=== PATIENT | female | born 1935 | race Caucasian/White ===

== ENCOUNTER → 2017-08-14 | Outpatient (CLI) | payer MEDICARE ==
[~2017-08-14] MED LIST: ACET500 PO; ALBIPROI; ALBIPROI INH; ALBU90OI INH; ALBU90OI6 INH; ALLO100; ALLO300 PO; ARTHRITIS PAIN650 MG PO; ASPI81CH PO; ATOR10; AZIT500 PO; BENZ100A PO; BISA10S PR; CALCAVITD PO; CEPH500 PO; CLIN150 PO; COLC.6 PO; CONEST.625 VAG; CONESTTC PV; CONESTTC VAG; CRUTCH USE; Ceftin500 MG PO; DOC250 PO; DOCU100 PO; DULO30 PO; FAMO40; FLUT220OIA; FOSI10; FOSI10 PO; FURO80; FURO80 PO; GABA100 PO; GABA300 PO; GABA600 PO; GUAI600T33 PO; HYDACE5 PO; Humalog100 UNIT/1 SC; INSLI100I; INSLI100I SC; INSLIS75I; INSUASPI SC; INSULANI; INSULANI SC; INSULANPEN SC; Keflex500 MG PO; LANOXIN125 MCG PO; LEVO750 PO; LEVSOD100 PO; LEVSOD50 PO; LEVSOD75 PO; LISI20 PO; LOPE2C PO; Lantus100 UNIT/1 SC; Lasix80 MG PO; METCAR500 PO; METF500; METF500 PO; METO2.5 PO; MIRALAX17 GM PO; MULTI-DAY PLUS1 EAC1 PO; MYRBETRIQ25 MG PO; Micro-K10 MEQ PO; NITR100CA PO; Novolog100 UNIT/2 SC; OLME20 PO; OXYACE5T PO; OXYC5 PO; PANT40 PO; POLY17UD PO; POTA10T PO; POTCHL20ER; POTCHL20ER PO; PRED10 PO; PYRI100 PO; RXOXYACE PO; SERT100 PO; SERT50 PO; STOOL SOFTENER PO; TAMS.4ER PO; TRAM50 PO; TRAZ50 PO; Veramyst10 GM; Veramyst10 GM NS; Vitamin B Comple1 EA PO; Vitamin D2000 UNIT PO; WARF1; WARF1 PO; WARF5 PO; WHEELCHAIR USE; ZINC15 PO; Zofran Odt4 MG SL; [UNRECOGNIZED DRUG - OTHER]; [UNRECOGNIZED DRUG - OTHER]
[2017-08-14 18:27] LABS: Bilirubin, Urine Neg (Neg); Blood, Urine 1+ (Neg); Glucose Qualitative, Urine Neg (Neg); Ketones, Urine Neg (Neg); Leukocyte Esterase, Urine Neg (Neg); Nitrite, Urine Neg (Neg); Protein, Urine 2+ (Neg); Urobilinogen, Urine NORM (Normal)
[2017-08-14 18:34] LABS: Appearance, Urine Clear (Clear); Color, Urine Pale Yellow (P-Yellow)
[2017-08-14 18:36] LABS: Bacteria Few /hpf; Squamous Epithelial Cells Few /hpf (Few)
== END ==
LOC: LAB SHORT 14:00
PROVIDERS: Internal Medicine Hematology & Oncology
DX: N39.0 Urinary tract infection, site not specified (principal)
CPT/HCPCS: 81001

== ENCOUNTER 2017-11-07 13:05 | Emergency (ER) | payer MEDICARE, OTHER ==
[~2017-11-07] VITALS: Ht 162.6 cm; Wt 105.7 kg
[~2017-11-07 13:05] MED LIST changes: -ACET500 PO; -ALBU90OI INH; -Humalog100 UNIT/1 SC; -LOPE2C PO; -Lasix80 MG PO; -MIRALAX17 GM PO; -PANT40 PO; -POTA10T PO; -TRAM50 PO
[2017-11-07] MEDS ORDERED: ACET500 PO (15:07)
[2017-11-07] MEDS ORDERED: FURO80 PO (15:10)
[2017-11-07 15:12] LABS: BASOPHILS ABSOLUTE AUTO 0.03 K/mm3 (0.00-0.23); BASOPHILS PERCENT AUTO 1 % (0-2); EOSINOPHILS ABSOLUTE AUTO 0.15 K/mm3 (0.00-0.68); EOSINOPHILS PERCENT AUTO 2 % (0-6); Hematocrit 37.1 % (33.0-51.0); Hemoglobin 11.4 g/dL (11.5-16.0); IMMATURE GRAN ABSOLUTE AUTO 0.04 K/mm3 (0.00-0.10); IMMATURE GRAN PERCENT AUTO 1 % (0-1); LYMPHOCYTES ABSOLUTE AUTO 1.27 K/mm3 (0.84-5.20); LYMPHOCYTES PERCENT AUTO 20 % (21-46); MONOCYTES ABSOLUTE AUTO 0.43 K/mm3 (0.16-1.47); MONOCYTES PERCENT AUTO 7 % (4-13); Mean Corpuscular HGB 27.8 pg (26.0-34.0); Mean Corpuscular HGB Conc 30.7 g/dL (31.5-36.5); Mean Corpuscular Volume 91 fL (80-100); NEUTROPHILS ABSOLUTE AUTO 4.32 K/mm3 (1.96-9.15); NEUTROPHILS PERCENT AUTO 69 % (41-73); Platelet Count 107 K/mm3 (150-400); RDW Coefficient Variation 14.8 % (11.7-14.2); RDW Standard Deviation 48.7 fL (35.1-46.3); White Blood Cell Count 6.24 K/mm3 (4.00-11.30)
[2017-11-07 15:16] LABS: Mean Platelet Volume 13.2 fL (9.1-12.4)
[2017-11-07] MEDS ORDERED: Humalog100 UNIT/1 SC (15:16)
[2017-11-07] MEDS ORDERED: ALBU90OI INH (15:19)
[2017-11-07] MEDS ORDERED: LOPE2C PO (15:23)
[2017-11-07] MEDS ORDERED: MIRALAX17 GM PO (15:26)
[2017-11-07] MEDS ORDERED: GUAI600T33 PO (15:28)
[2017-11-07] MEDS ORDERED: PANT40 PO (15:28)
[2017-11-07 15:31] LABS: Prothrombin Time Results 46.2 Sec (9.7-11.5)
[2017-11-07 15:53] LABS: International Normalized Ratio 4.25
== END 2017-11-07 16:38 | disposition home or self-care (01) ==
LOC: ER 13:05
PROVIDERS: Emergency Medicine
DX: M25.562 Pain in left knee (principal); D68.59 Other primary thrombophilia; E11.40 Type 2 diabetes mellitus with diabetic neuropathy, unspecified; Z87.891 Personal history of nicotine dependence; Z88.0 Allergy status to penicillin; Z88.1 Allergy status to other antibiotic agents; Z88.7 Allergy status to serum and vaccine; Z79.01 Long term (current) use of anticoagulants; Z79.4 Long term (current) use of insulin; Z79.899 Other long term (current) drug therapy
CPT/HCPCS: 36415; 73564; 85025; 85610; 93971; 99284

== ENCOUNTER 2017-11-10 18:08 | Emergency (ER) | payer MEDICARE, OTHER ==
[~2017-11-10] VITALS: Ht 167.6 cm; Wt 105.7 kg
[~2017-11-10 18:08] MED LIST changes: +ACET500 PO; +ALBU90OI INH; +Humalog100 UNIT/1 SC; +LOPE2C PO; +MIRALAX17 GM PO; +PANT40 PO
[2017-11-10 19:56] LABS: International Normalized Ratio 1.46; Prothrombin Time Results 15.4 Sec (9.7-11.5)
[2017-11-10] MEDS ORDERED: TRAM50 PO (21:19)
== END 2017-11-10 21:27 | disposition home or self-care (01) ==
LOC: ER 18:08
PROVIDERS: Physician Assistant
DX: M25.562 Pain in left knee (principal); I13.0 Hypertensive heart and chronic kidney disease with heart failure and stage 1 through stage 4 chronic kidney disease, or unspecified chronic kidney disease; E11.22 Type 2 diabetes mellitus with diabetic chronic kidney disease; I50.9 Heart failure, unspecified; N18.9 Chronic kidney disease, unspecified; E11.40 Type 2 diabetes mellitus with diabetic neuropathy, unspecified; I48.91 Unspecified atrial fibrillation; J44.9 Chronic obstructive pulmonary disease, unspecified; E78.5 Hyperlipidemia, unspecified; E03.9 Hypothyroidism, unspecified; F32.9 Major depressive disorder, single episode, unspecified; E66.01 Morbid (severe) obesity due to excess calories; Z88.0 Allergy status to penicillin; Z88.7 Allergy status to serum and vaccine; Z88.1 Allergy status to other antibiotic agents; Z88.8 Allergy status to other drugs, medicaments and biological substances; Z79.899 Other long term (current) drug therapy; Z79.4 Long term (current) use of insulin; Z79.01 Long term (current) use of anticoagulants; Z87.891 Personal history of nicotine dependence; Z68.37 Body mass index [BMI] 37.0-37.9, adult
CPT/HCPCS: 36415; 85610; 93971; 99284

== ENCOUNTER 2017-11-28 00:07 | Day surgery (SDC) | payer MEDICARE, OTHER ==
[~2017-11-28 00:07] MED LIST changes: +TRAM50 PO
== END 2017-11-28 23:04 | disposition home or self-care (01) ==
LOC: WOUND 00:07
DX: Z48.00 Encounter for change or removal of nonsurgical wound dressing (principal); E11.622 Type 2 diabetes mellitus with other skin ulcer; L97.822 Non-pressure chronic ulcer of other part of left lower leg with fat layer exposed; I87.2 Venous insufficiency (chronic) (peripheral); R60.0 Localized edema; I70.209 Unspecified atherosclerosis of native arteries of extremities, unspecified extremity; I50.22 Chronic systolic (congestive) heart failure; E11.40 Type 2 diabetes mellitus with diabetic neuropathy, unspecified; I10 Essential (primary) hypertension; G47.30 Sleep apnea, unspecified
CPT/HCPCS: G0463

== ENCOUNTER 2017-12-02 09:24 | Day surgery (SDC) | payer MEDICARE, OTHER | END 2017-12-02 22:53 | disposition home or self-care (01) | LOC: WOUND 09:24 | DX: Z48.00 Encounter for change or removal of nonsurgical wound dressing (principal); E11.622 Type 2 diabetes mellitus with other skin ulcer; L97.329 Non-pressure chronic ulcer of left ankle with unspecified severity; I87.2 Venous insufficiency (chronic) (peripheral); I11.0 Hypertensive heart disease with heart failure; R60.0 Localized edema; I70.209 Unspecified atherosclerosis of native arteries of extremities, unspecified extremity; I50.22 Chronic systolic (congestive) heart failure; E11.40 Type 2 diabetes mellitus with diabetic neuropathy, unspecified; Z79.01 Long term (current) use of anticoagulants | CPT/HCPCS: G0463 ==

== ENCOUNTER 2018-02-17 08:03 | Day surgery (SDC) | payer MEDICARE, OTHER ==
[~2018-02-17] VITALS: Ht 162.6 cm; Wt 103.6 kg
== END 2018-02-17 11:35 | disposition home or self-care (01) ==
LOC: ORSCSDS 08:03
PROVIDERS: Internal Medicine Gastroenterology
PROC: 0DBN8ZX Excision of Sigmoid Colon, Via Natural or Artificial Opening Endoscopic, Diagnostic (ICD-10-PCS; principal; 2018-02-17 10:00)
DX: Z12.11 Encounter for screening for malignant neoplasm of colon (principal); D12.5 Benign neoplasm of sigmoid colon; K57.30 Diverticulosis of large intestine without perforation or abscess without bleeding; Z86.010 Personal history of colon polyps; I48.91 Unspecified atrial fibrillation; I50.9 Heart failure, unspecified; J44.9 Chronic obstructive pulmonary disease, unspecified; G47.33 Obstructive sleep apnea (adult) (pediatric); E11.9 Type 2 diabetes mellitus without complications; E03.9 Hypothyroidism, unspecified; Z87.891 Personal history of nicotine dependence; Z79.01 Long term (current) use of anticoagulants; Z79.4 Long term (current) use of insulin; Z79.899 Other long term (current) drug therapy; E66.9 Obesity, unspecified; Z68.39 Body mass index [BMI] 39.0-39.9, adult
CPT/HCPCS: 82947; 88305; J2405; J7120

== ENCOUNTER → 2018-07-30 | Outpatient (CLI) | payer OTHER ==
[~2018-07-30] MED LIST changes: +Lasix80 MG PO; +POTA10T PO
== END | disposition home or self-care (01) ==
LOC: LAB SHORT 13:30 → LAB 13:30
DX: E11.9 Type 2 diabetes mellitus without complications (principal)
CPT/HCPCS: 83036

== ENCOUNTER 2018-08-18 12:03 | Emergency (ER) | payer OTHER ==
[~2018-08-18] VITALS: Ht 165.1 cm; Wt 104.3 kg
[~2018-08-18 12:03] MED LIST changes: -8HR ARTHRITIS650 M1 PO; -DIGOX125 MCG PO; -ERGO400 PO; -GLUCAGEN1 MG/1 ML IM; -K-Dur20 MEQ PO; -Novolog100 UNIT/2; -WARF6 PO; -Zoloft100 MG PO; -Zyloprim300 MG PO
[2018-09-24] MEDS ORDERED: INSULANPEN SC ×2 (12:35)
[2018-09-24] MEDS ORDERED: FURO80 PO (12:36)
[2018-09-24] MEDS ORDERED: Novolog100 UNIT/2 (12:36)
[2018-09-24] MEDS ORDERED: LEVSOD100 PO (12:37)
[2018-09-24] MEDS ORDERED: GABA600 PO (12:37)
[2018-09-24] MEDS ORDERED: DIGOX125 MCG PO (12:37)
[2018-09-24] MEDS ORDERED: WARF6 PO (12:37)
[2018-09-24] MEDS ORDERED: Zoloft100 MG PO (12:38)
[2018-09-24] MEDS ORDERED: 8HR ARTHRITIS650 M1 PO (12:38)
[2018-09-24] MEDS ORDERED: Zyloprim300 MG PO (12:38)
[2018-09-24] MEDS ORDERED: ERGO400 PO (12:39)
[2018-09-24] MEDS ORDERED: GLUCAGEN1 MG/1 ML IM (12:39)
[2018-09-24] MEDS ORDERED: K-Dur20 MEQ PO (12:40)
[2018-09-24] MEDS ORDERED: ALBU90OI INH (12:40)
[2018-09-24] MEDS ORDERED: TAMS.4ER PO (12:40)
[2018-09-24] MEDS ORDERED: GUAI600T33 PO (12:40)
[2018-09-24] MEDS ORDERED: TRAM50 PO (12:41)
[2018-09-24] MEDS ORDERED: MIRALAX17 GM PO (12:41)
[2018-09-24] MEDS ORDERED: PANT40 PO (12:41)
== END 2018-08-18 16:07 | disposition home or self-care (01) ==
LOC: ER 12:03
DX: R42 Dizziness and giddiness (principal); R79.1 Abnormal coagulation profile; R79.89 Other specified abnormal findings of blood chemistry; I13.0 Hypertensive heart and chronic kidney disease with heart failure and stage 1 through stage 4 chronic kidney disease, or unspecified chronic kidney disease; E11.22 Type 2 diabetes mellitus with diabetic chronic kidney disease; N18.9 Chronic kidney disease, unspecified; I50.9 Heart failure, unspecified; I48.91 Unspecified atrial fibrillation; J44.9 Chronic obstructive pulmonary disease, unspecified; E78.5 Hyperlipidemia, unspecified; E03.9 Hypothyroidism, unspecified; F32.9 Major depressive disorder, single episode, unspecified; E11.40 Type 2 diabetes mellitus with diabetic neuropathy, unspecified; Z88.0 Allergy status to penicillin; Z88.8 Allergy status to other drugs, medicaments and biological substances; Z88.1 Allergy status to other antibiotic agents; Z79.899 Other long term (current) drug therapy; Z79.01 Long term (current) use of anticoagulants; Z79.4 Long term (current) use of insulin; Z87.891 Personal history of nicotine dependence; Z51.81 Encounter for therapeutic drug level monitoring
CPT/HCPCS: 36415; 80053; 80162; 84436; 84443; 84480; 84484; 85025; 85610; 93005; 93010; 99284-25

== ENCOUNTER → 2018-08-18 | Outpatient (CLI) | payer OTHER ==
[~2018-08-18] MED LIST changes: +8HR ARTHRITIS650 M1 PO; +DIGOX125 MCG PO; +ERGO400 PO; +GLUCAGEN1 MG/1 ML IM; +K-Dur20 MEQ PO; +Novolog100 UNIT/2; +WARF6 PO; +Zoloft100 MG PO; +Zyloprim300 MG PO
[2018-08-18 11:12] LABS: BASOPHILS ABSOLUTE AUTO 0.02 K/mm3 (0.00-0.23); BASOPHILS PERCENT AUTO 0 % (0-2); EOSINOPHILS ABSOLUTE AUTO 0.08 K/mm3 (0.00-0.68); EOSINOPHILS PERCENT AUTO 1 % (0-6); Hematocrit 37.8 % (33.0-51.0); Hemoglobin 11.3 g/dL (11.5-16.0); IMMATURE GRAN ABSOLUTE AUTO 0.04 K/mm3 (0.00-0.10); IMMATURE GRAN PERCENT AUTO 1 % (0-1); LYMPHOCYTES ABSOLUTE AUTO 0.75 K/mm3 (0.84-5.20); LYMPHOCYTES PERCENT AUTO 12 % (21-46); MONOCYTES ABSOLUTE AUTO 0.43 K/mm3 (0.16-1.47); MONOCYTES PERCENT AUTO 7 % (4-13); Mean Corpuscular HGB 26.4 pg (26.0-34.0); Mean Corpuscular HGB Conc 29.9 g/dL (31.5-36.5); Mean Corpuscular Volume 88 fL (80-100); Mean Platelet Volume 13.5 fL (9.1-12.4); NEUTROPHILS ABSOLUTE AUTO 4.99 K/mm3 (1.96-9.15); NEUTROPHILS PERCENT AUTO 79 % (41-73); Platelet Count 105 K/mm3 (150-400); RDW Coefficient Variation 15.4 % (11.7-14.2); RDW Standard Deviation 49.1 fL (35.1-46.3); Red Blood Cell Count 4.28 M/mm3 (3.80-5.20); White Blood Cell Count 6.31 K/mm3 (4.00-11.30)
[2018-08-18 11:26] LABS: Albumin, Blood 3.3 g/dL (3.4-5.0); Albumin/Globulin Ratio 0.9 (0.8-1.8); Bilirubin, Total 0.3 mg/dL (0.1-1.0); Bun/Creatinine Ratio 41.3 (12.0-20.0); Calcium, Blood 9.5 mg/dL (8.5-10.1); Creatinine, Blood 1.55 mg/dL (0.40-1.00); Globulin, Blood 3.8 g/dL (2.2-4.0); Potassium, Blood 4.8 mmol/L (3.5-5.5); Total Protein, Blood 7.1 g/dL (6.4-8.2)
[2018-08-18 12:18] LABS: Prothrombin Time Results 39.9 Sec (9.7-11.5)
[2018-08-18 12:36] LABS: International Normalized Ratio 4.2
== END ==
LOC: LAB EV 11:08 → LAB SHORT 11:08
PROVIDERS: Physician Assistant Medical
DX: Z79.01 Long term (current) use of anticoagulants (principal); Z51.81 Encounter for therapeutic drug level monitoring; R42 Dizziness and giddiness
CPT/HCPCS: 80053; 80162; 85025; 85610

== ENCOUNTER 2018-08-21 14:12 | Emergency (ER) | payer OTHER ==
[~2018-08-21] VITALS: Ht 162.6 cm; Wt 103.9 kg
[2018-08-21 15:32] LABS: BASOPHILS ABSOLUTE AUTO 0.03 K/mm3 (0.00-0.23); BASOPHILS PERCENT AUTO 1 % (0-2); EOSINOPHILS ABSOLUTE AUTO 0.14 K/mm3 (0.00-0.68); EOSINOPHILS PERCENT AUTO 2 % (0-6); Hematocrit 35.4 % (33.0-51.0); Hemoglobin 10.4 g/dL (11.5-16.0); IMMATURE GRAN ABSOLUTE AUTO 0.04 K/mm3 (0.00-0.10); IMMATURE GRAN PERCENT AUTO 1 % (0-1); LYMPHOCYTES ABSOLUTE AUTO 1.51 K/mm3 (0.84-5.20); LYMPHOCYTES PERCENT AUTO 23 % (21-46); MONOCYTES PERCENT AUTO 6 % (4-13); Mean Corpuscular HGB 26.7 pg (26.0-34.0); Mean Corpuscular HGB Conc 29.4 g/dL (31.5-36.5); NEUTROPHILS ABSOLUTE AUTO 4.51 K/mm3 (1.96-9.15); NEUTROPHILS PERCENT AUTO 68 % (41-73); Platelet Count 100 K/mm3 (150-400); RDW Coefficient Variation 15.2 % (11.7-14.2); RDW Standard Deviation 50.8 fL (35.1-46.3); White Blood Cell Count 6.63 K/mm3 (4.00-11.30)
[2018-08-21 15:41] LABS: Albumin, Blood 3.2 g/dL (3.4-5.0); Albumin/Globulin Ratio 0.9 (0.8-1.8); Bilirubin, Total 0.3 mg/dL (0.1-1.0); Bun/Creatinine Ratio 38.5 (12.0-20.0); Creatinine, Blood 1.48 mg/dL (0.40-1.00); Globulin, Blood 3.6 g/dL (2.2-4.0); Potassium, Blood 4.9 mmol/L (3.5-5.5); Total Protein, Blood 6.8 g/dL (6.4-8.2)
[2018-08-21 15:53] LABS: Mean Corpuscular Volume 91 fL (80-100); Mean Platelet Volume 13.9 fL (9.1-12.4)
[2018-09-24] MEDS ORDERED: INSULANPEN SC ×2 (12:35)
[2018-09-24] MEDS ORDERED: FURO80 PO (12:36)
[2018-09-24] MEDS ORDERED: Novolog100 UNIT/2 (12:36)
[2018-09-24] MEDS ORDERED: DIGOX125 MCG PO (12:37)
[2018-09-24] MEDS ORDERED: WARF6 PO (12:37)
[2018-09-24] MEDS ORDERED: LEVSOD100 PO (12:37)
[2018-09-24] MEDS ORDERED: GABA600 PO (12:37)
[2018-09-24] MEDS ORDERED: Zyloprim300 MG PO (12:38)
[2018-09-24] MEDS ORDERED: 8HR ARTHRITIS650 M1 PO (12:38)
[2018-09-24] MEDS ORDERED: Zoloft100 MG PO (12:38)
[2018-09-24] MEDS ORDERED: ERGO400 PO (12:39)
[2018-09-24] MEDS ORDERED: GLUCAGEN1 MG/1 ML IM (12:39)
[2018-09-24] MEDS ORDERED: GUAI600T33 PO (12:40)
[2018-09-24] MEDS ORDERED: ALBU90OI INH (12:40)
[2018-09-24] MEDS ORDERED: K-Dur20 MEQ PO (12:40)
[2018-09-24] MEDS ORDERED: TAMS.4ER PO (12:40)
[2018-09-24] MEDS ORDERED: MIRALAX17 GM PO (12:41)
[2018-09-24] MEDS ORDERED: PANT40 PO (12:41)
[2018-09-24] MEDS ORDERED: TRAM50 PO (12:41)
== END 2018-08-21 20:10 | disposition home or self-care (01) ==
LOC: ER 14:12
PROVIDERS: Physician Assistant
DX: L03.116 Cellulitis of left lower limb (principal); E11.40 Type 2 diabetes mellitus with diabetic neuropathy, unspecified; M10.9 Gout, unspecified; Z87.891 Personal history of nicotine dependence; Z79.4 Long term (current) use of insulin; Z79.899 Other long term (current) drug therapy; Z79.01 Long term (current) use of anticoagulants
CPT/HCPCS: 36415; 73590; 80053; 83605; 84436; 84443; 84480; 85025; 85610; 87040; 96365; 99284-25; J0690

== ENCOUNTER → 2018-10-21 | Outpatient (CLI) | payer OTHER ==
[~2018-10-21] MED LIST changes: +8HR ARTHRITIS650 M1 PO; +DIGOX125 MCG PO; +ERGO400 PO; +GLUCAGEN1 MG/1 ML IM; +K-Dur20 MEQ PO; +Novolog100 UNIT/2; +WARF6 PO; +Zoloft100 MG PO; +Zyloprim300 MG PO
[2018-10-21 09:08] LABS: Source, Urine Clean Catch
[2018-10-21 09:19] LABS: Bilirubin, Urine Neg (Neg); Blood, Urine 1+ (Neg); Glucose Qualitative, Urine Neg (Neg); Ketones, Urine Neg (Neg); Leukocyte Esterase, Urine 3+ (Neg); Nitrite, Urine Neg (Neg); Protein, Urine 2+ (Neg); Specific Gravity, Urine 1.005 (1.003-1.022); Urobilinogen, Urine NORM (Normal)
[2018-10-21 09:37] LABS: Appearance, Urine Hazy (Clear); Bacteria Few /hpf; Color, Urine Pale Yellow (P-Yellow); Red Blood Cells, Urine 0-2 /hpf (0-2); Squamous Epithelial Cells Few /hpf (Few)
== END ==
LOC: LAB 09:06 → LAB SHORT 09:06
PROVIDERS: Internal Medicine Hematology & Oncology
DX: N39.0 Urinary tract infection, site not specified (principal)
CPT/HCPCS: 81001; 87077; 87086; 87186

== ENCOUNTER 2018-11-10 09:51 | Emergency (ER) | payer OTHER ==
[~2018-11-10] VITALS: Ht 167.6 cm; Wt 108.9 kg
[~2018-11-10 09:51] MED LIST changes: -8HR ARTHRITIS650 M1 PO; +LEVSOD88 PO; +Tylophen500 MG PO; -WARF6 PO
[2018-11-10] MEDS ORDERED: MECL12.5 PO (15:36)
[2018-11-11] MEDS ORDERED: FURO80 PO (13:01)
[2018-11-11] MEDS ORDERED: LOSA25 PO (13:06)
[2018-11-11] MEDS ORDERED: ROPI.25 PO (13:07)
== END 2018-11-10 17:00 | disposition home or self-care (01) ==
LOC: ER 09:51
DX: R42 Dizziness and giddiness (principal); R11.0 Nausea; Z88.0 Allergy status to penicillin; Z88.7 Allergy status to serum and vaccine; Z88.1 Allergy status to other antibiotic agents; Z88.8 Allergy status to other drugs, medicaments and biological substances; Z79.4 Long term (current) use of insulin; Z79.01 Long term (current) use of anticoagulants; Z79.899 Other long term (current) drug therapy; E11.40 Type 2 diabetes mellitus with diabetic neuropathy, unspecified; J44.9 Chronic obstructive pulmonary disease, unspecified; I13.0 Hypertensive heart and chronic kidney disease with heart failure and stage 1 through stage 4 chronic kidney disease, or unspecified chronic kidney disease; E11.22 Type 2 diabetes mellitus with diabetic chronic kidney disease; N18.3 Chronic kidney disease, stage 3 (moderate); I50.32 Chronic diastolic (congestive) heart failure; Z87.891 Personal history of nicotine dependence
CPT/HCPCS: 70450; 99284-25

== ENCOUNTER 2018-11-11 12:07 | Inpatient (IN) | payer OTHER ==
[~2018-11-11] VITALS: Ht 172.7 cm; Wt 103.0 kg
[~2018-11-11 12:07] MED LIST changes: +MECL12.5 PO
[2018-11-11] MEDS ORDERED: FURO80 PO (13:01)
[2018-11-11] MEDS ORDERED: LOSA25 PO (13:06)
[2018-11-11] MEDS ORDERED: ROPI.25 PO (13:07)
[2018-11-11 14:53] LABS: D-Dimer, Quantitative 0.56 mg/L FEU (0.00-0.52); International Normalized Ratio 1.94; Prothrombin Time Results 19.4 Sec (9.7-11.5)
[2018-11-11 15:23] LABS: Bicarbonate Venous 30.5 mmol/L (24.0-30.0); pH Blood Venous 7.33 (7.34-7.37)
[2018-11-11 17:49] LABS: PCO2 Arterial 59.5 mmHg (35-45); pH Blood Arterial 7.37 (7.35-7.45)
[2018-11-11 17:50] LABS: PO2 Arterial 49.5 mmHg (80-100)
[2018-11-11 18:24] LABS: BASOPHILS ABSOLUTE AUTO 0.04 K/mm3 (0.00-0.23); BASOPHILS PERCENT AUTO 1 % (0-2); EOSINOPHILS ABSOLUTE AUTO 0.19 K/mm3 (0.00-0.68); EOSINOPHILS PERCENT AUTO 3 % (0-6); Hematocrit 40.5 % (33.0-51.0); Hemoglobin 11.4 g/dL (11.5-16.0); IMMATURE GRAN ABSOLUTE AUTO 0.03 K/mm3 (0.00-0.10); IMMATURE GRAN PERCENT AUTO 0 % (0-1); LYMPHOCYTES ABSOLUTE AUTO 1.71 K/mm3 (0.84-5.20); LYMPHOCYTES PERCENT AUTO 23 % (21-46); MONOCYTES ABSOLUTE AUTO 0.48 K/mm3 (0.16-1.47); MONOCYTES PERCENT AUTO 6 % (4-13); Mean Corpuscular HGB 25.3 pg (26.0-34.0); Mean Corpuscular HGB Conc 28.1 g/dL (31.5-36.5); Mean Corpuscular Volume 90 fL (80-100); NEUTROPHILS ABSOLUTE AUTO 5.13 K/mm3 (1.96-9.15); NEUTROPHILS PERCENT AUTO 68 % (41-73); Platelet Count 117 K/mm3 (150-400); RDW Coefficient Variation 15.4 % (11.7-14.2); RDW Standard Deviation 50.6 fL (35.1-46.3); White Blood Cell Count 7.58 K/mm3 (4.00-11.30)
[2018-11-11 18:33] LABS: Albumin, Blood 3.2 g/dL (3.4-5.0); Albumin/Globulin Ratio 0.8 (0.8-1.8); Bilirubin, Total 0.4 mg/dL (0.1-1.0); Bun/Creatinine Ratio 41.3 (12.0-20.0); Calcium, Blood 9.2 mg/dL (8.5-10.1); Creatinine, Blood 1.79 mg/dL (0.40-1.00); Globulin, Blood 3.9 g/dL (2.2-4.0); Total Protein, Blood 7.1 g/dL (6.4-8.2)
[2018-11-11 18:54] LABS: Digoxin (Lanoxin) 1.21 ug/mL (0.80-2.00)
--- NOTE | 2018-11-11 22:30 | NUR ---
PCU ADMIT PT BROUGHT TO PCU RM 13 FROM THE ER BY LIZETH @ APPROX 2110. PT A&O X4, ABLE TO STAND AND TRANSFER FROM [facility] TO U BED W/ 1 PERSON ASSIST. PT SOB W/ ACTIVITY. SPO2 > 90% W/ 2L NC. LUNG SOUNDS CLEAR T/O, DIM IN BASES. OCCASSIONAL NONPRODUCTIVE COUGH. MONITOR SHOWS SR W/ FIRST DEGREE & BUNDLE BRANCH BLOCK. SKIN CLEAN AND DRY, SCATTERED BRUISING T/O. BUTTOCKS PURPLE/RED W/ 1 DIME SIZED OPEN SORE, SEE PHOTO IN CHART, MEPILEX DRESSING APPLIED. PT STATES HAVING CHRONIC L LEG ULCER THAT SHE SEES MD BRAXTON FOR. PT STATES L LEG WOUND DRESSED BY MD BRAXTON. DRESSING C/D/I. THIS RN LEAVING DRESSING IN PLACE. PT IS A RESIDENT AT "[facility]" [facility]IST[facility]. WILL CONTINUE TO MONITOR AND PROVIDE CARE.
--- NOTE | 2018-11-12 04:44 | NUR ---
SHIFT SUMMARY PT A&O X4, CALM AND COOPERATIVE. PT SLEEPING T/O MAJORITY OF SHIFT. LUNG SOUNDS CLEAR T/O, DIM IN BASES. SPO2 > 92% ON RA WHILE AT REST. PT SOB W/ MINOR ACTIVTY LIKE REPOSITIONING IN BED, RECQUIRING O2 @ 2L NC. PT HAS OCCASSIONAL NONPRODUCTIVE COUGH. RESPIRATORY PANEL SPECIMEN SENT TO LAB THIS SHIFT. VSS. SEE PREVIOUS ADMIT NOTE FOR FURTHER DETAILED SUMMARY. WILL CONTINUE TO MONITOR AND PROVIDE CARE FOR PT UNTIL REPORT OFF TO DAY SHIFT RN.
[2018-11-12 05:28] LABS: Adenovirus Not Detected (NOT DETECT); Bordetella pertussis Not Detected (NOT DETECT); Chlamydophila pneumoniae Not Detected (NOT DETECT); Coronavirus 229E Not Detected (NOT DETECT); Coronavirus HKU1 Not Detected (NOT DETECT); Coronavirus NL63 Not Detected (NOT DETECT); Coronavirus OC43 Not Detected (NOT DETECT); Human Metapneumovirus Not Detected (NOT DETECT); Human Rhinovirus/Enterovirus Not Detected (NOT DETECT); Influenza A Not Detected (NOT DETECT); Influenza A/2009-H1 Not Detected (NOT DETECT); Influenza A/H1 Not Detected (NOT DETECT); Influenza A/H3 Not Detected (NOT DETECT); Influenza B Not Detected (NOT DETECT); Mycoplasma pneumoniae Not Detected (NOT DETECT); Parainfluenza Virus 1 Not Detected (NOT DETECT); Parainfluenza Virus 2 Not Detected (NOT DETECT); Parainfluenza Virus 3 Not Detected (NOT DETECT); Parainfluenza Virus 4 Not Detected (NOT DETECT); Respiratory Syncytial Virus Not Detected (NOT DETECT)
[2018-11-12 06:03] LABS: Hematocrit 37.2 % (33.0-51.0); Hemoglobin 10.5 g/dL (11.5-16.0); Mean Corpuscular HGB 25.2 pg (26.0-34.0); Mean Corpuscular HGB Conc 28.2 g/dL (31.5-36.5); Mean Corpuscular Volume 89 fL (80-100); Platelet Count 96 K/mm3 (150-400); RDW Coefficient Variation 15.3 % (11.7-14.2); RDW Standard Deviation 50.1 fL (35.1-46.3); Red Blood Cell Count 4.16 M/mm3 (3.80-5.20); White Blood Cell Count 6.28 K/mm3 (4.00-11.30)
[2018-11-12 06:22] LABS: International Normalized Ratio 2.02; Prothrombin Time Results 20.1 Sec (9.7-11.5)
[2018-11-12 06:42] LABS: Source, Urine Catheter
[2018-11-12 06:48] LABS: Appearance, Urine Clear (Clear); Bilirubin, Urine Neg (Neg); Blood, Urine 4+ (Neg); Color, Urine Yellow (P-Yellow); Glucose Qualitative, Urine Neg (Neg); Ketones, Urine Neg (Neg); Leukocyte Esterase, Urine 1+ (Neg); Nitrite, Urine Neg (Neg); Protein, Urine 2+ (Neg); Specific Gravity, Urine 1.015 (1.003-1.022); Urobilinogen, Urine NORM (Normal)
[2018-11-12 06:56] LABS: Bacteria Few /hpf; Granular Casts 0-2 /lpf (0); Squamous Epithelial Cells Rare /hpf (Few)
[2018-11-12 07:00] LABS: Bun/Creatinine Ratio 44.7 (12.0-20.0); Calcium, Blood 9.2 mg/dL (8.5-10.1); Creatinine, Blood 1.59 mg/dL (0.40-1.00); Potassium, Blood 4.4 mmol/L (3.5-5.5)
--- NOTE | 2018-11-12 15:16 | NUR ---
Echocardiogram completed.
--- NOTE | 2018-11-12 17:23 | NUR ---
SHIFT SUMMARY PT HAS BEEN SLEEPING A LOT OF THE SHIFT. SHORTNESS OF BREATH WITH 02 DESATURATION WITH EXERTION. THIS RN HAD TO INCREASED PT'S OXYGEN TO 3L FROM 2L THIS AM. PT'S OXYGEN SATURATION 90-91%. NO COMPLAINTS OF PAIN THIS SHIFT. DRESSING TO LLE INTACT. NO ACUTE CHANGES THIS SHIFT. CALL LIGHT IN REACH. BED ALARM ON FOR FALL RISK SAFETY. WILL CONTINUE TO MONITOR AND REPORT TO ONCOMING RN.
--- NOTE | 2018-11-13 04:06 | NUR ---
SHIFT SUMMARY: PATIENT SLEPT WELL THIS SHIFT, UP TO BSC X2 WITH 1 PERSON MINIMAL ASSIST. PATIENT USING CALL LIGHT APPROPRIATLY, VSS, AFEBRILE. PATIENT RIGHT COLON APPEARS TO HAVE A NEW ABRASION, WILL PLACE MEPELEX ON. BED LOW AND LOCKED, CALL LIGHT WITHIN REACH, MONITORED CLOSELY.
[2018-11-13 04:22] LABS: BASOPHILS ABSOLUTE AUTO 0.03 K/mm3 (0.00-0.23); BASOPHILS PERCENT AUTO 1 % (0-2); EOSINOPHILS ABSOLUTE AUTO 0.23 K/mm3 (0.00-0.68); EOSINOPHILS PERCENT AUTO 4 % (0-6); Hematocrit 36.7 % (33.0-51.0); Hemoglobin 10.4 g/dL (11.5-16.0); IMMATURE GRAN ABSOLUTE AUTO 0.02 K/mm3 (0.00-0.10); IMMATURE GRAN PERCENT AUTO 0 % (0-1); LYMPHOCYTES ABSOLUTE AUTO 1.33 K/mm3 (0.84-5.20); LYMPHOCYTES PERCENT AUTO 21 % (21-46); MONOCYTES ABSOLUTE AUTO 0.38 K/mm3 (0.16-1.47); MONOCYTES PERCENT AUTO 6 % (4-13); Mean Corpuscular HGB 25.7 pg (26.0-34.0); Mean Corpuscular HGB Conc 28.3 g/dL (31.5-36.5); Mean Corpuscular Volume 91 fL (80-100); NEUTROPHILS ABSOLUTE AUTO 4.23 K/mm3 (1.96-9.15); NEUTROPHILS PERCENT AUTO 68 % (41-73); Platelet Count 109 K/mm3 (150-400); RDW Coefficient Variation 15.2 % (11.7-14.2); RDW Standard Deviation 50.8 fL (35.1-46.3); Red Blood Cell Count 4.04 M/mm3 (3.80-5.20); White Blood Cell Count 6.22 K/mm3 (4.00-11.30)
[2018-11-13 04:34] LABS: International Normalized Ratio 2.38; Prothrombin Time Results 23.3 Sec (9.7-11.5)
[2018-11-13 04:42] LABS: Albumin, Blood 3.1 g/dL (3.4-5.0); Anion Gap 2 mmol/L (6-16); Blood Urea Nitrogen 66 mg/dL (8-24); Bun/Creatinine Ratio 41.5 (12.0-20.0); CO2, Blood 37 mmol/L (21-32); Calcium, Blood 9.3 mg/dL (8.5-10.1); Chloride, Blood 104 mmol/L (98-108); Creatinine, Blood 1.59 mg/dL (0.40-1.00); Glomerular Filtration Rate 33 (60-); Glucose, Blood 142 mg/dL (70-99); Phosphorus, Blood 3.1 mg/dL (2.5-4.9); Potassium, Blood 4.3 mmol/L (3.5-5.5); Sodium, Blood 143 mmol/L (136-145); Troponin I 0.063 ng/mL (0.000-0.040)
--- NOTE | 2018-11-13 19:18 | NUR ---
END OF SHIFT SUMMARY PT HAS BEEN POLITE AND COOPERATIVE WITH CARE ALL SHIFT. PT AXO 4, LUNGS LEAR TO DIM, NSR BBB 1 DEGREE BLOCK. VS STABLE T/O SHIFT EXCEPT EPISODE OF HTN TREATED WITH APRESOLINE. PT ACTIVELY DIURESING, HAS VOIDED MULTIPLE TIMES THIS SHIFT. PT CONTINUES TO BE ON 3L NC, O2 SAT >92%. PER PT, DR BRAXTON PODIATRY WAS SUPPOSED TO COME AND ASSESS LLE STATUS WITH UNABOOT, DR NOT PRESENT THIS SHIFT. DUE TO SLIGHY BUMPED TROPONIN, DR VILLA ASKED FOR CARDIOLOGY CONSULT, DR ALVAREZ TO SEE PATIENT. NO NEW REPORT AVAILABLE AT THIS POINT. DR APARICIO PLANNING TO DC PT IF OK'S BY CARDIOLOGY. [facility], PTS LIVING FACILITY, DOES NOT ACCEPT INTAKES ON WEEKEND. PT TO BE HERE UNTIL FRIDAY. ONCOMING NURSE NOTIFIED. PT AWARE OF THIS.
--- NOTE | 2018-11-13 19:45 | NUR ---
ASSUMED CARE PT RESTING IN ROOM COMFORTBALY. PER DAY SHIFT PT HAD NO ACUTE CHANGES IN STATUS. PT TO BE DC'D HOME TO [facility] AFTER WEEKEND, INTERMEDIATE WILL NOT TAKE ADMITS OVER WEEKEND. CARDIO ON CASE TO ASSESS PT FOR DC. RESP EVEN UNLBAORED ON 3L NC O2 SATS >92%, PT DOES DESAT W/ EXERTION. DENIES PAIN. PREVENTATIVE MEPILEX TO RLE, PT REPORTS SEE'S DR BRAXTON FOR CHRONIC WOUND TO COLON. CALL LIGHT IS IN REACH. PT IS SBA TO BSC. OCCASIONALLY CONFUSED. CALL LIGHT IS IN REACH.
[2018-11-14 04:59] LABS: BASOPHILS ABSOLUTE AUTO 0.03 K/mm3 (0.00-0.23); BASOPHILS PERCENT AUTO 1 % (0-2); EOSINOPHILS ABSOLUTE AUTO 0.25 K/mm3 (0.00-0.68); EOSINOPHILS PERCENT AUTO 4 % (0-6); Hematocrit 36.8 % (33.0-51.0); Hemoglobin 10.5 g/dL (11.5-16.0); IMMATURE GRAN ABSOLUTE AUTO 0.04 K/mm3 (0.00-0.10); IMMATURE GRAN PERCENT AUTO 1 % (0-1); LYMPHOCYTES PERCENT AUTO 21 % (21-46); MONOCYTES ABSOLUTE AUTO 0.45 K/mm3 (0.16-1.47); MONOCYTES PERCENT AUTO 7 % (4-13); Mean Corpuscular HGB 25.6 pg (26.0-34.0); Mean Corpuscular HGB Conc 28.5 g/dL (31.5-36.5); Mean Corpuscular Volume 90 fL (80-100); NEUTROPHILS ABSOLUTE AUTO 4.16 K/mm3 (1.96-9.15); NEUTROPHILS PERCENT AUTO 67 % (41-73); Platelet Count 109 K/mm3 (150-400); RDW Coefficient Variation 15.4 % (11.7-14.2); RDW Standard Deviation 50.4 fL (35.1-46.3); White Blood Cell Count 6.23 K/mm3 (4.00-11.30)
[2018-11-14 05:09] LABS: International Normalized Ratio 2.07; Prothrombin Time Results 20.5 Sec (9.7-11.5)
[2018-11-14 05:14] LABS: Bun/Creatinine Ratio 46.6 (12.0-20.0); Calcium, Blood 9.6 mg/dL (8.5-10.1); Creatinine, Blood 1.46 mg/dL (0.40-1.00); Potassium, Blood 4.1 mmol/L (3.5-5.5)
--- NOTE | 2018-11-14 05:30 | NUR ---
SHIFT SUMMARY PT SLEEPING IN ROOM COMFORTABLY. NO ACUTE CHANGES IN STATUS T/O NIGHT. PT SLEPT WELL AND HAD NO COMPLAINST OF PAIN. RESP EVEN UNLBAORED ON 3L NC W/ SATS >92%. PT TOOK O2 OFF MULTIPLE TIMES DURING NIGHT WHILE SLEEPING, SATS DROPPED AT THESE TIMES. ONCE OXYGEN WAS REPLACED SATS INCREASED TO 90-92%. DENIES PAIN, DENIES OTHER NEEDS. PT ABLE TO REPOSITION SELF IN BED. CALL LIGHT IN REACH.
--- NOTE | 2018-11-14 15:22 | NUR ---
Just minutes after starting the azithromycin and vancomycin infusions, the pt had sudden onset nausea without vomiting. Both IVPBs were paused and the pt was given zofran. She reports feeling better now. Azithromycin was restarted, and the vancomycin will be administered afterwards.
--- NOTE | 2018-11-14 15:31 | NUR ---
PHYSICIAN NOTIFIED 1400 PT HAS BEEN NOTICEABLY LESS COHERENT TODAY AND INCREASINGLY SOMNOLENT. PT ADMITS TO HAVING OBSTRUCTIVE SLEEP APNEA BUT HAS REFUSED TO USE CPAP. DR APARICIO CALLED ABOUT THE SOMNOLENCE AND COHERENCY. DR APARICIO PLACES ORDER FOR RT TO SET UP CPAP. STATES ABG'S WILL BE USELESS IF PATIENT WILL NOT AT LEAST USE CPAP TO HELP WITH OXYGENATION WHILE SLEEPING.
--- NOTE | 2018-11-14 19:38 | NUR ---
END OF SHIFT SUMMARY ASSUMED CARE OF PT @07OO. PT SOMNOLENT, MORE THAN LAST SHIFT, SOMEWHAT CONFUSED. PT MENTAL STATUS DECREASED ENOUGH TO CALL PROVIDER. SEE PREV NOTE REGARDING CALL. A RESULT OF CALL, RT CALLED TO SETUP CPAP IN ROOM. PT HAS TOLERATED IT AND STATES BEING WILLING TO ATTEMPT USING IT WHILE SLEEPING TONIGHT. PT'S MENTAL SLUGGISHNESS HAS DECREASED THIS PM SINCE AM, PT NOW NOT FALLING ASLEEP MID SENTENCE AND IS HOLDING LONG CONVERSATIONS WITH STAFF. VS HAVE REMAINED STABLE THIS SHIFT. PT HAS BEEN UP TO BSC AND CHAIR MULTIPLE TIMES THIS SHIFT. NO DR TO CHECK UNABOOT. LUNG INFILTRATES FOUND, DR ORDERED THREE STAT ABX, NEW LINE STARTED TO ACCOMMODATE. ALL ABX HAVE BEEN INFUSED. PT NOW SITTING IN CHAIR EATING. HANDOFF GIVEN TO ONCOMING RN.
--- NOTE | 2018-11-14 19:45 | NUR ---
ASSUMED CARE PT IS RESTING IN RECLINER AT BEDSIDE AT THIS TIME. PER DAY SHIFT PT HAD SOME CHANGES IN STAYS, NEW INFILTRATES IN LUNG WERE FOUND. PT WAS PLACED ON MULTIPLE ABX TO TREAT, W/ A CPAP TRIAL FOR OVERNIGHT. PT WORE CPAP FOR SHORT PERIODS DURING THE DAY AND TOLERATED FAIR. PT REPORTS WILL TRY TO WEAR MASK TONIGHT. RESP EVEN UNLBAORED ON 3L NC W/ SATS 90-92%. DENIES PAIN AT THIS TIME. PT IS SBA TO RR W/ 4WW. SOME DYSPNEA W/ AMBULATION. CALL LIGHT IS IN REACH.
[2018-11-15 04:22] LABS: BASOPHILS ABSOLUTE AUTO 0.02 K/mm3 (0.00-0.23); BASOPHILS PERCENT AUTO 0 % (0-2); EOSINOPHILS ABSOLUTE AUTO 0.01 K/mm3 (0.00-0.68); EOSINOPHILS PERCENT AUTO 0 % (0-6); Hematocrit 38.5 % (33.0-51.0); Hemoglobin 10.9 g/dL (11.5-16.0); IMMATURE GRAN ABSOLUTE AUTO 0.05 K/mm3 (0.00-0.10); IMMATURE GRAN PERCENT AUTO 1 % (0-1); LYMPHOCYTES ABSOLUTE AUTO 0.72 K/mm3 (0.84-5.20); LYMPHOCYTES PERCENT AUTO 9 % (21-46); MONOCYTES PERCENT AUTO 4 % (4-13); Mean Corpuscular HGB 25.2 pg (26.0-34.0); Mean Corpuscular HGB Conc 28.3 g/dL (31.5-36.5); Mean Corpuscular Volume 89 fL (80-100); NEUTROPHILS ABSOLUTE AUTO 6.86 K/mm3 (1.96-9.15); NEUTROPHILS PERCENT AUTO 86 % (41-73); Platelet Count 120 K/mm3 (150-400); RDW Standard Deviation 48.7 fL (35.1-46.3); Red Blood Cell Count 4.33 M/mm3 (3.80-5.20); White Blood Cell Count 7.96 K/mm3 (4.00-11.30)
[2018-11-15 04:23] LABS: Mean Platelet Volume 13.9 fL (9.1-12.4)
[2018-11-15 04:34] LABS: International Normalized Ratio 2.19; Prothrombin Time Results 21.6 Sec (9.7-11.5)
[2018-11-15 04:38] LABS: Alanine Aminotransfer (ALT/SGP 16 U/L (12-78); Albumin, Blood 3.2 g/dL (3.4-5.0); Albumin/Globulin Ratio 0.9 (0.8-1.8); Alk Phos 64 U/L (50-136); Anion Gap 4 mmol/L (6-16); Aspartate Aminotrans (AST/SGOT 12 U/L (12-37); Bilirubin, Total 0.3 mg/dL (0.1-1.0); Blood Urea Nitrogen 68 mg/dL (8-24); Bun/Creatinine Ratio 45.3 (12.0-20.0); CO2, Blood 35 mmol/L (21-32); Calcium, Blood 9.5 mg/dL (8.5-10.1); Chloride, Blood 103 mmol/L (98-108); Globulin, Blood 3.7 g/dL (2.2-4.0); Glomerular Filtration Rate 35 (60-); Glucose, Blood 243 mg/dL (70-99); Potassium, Blood 4.7 mmol/L (3.5-5.5); Sodium, Blood 142 mmol/L (136-145); Total Protein, Blood 6.9 g/dL (6.4-8.2); Vancomycin, Random 16.5 ug/mL
--- NOTE | 2018-11-15 06:24 | NUR ---
SHIFT SUMMARY PT SLEEPING IN ROOM COMFORTBALY. NO ACUTE CHANGES IN STATUS T/O NIGHT. PT WORE CPAP TWICE OVERNIGHT FOR APROX 2HRS EACH. TOLERATED WELL. PT WOKE EASILY THIS AM FOR MEDS, AOX4. RESP EVEN UNLBOARED ON 2L NC W/ SATS >92%. PT REPORTS FEELING BETTER THIS AM. CALL MARY GRACE IN REACH.
--- NOTE | 2018-11-15 10:25 | NUR ---
AM NOTE PT UP IN CHAIR AT BEDSIDE. AFIB WITH CVRXimena GALDAMEZ. WE VISITED ABOUT HER HOME [place]. SHE STATED THAT SHE WAS LONELY. HER DAUGHTERS LIVE IN [place] AND THEY AREN'T RETURNING HER PHONE CALLS CURRENTLY. PT RELATED THAT SHE FEELS TIRED BUT RELATIVELY WELL. CONTINUE POT.
[2018-11-15 16:24] LABS: Vancomycin, Random 10.7 ug/mL
[2018-11-16 04:03] LABS: BASOPHILS ABSOLUTE AUTO 0.04 K/mm3 (0.00-0.23); BASOPHILS PERCENT AUTO 0 % (0-2); EOSINOPHILS ABSOLUTE AUTO 0.04 K/mm3 (0.00-0.68); EOSINOPHILS PERCENT AUTO 0 % (0-6); Hematocrit 37.6 % (33.0-51.0); Hemoglobin 10.9 g/dL (11.5-16.0); IMMATURE GRAN ABSOLUTE AUTO 0.04 K/mm3 (0.00-0.10); IMMATURE GRAN PERCENT AUTO 0 % (0-1); LYMPHOCYTES ABSOLUTE AUTO 0.93 K/mm3 (0.84-5.20); LYMPHOCYTES PERCENT AUTO 11 % (21-46); MONOCYTES PERCENT AUTO 6 % (4-13); Mean Corpuscular HGB 25.6 pg (26.0-34.0); Mean Corpuscular Volume 88 fL (80-100); NEUTROPHILS ABSOLUTE AUTO 7.34 K/mm3 (1.96-9.15); NEUTROPHILS PERCENT AUTO 83 % (41-73); Platelet Count 113 K/mm3 (150-400); RDW Coefficient Variation 14.9 % (11.7-14.2); RDW Standard Deviation 47.7 fL (35.1-46.3); Red Blood Cell Count 4.26 M/mm3 (3.80-5.20); White Blood Cell Count 8.89 K/mm3 (4.00-11.30)
[2018-11-16 04:14] LABS: International Normalized Ratio 2.51; Prothrombin Time Results 24.5 Sec (9.7-11.5)
[2018-11-16 04:24] LABS: Bun/Creatinine Ratio 50.4 (12.0-20.0); Calcium, Blood 9.5 mg/dL (8.5-10.1); Creatinine, Blood 1.31 mg/dL (0.40-1.00); Potassium, Blood 4.4 mmol/L (3.5-5.5)
--- NOTE | 2018-11-16 05:32 | NUR ---
SHIFT SUMMARY. WORE CPAP W/ 2L BLEED IN FOR APPROX 1 HR. REFUSING THE REST OF NOC. MENTATION USUALLY QUITE CLEAR. A LITTLE FORGETFUL. ESPECIALLY WHEN FIRST AWAKE. MILD LT KNEE PAIN AND AGREES TO TAKE PO MED FOR PAIN . COMFORTABLE ALL NOC AND SLEPT ALOT W/ 2L NC. SOME HS SNACKING AND FEEDS SELF. STAND BY ASSIST AND STEADY GAIT. ENC TO COUGH AND DEEP BREATHE AND GOOD EFFORT/ SR / SB/ BBB,PVC'S..
[2018-11-16] MEDS ORDERED: Glucagon Emergen1 MG (14:11)
[2018-11-16] MEDS ORDERED: GLUCAGEN1 MG/1 ML IM (14:12)
[2018-11-16] MEDS ORDERED: INSULANPEN SC ×2 (14:15→14:16)
[2018-11-16] MEDS ORDERED: ERGO400 PO (14:19)
[2018-11-16] MEDS ORDERED: CEPH500 PO (14:20)
[2018-11-16] MEDS ORDERED: ONDA4ODT MM (14:21)
[2018-11-16] MEDS ORDERED: AZIT500 PO (14:22)
[2018-11-16] MEDS ORDERED: PRED20 PO (14:25)
--- NOTE | 2018-11-16 15:17 | NUR ---
[facility] STAFF HAVE COME TO SEE PT. THEY HAVE AGGREED TO TAKE HER BACK. BRIANNA CORNELIUS NOTIFIED OF NEED FOR TRANSPORT BACK. COPY OF ORDERS SENT WITH [facility] STAFF. CONTINUE POT.
--- NOTE | 2018-11-16 16:34 | NUR ---
DISCHARGE HOME [facility]. PT VERY EXCITED AND APPRECIATIVE OF HER CARE. IV REMOVED WITH PRESSURE DRESSING APPLIED. DISCHARGE MEDIATIONS REVIEWED WITH HER. CONTINUE KAUR.
== END 2018-11-16 16:34 | disposition home health service (06) | DRG 193 ==
LOC: ER 12:07 → PCU 12:08
PROVIDERS: Emergency Medicine; Family Medicine; Nurse Practitioner Acute Care; ADMIT Hospitalist
DX: J18.9 Pneumonia, unspecified organism (principal); J96.01 Acute respiratory failure with hypoxia; I13.0 Hypertensive heart and chronic kidney disease with heart failure and stage 1 through stage 4 chronic kidney disease, or unspecified chronic kidney disease; I50.42 Chronic combined systolic (congestive) and diastolic (congestive) heart failure; N39.0 Urinary tract infection, site not specified; N17.9 Acute kidney failure, unspecified; E13.22 Other specified diabetes mellitus with diabetic chronic kidney disease; N18.3 Chronic kidney disease, stage 3 (moderate); G47.33 Obstructive sleep apnea (adult) (pediatric); J44.9 Chronic obstructive pulmonary disease, unspecified; F32.9 Major depressive disorder, single episode, unspecified; R53.81 Other malaise; I25.10 Atherosclerotic heart disease of native coronary artery without angina pectoris; B95.2 Enterococcus as the cause of diseases classified elsewhere; E03.9 Hypothyroidism, unspecified; E78.5 Hyperlipidemia, unspecified; H81.10 Benign paroxysmal vertigo, unspecified ear
CPT/HCPCS: 36415; 36600; 71045; 71046; 80048; 80053; 80069; 80162; 80202; 81001; 82550; 82803; 82947; 83880; 84145; 84443; 84484; 85025; 85027; 85379; 85610; 87077; 87086; 87186; 87486; 87581; 87633; 87798; 93005; 93010; 93306; 94660; 94760; 94762; 96374; 97110; 97162; 97530; 99285-25; G0378; J0360; J0456; J0696; J1940; J2405; J3370; J7050; J7512

== ENCOUNTER → 2019-02-25 | Outpatient (CLI) | payer OTHER ==
[~2019-02-25] MED LIST changes: +Bactrim Ds Tab1 EACH PO; +Glucagon Emergen1 MG; +HYDR1TAB94 PO; +LOSA25 PO; +MYRBETRIQ50 MG PO; +Miralax17 GM PO; +ONDA4ODT MM; +PRED20 PO; +ROPI.25 PO; +SPIR25 PO; +VITAMIN D3
[2019-02-25 16:20] LABS: Bilirubin, Urine Neg (Neg); Blood, Urine Neg (Neg); Glucose Qualitative, Urine Neg (Neg); Ketones, Urine Neg (Neg); Leukocyte Esterase, Urine 1+ (Neg); Nitrite, Urine Neg (Neg); Protein, Urine Neg (Neg); Specific Gravity, Urine 1.005 (1.003-1.022); Urobilinogen, Urine NORM (Normal)
[2019-02-25 16:34] LABS: Amorphous Mod ({null, 0-Heavy}); Appearance, Urine Clear (Clear); Calcium Oxalate Crystals Few /hpf; Color, Urine Yellow (P-Yellow)
[2019-02-25 16:35] LABS: Red Blood Cells, Urine 0-2 /hpf (0-2); White Blood Cells, Urine 0-2 /hpf (0-5)
[2019-02-25 16:36] LABS: Bacteria Few /hpf; Squamous Epithelial Cells Not Seen /hpf (Few)
== END | disposition home or self-care (01) ==
LOC: LAB SHORT 16:04 → LAB 16:04
PROVIDERS: Internal Medicine Hematology & Oncology
DX: N39.0 Urinary tract infection, site not specified (principal)
CPT/HCPCS: 81001; 87077; 87086; 87186

== ENCOUNTER 2019-04-13 11:18 | Emergency (ER) | payer OTHER ==
[~2019-04-13] VITALS: Ht 162.6 cm; Wt 104.3 kg
[~2019-04-13 11:18] MED LIST changes: -Bactrim Ds Tab1 EACH PO; -HYDR1TAB94 PO; -MYRBETRIQ50 MG PO; -Miralax17 GM PO; -SPIR25 PO; -VITAMIN D3
[2019-04-13 11:44] LABS: Source, Urine Catheter
[2019-04-13 11:49] LABS: Appearance, Urine Clear (Clear); Bilirubin, Urine Neg (Neg); Blood, Urine Neg (Neg); Color, Urine Yellow (P-Yellow); Glucose Qualitative, Urine Neg (Neg); Ketones, Urine Neg (Neg); Leukocyte Esterase, Urine 2+ (Neg); Nitrite, Urine Pos (Neg); Protein, Urine 1+ (Neg); Specific Gravity, Urine 1.015 (1.003-1.022); Urobilinogen, Urine NORM (Normal)
[2019-04-13] MEDS ORDERED: MYRBETRIQ50 MG PO (11:54)
[2019-04-13] MEDS ORDERED: SPIR25 PO (11:54)
[2019-04-13 11:55] LABS: BASOPHILS ABSOLUTE AUTO 0.04 K/mm3 (0.00-0.23); BASOPHILS PERCENT AUTO 1 % (0-2); EOSINOPHILS ABSOLUTE AUTO 0.13 K/mm3 (0.00-0.68); EOSINOPHILS PERCENT AUTO 2 % (0-6); Hemoglobin 11.4 g/dL (11.5-16.0); IMMATURE GRAN ABSOLUTE AUTO 0.02 K/mm3 (0.00-0.10); IMMATURE GRAN PERCENT AUTO 0 % (0-1); LYMPHOCYTES ABSOLUTE AUTO 1.07 K/mm3 (0.84-5.20); LYMPHOCYTES PERCENT AUTO 18 % (21-46); MONOCYTES ABSOLUTE AUTO 0.33 K/mm3 (0.16-1.47); MONOCYTES PERCENT AUTO 6 % (4-13); Mean Corpuscular HGB 26.8 pg (26.0-34.0); Mean Corpuscular HGB Conc 29.2 g/dL (31.5-36.5); Mean Corpuscular Volume 92 fL (80-100); NEUTROPHILS ABSOLUTE AUTO 4.23 K/mm3 (1.96-9.15); NEUTROPHILS PERCENT AUTO 73 % (41-73); Platelet Count 83 K/mm3 (150-400); RDW Coefficient Variation 15.5 % (11.7-14.2); RDW Standard Deviation 51.6 fL (35.1-46.3); Red Blood Cell Count 4.26 M/mm3 (3.80-5.20); White Blood Cell Count 5.82 K/mm3 (4.00-11.30)
[2019-04-13 12:03] LABS: Albumin, Blood 3.5 g/dL (3.4-5.0); Bilirubin, Total 0.3 mg/dL (0.1-1.0); Bun/Creatinine Ratio 57.3 (12.0-20.0); Calcium, Blood 9.3 mg/dL (8.5-10.1); Creatinine, Blood 1.64 mg/dL (0.40-1.00); Globulin, Blood 3.4 g/dL (2.2-4.0); Potassium, Blood 5.7 mmol/L (3.5-5.5); Total Protein, Blood 6.9 g/dL (6.4-8.2)
[2019-04-13 12:05] LABS: Bacteria Many /hpf; Red Blood Cells, Urine 0-2 /hpf (0-2); Squamous Epithelial Cells Few /hpf (Few)
[2019-04-13 12:39] LABS: Digoxin (Lanoxin) 1.02 ug/mL (0.80-2.00)
[2019-04-13] MEDS ORDERED: CEPH500 PO (14:14)
== END 2019-04-13 15:11 | disposition home or self-care (01) ==
LOC: ER 11:18
PROVIDERS: Emergency Medicine
DX: N39.0 Urinary tract infection, site not specified (principal); R11.2 Nausea with vomiting, unspecified; R19.7 Diarrhea, unspecified; R53.1 Weakness; E87.5 Hyperkalemia; Z88.0 Allergy status to penicillin; Z88.7 Allergy status to serum and vaccine; Z88.1 Allergy status to other antibiotic agents; Z88.8 Allergy status to other drugs, medicaments and biological substances; Z79.899 Other long term (current) drug therapy; Z79.01 Long term (current) use of anticoagulants; E11.40 Type 2 diabetes mellitus with diabetic neuropathy, unspecified; K21.9 Gastro-esophageal reflux disease without esophagitis; I48.91 Unspecified atrial fibrillation; I13.0 Hypertensive heart and chronic kidney disease with heart failure and stage 1 through stage 4 chronic kidney disease, or unspecified chronic kidney disease; I50.9 Heart failure, unspecified; N18.9 Chronic kidney disease, unspecified; E11.22 Type 2 diabetes mellitus with diabetic chronic kidney disease; Z87.891 Personal history of nicotine dependence
CPT/HCPCS: 36415; 71046; 80053; 80162; 81001; 85025; 85730; 87077; 87086; 87186; 93005; 93010; 96365; 96375; 99284-25; J0696; J1940; J7030; P9612

== ENCOUNTER 2019-04-28 13:45 | Emergency (ER) | payer OTHER ==
[~2019-04-28] VITALS: Ht 162.6 cm; Wt 104.3 kg
[~2019-04-28 13:45] MED LIST changes: +MYRBETRIQ50 MG PO; +SPIR25 PO
[2019-04-28] MEDS ORDERED: Bactrim Ds Tab1 EACH PO (14:03)
[2019-04-28] MEDS ORDERED: SPIR25 PO (14:12)
[2019-04-28] MEDS ORDERED: VITAMIN D3 (14:14)
[2019-04-28] MEDS ORDERED: Miralax17 GM PO (15:03)
[2019-04-28] MEDS ORDERED: HYDR1TAB94 PO (15:03)
== END 2019-04-28 16:05 | disposition home or self-care (01) ==
LOC: ER 13:45
DX: I87.2 Venous insufficiency (chronic) (peripheral) (principal); L97.829 Non-pressure chronic ulcer of other part of left lower leg with unspecified severity; S90.512A Abrasion, left ankle, initial encounter; L03.116 Cellulitis of left lower limb; I13.0 Hypertensive heart and chronic kidney disease with heart failure and stage 1 through stage 4 chronic kidney disease, or unspecified chronic kidney disease; E11.40 Type 2 diabetes mellitus with diabetic neuropathy, unspecified; E11.22 Type 2 diabetes mellitus with diabetic chronic kidney disease; N18.9 Chronic kidney disease, unspecified; I50.9 Heart failure, unspecified; E66.9 Obesity, unspecified; D64.9 Anemia, unspecified; I48.91 Unspecified atrial fibrillation; E03.9 Hypothyroidism, unspecified; M10.9 Gout, unspecified; G47.30 Sleep apnea, unspecified; Z87.891 Personal history of nicotine dependence; Z88.0 Allergy status to penicillin; Z88.1 Allergy status to other antibiotic agents; Z88.8 Allergy status to other drugs, medicaments and biological substances; Z79.01 Long term (current) use of anticoagulants; Z79.4 Long term (current) use of insulin; Z79.899 Other long term (current) drug therapy
CPT/HCPCS: 99283; A9270-GY

== ENCOUNTER 2019-05-03 07:31 | Day surgery (SDC) | payer OTHER ==
[~2019-05-03 07:31] MED LIST changes: +Bactrim Ds Tab1 EACH PO; +HYDR1TAB94 PO; +Miralax17 GM PO; +VITAMIN D3
== END 2019-05-03 23:07 | disposition home or self-care (01) ==
LOC: WOUND 07:31
DX: E11.622 Type 2 diabetes mellitus with other skin ulcer (principal); L97.329 Non-pressure chronic ulcer of left ankle with unspecified severity; L97.829 Non-pressure chronic ulcer of other part of left lower leg with unspecified severity; E11.621 Type 2 diabetes mellitus with foot ulcer; L97.529 Non-pressure chronic ulcer of other part of left foot with unspecified severity; J44.9 Chronic obstructive pulmonary disease, unspecified; G47.33 Obstructive sleep apnea (adult) (pediatric); E78.1 Pure hyperglyceridemia; I11.0 Hypertensive heart disease with heart failure; I50.22 Chronic systolic (congestive) heart failure; I87.2 Venous insufficiency (chronic) (peripheral); E11.40 Type 2 diabetes mellitus with diabetic neuropathy, unspecified
CPT/HCPCS: G0463

== ENCOUNTER 2019-05-10 00:25 | Day surgery (SDC) | payer OTHER | END 2019-05-10 23:07 | disposition home or self-care (01) | LOC: WOUND 00:25 | DX: E10.621 Type 1 diabetes mellitus with foot ulcer (principal); E10.622 Type 1 diabetes mellitus with other skin ulcer; L97.811 Non-pressure chronic ulcer of other part of right lower leg limited to breakdown of skin; L97.821 Non-pressure chronic ulcer of other part of left lower leg limited to breakdown of skin; L97.329 Non-pressure chronic ulcer of left ankle with unspecified severity; L97.529 Non-pressure chronic ulcer of other part of left foot with unspecified severity; I87.2 Venous insufficiency (chronic) (peripheral); I11.0 Hypertensive heart disease with heart failure; I50.22 Chronic systolic (congestive) heart failure; E10.40 Type 1 diabetes mellitus with diabetic neuropathy, unspecified ==

== ENCOUNTER 2019-05-17 10:08 | Day surgery (SDC) | payer OTHER | END 2019-05-17 22:48 | disposition home or self-care (01) | LOC: WOUND 10:08 | DX: E11.622 Type 2 diabetes mellitus with other skin ulcer (principal); L97.821 Non-pressure chronic ulcer of other part of left lower leg limited to breakdown of skin; L97.811 Non-pressure chronic ulcer of other part of right lower leg limited to breakdown of skin; I11.0 Hypertensive heart disease with heart failure; I50.22 Chronic systolic (congestive) heart failure; E78.1 Pure hyperglyceridemia; E03.9 Hypothyroidism, unspecified; M19.90 Unspecified osteoarthritis, unspecified site; J44.9 Chronic obstructive pulmonary disease, unspecified; I87.2 Venous insufficiency (chronic) (peripheral); E11.40 Type 2 diabetes mellitus with diabetic neuropathy, unspecified ==

== ENCOUNTER 2019-05-24 10:04 | Day surgery (SDC) | payer OTHER | END 2019-05-24 23:20 | disposition home or self-care (01) | LOC: WOUND 10:04 | DX: E11.622 Type 2 diabetes mellitus with other skin ulcer (principal); L97.811 Non-pressure chronic ulcer of other part of right lower leg limited to breakdown of skin; S81.802A Unspecified open wound, left lower leg, initial encounter; I87.2 Venous insufficiency (chronic) (peripheral); I11.0 Hypertensive heart disease with heart failure; I50.22 Chronic systolic (congestive) heart failure; E11.40 Type 2 diabetes mellitus with diabetic neuropathy, unspecified; J44.9 Chronic obstructive pulmonary disease, unspecified; G47.33 Obstructive sleep apnea (adult) (pediatric); I10 Essential (primary) hypertension; E78.1 Pure hyperglyceridemia; E03.9 Hypothyroidism, unspecified; M19.90 Unspecified osteoarthritis, unspecified site ==

== ENCOUNTER 2019-05-31 10:14 | Day surgery (SDC) | payer OTHER | END 2019-05-31 22:54 | disposition home or self-care (01) | LOC: WOUND 10:14 | DX: E11.622 Type 2 diabetes mellitus with other skin ulcer (principal); L97.811 Non-pressure chronic ulcer of other part of right lower leg limited to breakdown of skin; E11.621 Type 2 diabetes mellitus with foot ulcer; E11.40 Type 2 diabetes mellitus with diabetic neuropathy, unspecified; L97.329 Non-pressure chronic ulcer of left ankle with unspecified severity; I11.0 Hypertensive heart disease with heart failure; I50.22 Chronic systolic (congestive) heart failure; J44.9 Chronic obstructive pulmonary disease, unspecified; G47.33 Obstructive sleep apnea (adult) (pediatric); E03.9 Hypothyroidism, unspecified; E78.1 Pure hyperglyceridemia; I87.2 Venous insufficiency (chronic) (peripheral); Z79.4 Long term (current) use of insulin; Z79.899 Other long term (current) drug therapy; Z79.01 Long term (current) use of anticoagulants ==

== ENCOUNTER → 2019-06-04 | Outpatient (CLI) | payer OTHER ==
[2019-06-04 20:04] LABS: Creatinine Urine 36.7 mg/dL (27.00-270.00); Protein, Urine Quantitative 11.4 mg/dL (0.0-11.9)
[2019-06-04 20:07] LABS: Microalbumin, Urine Quant. 54.5 mg/L (0.000-20.000)
== END | disposition home or self-care (01) ==
LOC: LAB 17:36 → LAB SHORT 17:36
PROVIDERS: Internal Medicine Nephrology
DX: N18.3 Chronic kidney disease, stage 3 (moderate) (principal); D63.1 Anemia in chronic kidney disease; N25.81 Secondary hyperparathyroidism of renal origin; E55.9 Vitamin D deficiency, unspecified; E78.00 Pure hypercholesterolemia, unspecified; R76.9 Abnormal immunological finding in serum, unspecified; R94.5 Abnormal results of liver function studies; R94.6 Abnormal results of thyroid function studies
CPT/HCPCS: 81050; 82043; 82570; 84156

== ENCOUNTER 2019-06-07 00:26 | Day surgery (SDC) | payer OTHER | END 2019-06-07 22:45 | disposition home or self-care (01) | LOC: WOUND 00:26 | DX: E11.622 Type 2 diabetes mellitus with other skin ulcer (principal); L97.811 Non-pressure chronic ulcer of other part of right lower leg limited to breakdown of skin; I87.2 Venous insufficiency (chronic) (peripheral); I11.0 Hypertensive heart disease with heart failure; I50.22 Chronic systolic (congestive) heart failure; E11.40 Type 2 diabetes mellitus with diabetic neuropathy, unspecified; J44.9 Chronic obstructive pulmonary disease, unspecified; G47.33 Obstructive sleep apnea (adult) (pediatric); E03.9 Hypothyroidism, unspecified; E78.1 Pure hyperglyceridemia; Z79.4 Long term (current) use of insulin; Z79.01 Long term (current) use of anticoagulants; Z79.899 Other long term (current) drug therapy ==

== ENCOUNTER 2019-06-17 08:32 | Day surgery (SDC) | payer OTHER ==
[2019-07-01] MEDS ORDERED: LEVSOD100 PO (09:45)
[2019-07-01] MEDS ORDERED: Glucagon Emergen1 MG IM (09:47)
[2019-07-01] MEDS ORDERED: POTCHL20ER PO (09:48)
== END 2019-06-17 23:13 | disposition home or self-care (01) ==
LOC: WOUND 08:32
DX: E10.622 Type 1 diabetes mellitus with other skin ulcer (principal); L97.811 Non-pressure chronic ulcer of other part of right lower leg limited to breakdown of skin; L97.821 Non-pressure chronic ulcer of other part of left lower leg limited to breakdown of skin; I87.2 Venous insufficiency (chronic) (peripheral); I13.2 Hypertensive heart and chronic kidney disease with heart failure and with stage 5 chronic kidney disease, or end stage renal disease; E10.22 Type 1 diabetes mellitus with diabetic chronic kidney disease; N18.6 End stage renal disease; I50.9 Heart failure, unspecified; D63.1 Anemia in chronic kidney disease; J44.9 Chronic obstructive pulmonary disease, unspecified; G47.33 Obstructive sleep apnea (adult) (pediatric); E03.9 Hypothyroidism, unspecified; M19.90 Unspecified osteoarthritis, unspecified site; I48.91 Unspecified atrial fibrillation; E78.1 Pure hyperglyceridemia; E10.40 Type 1 diabetes mellitus with diabetic neuropathy, unspecified; M06.9 Rheumatoid arthritis, unspecified; Z79.4 Long term (current) use of insulin; Z79.01 Long term (current) use of anticoagulants; Z79.899 Other long term (current) drug therapy; Z88.0 Allergy status to penicillin; Z88.1 Allergy status to other antibiotic agents; Z88.7 Allergy status to serum and vaccine; Z88.8 Allergy status to other drugs, medicaments and biological substances

== ENCOUNTER 2019-06-21 10:02 | Day surgery (SDC) | payer OTHER | END 2019-06-21 22:41 | disposition home or self-care (01) | LOC: WOUND 10:02 | DX: E11.622 Type 2 diabetes mellitus with other skin ulcer (principal); J44.9 Chronic obstructive pulmonary disease, unspecified; E11.40 Type 2 diabetes mellitus with diabetic neuropathy, unspecified; I11.0 Hypertensive heart disease with heart failure; G47.33 Obstructive sleep apnea (adult) (pediatric); E03.9 Hypothyroidism, unspecified; L97.811 Non-pressure chronic ulcer of other part of right lower leg limited to breakdown of skin; S80.822D Blister (nonthermal), left lower leg, subsequent encounter; I87.2 Venous insufficiency (chronic) (peripheral); I50.22 Chronic systolic (congestive) heart failure; Z79.4 Long term (current) use of insulin; Z79.01 Long term (current) use of anticoagulants; Z79.899 Other long term (current) drug therapy ==

== ENCOUNTER 2019-06-28 00:16 | Day surgery (SDC) | payer OTHER ==
[2019-07-01] MEDS ORDERED: LEVSOD100 PO (09:45)
[2019-07-01] MEDS ORDERED: Glucagon Emergen1 MG IM (09:47)
[2019-07-01] MEDS ORDERED: POTCHL20ER PO (09:48)
== END 2019-06-28 22:54 | disposition home or self-care (01) ==
LOC: WOUND 00:16
DX: E11.622 Type 2 diabetes mellitus with other skin ulcer (principal); L97.811 Non-pressure chronic ulcer of other part of right lower leg limited to breakdown of skin; L97.821 Non-pressure chronic ulcer of other part of left lower leg limited to breakdown of skin; E11.40 Type 2 diabetes mellitus with diabetic neuropathy, unspecified; I11.0 Hypertensive heart disease with heart failure; I50.22 Chronic systolic (congestive) heart failure; I87.2 Venous insufficiency (chronic) (peripheral); E78.1 Pure hyperglyceridemia; E03.9 Hypothyroidism, unspecified; M19.90 Unspecified osteoarthritis, unspecified site; J44.9 Chronic obstructive pulmonary disease, unspecified; G47.33 Obstructive sleep apnea (adult) (pediatric); Z79.4 Long term (current) use of insulin; Z79.899 Other long term (current) drug therapy; Z79.01 Long term (current) use of anticoagulants

== ENCOUNTER 2019-07-05 10:16 | Day surgery (SDC) | payer OTHER ==
[~2019-07-05 10:16] MED LIST changes: +Glucagon Emergen1 MG IM
== END 2019-07-05 23:13 | disposition home or self-care (01) ==
LOC: WOUND 10:16
DX: E11.622 Type 2 diabetes mellitus with other skin ulcer (principal); L97.821 Non-pressure chronic ulcer of other part of left lower leg limited to breakdown of skin; L97.811 Non-pressure chronic ulcer of other part of right lower leg limited to breakdown of skin; I11.0 Hypertensive heart disease with heart failure; I50.22 Chronic systolic (congestive) heart failure; E03.9 Hypothyroidism, unspecified; J44.9 Chronic obstructive pulmonary disease, unspecified; G47.33 Obstructive sleep apnea (adult) (pediatric); M19.90 Unspecified osteoarthritis, unspecified site; I87.2 Venous insufficiency (chronic) (peripheral); E11.40 Type 2 diabetes mellitus with diabetic neuropathy, unspecified; Z79.899 Other long term (current) drug therapy; Z79.4 Long term (current) use of insulin

== ENCOUNTER 2019-07-07 09:00 | Day surgery (SDC) | payer OTHER ==
[~2019-07-07] VITALS: Ht 162.6 cm; Wt 104.2 kg
== END 2019-07-07 12:13 | disposition home or self-care (01) ==
LOC: ORSCSDS 09:00
PROVIDERS: Ophthalmology
PROC: 08RK3JZ Replacement of Left Lens with Synthetic Substitute, Percutaneous Approach (ICD-10-PCS; principal; 2019-07-07 10:00)
DX: H25.12 Age-related nuclear cataract, left eye (principal); I48.91 Unspecified atrial fibrillation; Z79.01 Long term (current) use of anticoagulants; I12.9 Hypertensive chronic kidney disease with stage 1 through stage 4 chronic kidney disease, or unspecified chronic kidney disease; E11.22 Type 2 diabetes mellitus with diabetic chronic kidney disease; N18.9 Chronic kidney disease, unspecified; J44.9 Chronic obstructive pulmonary disease, unspecified; I50.9 Heart failure, unspecified; E66.01 Morbid (severe) obesity due to excess calories; Z68.39 Body mass index [BMI] 39.0-39.9, adult; Z79.899 Other long term (current) drug therapy
CPT/HCPCS: 82947; J2001; J2250; J3010; J3301; J7120; V2632

== ENCOUNTER 2019-07-12 10:12 | Day surgery (SDC) | payer OTHER | END 2019-07-12 23:03 | disposition home or self-care (01) | LOC: WOUND 10:12 | DX: E11.622 Type 2 diabetes mellitus with other skin ulcer (principal); L97.821 Non-pressure chronic ulcer of other part of left lower leg limited to breakdown of skin; J44.9 Chronic obstructive pulmonary disease, unspecified; E11.40 Type 2 diabetes mellitus with diabetic neuropathy, unspecified; E03.9 Hypothyroidism, unspecified; I11.0 Hypertensive heart disease with heart failure; I50.22 Chronic systolic (congestive) heart failure; E78.1 Pure hyperglyceridemia; I87.2 Venous insufficiency (chronic) (peripheral); Z79.4 Long term (current) use of insulin; Z79.899 Other long term (current) drug therapy | CPT/HCPCS: G0463 ==

== ENCOUNTER → 2019-08-13 | Outpatient (CLI) | payer OTHER ==
[2019-08-13 11:11] LABS: BASOPHILS ABSOLUTE AUTO 0.04 K/mm3 (0.00-0.23); BASOPHILS PERCENT AUTO 1 % (0-2); EOSINOPHILS ABSOLUTE AUTO 0.51 K/mm3 (0.00-0.68); EOSINOPHILS PERCENT AUTO 10 % (0-6); Hematocrit 40.2 % (33.0-51.0); Hemoglobin 11.7 g/dL (11.5-16.0); IMMATURE GRAN ABSOLUTE AUTO 0.01 K/mm3 (0.00-0.10); IMMATURE GRAN PERCENT AUTO 0 % (0-1); LYMPHOCYTES ABSOLUTE AUTO 0.95 K/mm3 (0.84-5.20); LYMPHOCYTES PERCENT AUTO 19 % (21-46); MONOCYTES PERCENT AUTO 6 % (4-13); Mean Corpuscular HGB 25.8 pg (26.0-34.0); Mean Corpuscular HGB Conc 29.1 g/dL (31.5-36.5); Mean Corpuscular Volume 89 fL (80-100); NEUTROPHILS ABSOLUTE AUTO 3.17 K/mm3 (1.96-9.15); NEUTROPHILS PERCENT AUTO 64 % (41-73); Platelet Count 120 K/mm3 (150-400); RDW Coefficient Variation 15.8 % (11.7-14.2); RDW Standard Deviation 51.1 fL (35.1-46.3); Red Blood Cell Count 4.54 M/mm3 (3.80-5.20); White Blood Cell Count 4.98 K/mm3 (4.00-11.30)
[2019-08-13 11:17] LABS: Albumin, Blood 3.7 g/dL (3.4-5.0); Albumin/Globulin Ratio 1.1 (0.8-1.8); Bilirubin, Total 0.3 mg/dL (0.1-1.0); Bun/Creatinine Ratio 45.9 (12.0-20.0); Calcium, Blood 9.6 mg/dL (8.5-10.1); Creatinine, Blood 1.59 mg/dL (0.40-1.00); Globulin, Blood 3.3 g/dL (2.2-4.0)
[2019-08-13 11:48] LABS: International Normalized Ratio 2.99; Prothrombin Time Results 28.7 Sec (9.7-11.5)
== END | disposition home or self-care (01) ==
LOC: LAB SHORT 11:02 → LAB EV 11:02
PROVIDERS: General Practice
DX: E11.49 Type 2 diabetes mellitus with other diabetic neurological complication (principal); I82.409 Acute embolism and thrombosis of unspecified deep veins of unspecified lower extremity
CPT/HCPCS: 80053; 85025; 85379; 85610

== ENCOUNTER 2019-08-31 03:15 | Emergency (ER) | payer OTHER ==
[~2019-08-31] VITALS: Ht 167.6 cm; Wt 152.9 kg
[2019-08-31 03:57] LABS: International Normalized Ratio 2.38; Prothrombin Time Results 24.2 Sec (9.7-11.5)
== END 2019-08-31 04:41 | disposition home or self-care (01) ==
LOC: ER 03:15
PROVIDERS: Emergency Medicine
DX: R04.0 Epistaxis (principal); I13.0 Hypertensive heart and chronic kidney disease with heart failure and stage 1 through stage 4 chronic kidney disease, or unspecified chronic kidney disease; I50.9 Heart failure, unspecified; N18.9 Chronic kidney disease, unspecified; E11.40 Type 2 diabetes mellitus with diabetic neuropathy, unspecified; E11.22 Type 2 diabetes mellitus with diabetic chronic kidney disease; M10.9 Gout, unspecified; K21.9 Gastro-esophageal reflux disease without esophagitis; I48.91 Unspecified atrial fibrillation; D64.9 Anemia, unspecified; G47.30 Sleep apnea, unspecified; Z87.891 Personal history of nicotine dependence; Z88.0 Allergy status to penicillin; Z88.1 Allergy status to other antibiotic agents; Z88.8 Allergy status to other drugs, medicaments and biological substances; Z88.7 Allergy status to serum and vaccine; Z79.01 Long term (current) use of anticoagulants; Z79.899 Other long term (current) drug therapy; Z79.4 Long term (current) use of insulin
CPT/HCPCS: 85610; 99283

== ENCOUNTER → 2019-09-14 | Outpatient (CLI) | payer OTHER ==
[~2019-09-14] MED LIST changes: +AMLO5 PO; +Coumadin5 MG PO; +Doxycycline Mo100 M1 PO; +EUTHYROX112 MCG PO; +LOKELMA10 GM PO; +Mupirocin22 GM TOP; +NOVOLOG100 UNIT/1; +THERA-D2000 UNIT PO; +Ventolin/Prove6.7 GM INH; +Vibramycin100 MG PO
== END | disposition home or self-care (01) ==
LOC: LAB SHORT 13:30 → LAB EV 13:30
DX: L97.929 Non-pressure chronic ulcer of unspecified part of left lower leg with unspecified severity (principal)
CPT/HCPCS: 87070; 87077; 87147; 87186; 87205

== ENCOUNTER 2019-09-23 10:37 | Emergency (ER) | payer OTHER ==
[~2019-09-23] VITALS: Ht 162.6 cm; Wt 113.8 kg
[2019-09-23 12:21] LABS: BASOPHILS ABSOLUTE AUTO 0.04 K/mm3 (0.00-0.23); BASOPHILS PERCENT AUTO 1 % (0-2); EOSINOPHILS ABSOLUTE AUTO 0.14 K/mm3 (0.00-0.68); EOSINOPHILS PERCENT AUTO 3 % (0-6); Hematocrit 31.6 % (33.0-51.0); Hemoglobin 8.8 g/dL (11.5-16.0); IMMATURE GRAN ABSOLUTE AUTO 0.07 K/mm3 (0.00-0.10); IMMATURE GRAN PERCENT AUTO 1 % (0-1); LYMPHOCYTES ABSOLUTE AUTO 0.95 K/mm3 (0.84-5.20); LYMPHOCYTES PERCENT AUTO 17 % (21-46); MONOCYTES ABSOLUTE AUTO 0.46 K/mm3 (0.16-1.47); MONOCYTES PERCENT AUTO 8 % (4-13); Mean Corpuscular HGB 24.2 pg (26.0-34.0); Mean Corpuscular HGB Conc 27.8 g/dL (31.5-36.5); Mean Corpuscular Volume 87 fL (80-100); NEUTROPHILS ABSOLUTE AUTO 3.84 K/mm3 (1.96-9.15); NEUTROPHILS PERCENT AUTO 70 % (41-73); Platelet Count 111 K/mm3 (150-400); RDW Coefficient Variation 16.2 % (11.7-14.2); RDW Standard Deviation 51.8 fL (35.1-46.3); Red Blood Cell Count 3.64 M/mm3 (3.80-5.20)
[2019-09-23 12:35] LABS: Albumin, Blood 2.8 g/dL (3.4-5.0); Albumin/Globulin Ratio 0.8 (0.8-1.8); Bilirubin, Total 0.6 mg/dL (0.1-1.0); Bun/Creatinine Ratio 47.2 (12.0-20.0); Creatinine, Blood 1.95 mg/dL (0.40-1.00); Globulin, Blood 3.3 g/dL (2.2-4.0); Potassium, Blood 4.2 mmol/L (3.5-5.5); Total Protein, Blood 6.1 g/dL (6.4-8.2); Troponin I 0.074 ng/mL (0.000-0.040)
[2019-09-23 13:11] LABS: International Normalized Ratio 3.67; Prothrombin Time Results 36.5 Sec (9.7-11.5)
[2019-09-23 13:20] LABS: Digoxin (Lanoxin) 1.04 ug/mL (0.80-2.00)
[2019-09-27] MEDS ORDERED: WARF5 PO (15:16)
== END 2019-09-23 19:13 | disposition home or self-care (01) ==
LOC: ER 10:37
PROVIDERS: Emergency Medicine
DX: I13.0 Hypertensive heart and chronic kidney disease with heart failure and stage 1 through stage 4 chronic kidney disease, or unspecified chronic kidney disease (principal); N18.9 Chronic kidney disease, unspecified; I50.9 Heart failure, unspecified; R79.1 Abnormal coagulation profile; I45.3 Trifascicular block; M79.81 Nontraumatic hematoma of soft tissue; E11.22 Type 2 diabetes mellitus with diabetic chronic kidney disease; E11.40 Type 2 diabetes mellitus with diabetic neuropathy, unspecified; I48.91 Unspecified atrial fibrillation; I95.9 Hypotension, unspecified; M10.9 Gout, unspecified; Z88.0 Allergy status to penicillin; Z88.1 Allergy status to other antibiotic agents; Z88.8 Allergy status to other drugs, medicaments and biological substances; Z79.01 Long term (current) use of anticoagulants; Z79.899 Other long term (current) drug therapy; Z79.4 Long term (current) use of insulin
CPT/HCPCS: 36415; 71046; 80053; 80162; 83880; 84484; 85025; 85610; 93005; 93010; 99284-25

== ENCOUNTER 2019-09-27 07:43 | Inpatient (IN) | payer OTHER ==
[~2019-09-27] VITALS: Ht 162.6 cm; Wt 121.4 kg
[~2019-09-27 07:43] MED LIST changes: +HUMALOG KW200 UNIT/1 SC; -NOVOLOG100 UNIT/1
[2019-09-27 08:29] LABS: BASOPHILS ABSOLUTE AUTO 0.03 K/mm3 (0.00-0.23); BASOPHILS PERCENT AUTO 1 % (0-2); EOSINOPHILS ABSOLUTE AUTO 0.13 K/mm3 (0.00-0.68); EOSINOPHILS PERCENT AUTO 3 % (0-6); Hematocrit 30.8 % (33.0-51.0); Hemoglobin 8.5 g/dL (11.5-16.0); IMMATURE GRAN ABSOLUTE AUTO 0.06 K/mm3 (0.00-0.10); IMMATURE GRAN PERCENT AUTO 1 % (0-1); LYMPHOCYTES ABSOLUTE AUTO 1.13 K/mm3 (0.84-5.20); LYMPHOCYTES PERCENT AUTO 24 % (21-46); MONOCYTES ABSOLUTE AUTO 0.52 K/mm3 (0.16-1.47); MONOCYTES PERCENT AUTO 11 % (4-13); Mean Corpuscular HGB 23.8 pg (26.0-34.0); Mean Corpuscular HGB Conc 27.6 g/dL (31.5-36.5); Mean Corpuscular Volume 86 fL (80-100); NEUTROPHILS ABSOLUTE AUTO 2.88 K/mm3 (1.96-9.15); NEUTROPHILS PERCENT AUTO 61 % (41-73); Platelet Count 104 K/mm3 (150-400); RDW Coefficient Variation 16.6 % (11.7-14.2); RDW Standard Deviation 52.2 fL (35.1-46.3); Red Blood Cell Count 3.57 M/mm3 (3.80-5.20); White Blood Cell Count 4.75 K/mm3 (4.00-11.30)
[2019-09-27 08:40] LABS: Albumin, Blood 2.9 g/dL (3.4-5.0); Albumin/Globulin Ratio 0.9 (0.8-1.8); Bilirubin, Total 0.5 mg/dL (0.1-1.0); Bun/Creatinine Ratio 32.7 (12.0-20.0); Calcium, Blood 8.6 mg/dL (8.5-10.1); Creatinine, Blood 4.07 mg/dL (0.40-1.00); Globulin, Blood 3.2 g/dL (2.2-4.0); Potassium, Blood 5.4 mmol/L (3.5-5.5); Total Protein, Blood 6.1 g/dL (6.4-8.2)
[2019-09-27 08:48] LABS: Prothrombin Time Results 46.9 Sec (9.7-11.5)
[2019-09-27 08:54] LABS: International Normalized Ratio 4.79
[2019-09-27 10:25] LABS: Magnesium, Blood 2.3 mg/dL (1.6-2.4); Phosphorus, Blood 6.9 mg/dL (2.5-4.9)
[2019-09-27] MEDS ORDERED: FURO80 PO (12:16)
[2019-09-27 13:17] LABS: Source, Urine Catheter
[2019-09-27 13:21] LABS: Blood, Urine 5+ (Neg); Glucose Qualitative, Urine Neg (Neg); Ketones, Urine 1+ (Neg); Leukocyte Esterase, Urine 2+ (Neg); Nitrite, Urine Pos (Neg); Protein, Urine 3+ (Neg); Urobilinogen, Urine 1+ (Normal)
[2019-09-27 13:31] LABS: Bilirubin, Urine 2+ (Neg)
[2019-09-27 13:32] LABS: Appearance, Urine Cloudy (Clear); Color, Urine Amber (P-Yellow)
[2019-09-27 13:34] LABS: Bacteria Mod /hpf; Red Blood Cells, Urine TNTC /hpf (0-2); Squamous Epithelial Cells Few /hpf (Few)
[2019-09-27] MEDS ORDERED: Anti-Diarrheal2 MG PO (15:10)
[2019-09-27] MEDS ORDERED: LEVSOD112 PO (15:12)
[2019-09-27] MEDS ORDERED: THERA-D2000 UNIT PO (15:15)
[2019-09-27] MEDS ORDERED: WARF2.5 PO (15:16)
[2019-09-27] MEDS ORDERED: TYLENOL325 M1 PO (15:16)
[2019-09-27] MEDS ORDERED: MECL12.5 PO (15:17)
[2019-09-27] MEDS ORDERED: LOKELMA10 GM PO (15:17)
--- NOTE | 2019-09-27 15:18 | NUR ---
This patient gives this nursing information systems coordinator permission to help in her care on 09/28/2019.
[2019-09-27] MEDS ORDERED: MIRALAX17 GM PO (15:19)
[2019-09-27] MEDS ORDERED: Mupirocin22 GM TOP (15:20)
[2019-09-27] MEDS ORDERED: MYRBETRIQ50 MG PO (15:20)
[2019-09-27 17:32] LABS: Bun/Creatinine Ratio 30.4 (12.0-20.0); Calcium, Blood 8.5 mg/dL (8.5-10.1); Creatinine, Blood 4.31 mg/dL (0.40-1.00); Potassium, Blood 5.6 mmol/L (3.5-5.5)
--- NOTE | 2019-09-27 17:55 | NUR ---
SHIFT SUMMARY PT IS A NEW ADMISSION THIS AFTERNOON. PT HAS BEEN DROWSY BUT AWAKENS EASILY. MEDICATED FOR PAIN IN BILATERAL KNEES WITH TYLENOL. PT REPORTS SHE HAS CHRONIC PAIN IN BILATERAL KNEES. IVF INFUSING WITHOUT DIFFICULTY. PT HAS GOOD APPETITE AND EATING DINNER AT THIS TIME. NO ACUTE CHANGES. WILL CONTINUE TO MONITOR AND REPORT TO ONCOMING RN.
[2019-09-27 22:46] LABS: Bun/Creatinine Ratio 27.5 (12.0-20.0); Calcium, Blood 8.1 mg/dL (8.5-10.1); Creatinine, Blood 4.65 mg/dL (0.40-1.00); Potassium, Blood 5.8 mmol/L (3.5-5.5)
--- NOTE | 2019-09-28 00:26 | NUR ---
PHYSICIAN COMMUNICATION *LATE ENTRY* HOSPITALIST PARKER Andino, CALLED & ASKED FOR FLUIDS TO BE DC'D & TO GIVE A OT DOSE OF 40 MG IV LASIX. STATED DR GOFF WOULD BE IN TO SEE PT THIS LEONA. SINCE RECIEVING THESE ORDERS DR GOFF HAS COME TO SEE PT & ORDERED A CPK LAB TO BE DRAWN IN AM. WCTM.
[2019-09-28 05:37] LABS: BASOPHILS ABSOLUTE AUTO 0.03 K/mm3 (0.00-0.23); BASOPHILS PERCENT AUTO 1 % (0-2); EOSINOPHILS PERCENT AUTO 2 % (0-6); Hematocrit 31.6 % (33.0-51.0); Hemoglobin 8.6 g/dL (11.5-16.0); IMMATURE GRAN ABSOLUTE AUTO 0.03 K/mm3 (0.00-0.10); IMMATURE GRAN PERCENT AUTO 1 % (0-1); LYMPHOCYTES ABSOLUTE AUTO 1.08 K/mm3 (0.84-5.20); LYMPHOCYTES PERCENT AUTO 25 % (21-46); MONOCYTES ABSOLUTE AUTO 0.47 K/mm3 (0.16-1.47); MONOCYTES PERCENT AUTO 11 % (4-13); Mean Corpuscular HGB 23.7 pg (26.0-34.0); Mean Corpuscular HGB Conc 27.2 g/dL (31.5-36.5); Mean Corpuscular Volume 87 fL (80-100); NEUTROPHILS ABSOLUTE AUTO 2.69 K/mm3 (1.96-9.15); NEUTROPHILS PERCENT AUTO 61 % (41-73); NRBC ABSOLUTE 0.02 K/mm3 (0.00-0.02); NRBC Auto 0.5 /100 WBC (0.0-0.2); Platelet Count 112 K/mm3 (150-400); RDW Coefficient Variation 16.8 % (11.7-14.2); RDW Standard Deviation 52.7 fL (35.1-46.3); Red Blood Cell Count 3.63 M/mm3 (3.80-5.20)
[2019-09-28 05:59] LABS: Prothrombin Time Results 56.7 Sec (9.7-11.5)
[2019-09-28 06:02] LABS: Alanine Aminotransfer (ALT/SGP 13 U/L (12-78); Albumin, Blood 2.6 g/dL (3.4-5.0); Albumin/Globulin Ratio 0.8 (0.8-1.8); Alk Phos 66 U/L (50-136); Anion Gap 9 mmol/L (6-16); Aspartate Aminotrans (AST/SGOT 17 U/L (12-37); Bilirubin, Total 0.5 mg/dL (0.1-1.0); Blood Urea Nitrogen 128 mg/dL (8-24); Bun/Creatinine Ratio 26.1 (12.0-20.0); CO2, Blood 26 mmol/L (21-32); Calcium, Blood 8.3 mg/dL (8.5-10.1); Chloride, Blood 104 mmol/L (98-108); Globulin, Blood 3.4 g/dL (2.2-4.0); Glomerular Filtration Rate 9 (60-); Glucose, Blood 154 mg/dL (70-99); Magnesium, Blood 2.3 mg/dL (1.6-2.4); Phosphorus, Blood 7.8 mg/dL (2.5-4.9); Potassium, Blood 5.7 mmol/L (3.5-5.5); Sodium, Blood 139 mmol/L (136-145)
[2019-09-28 06:11] LABS: International Normalized Ratio 5.86
--- NOTE | 2019-09-28 06:40 | NUR ---
SHIFT SUMMARY AOX4. VSS. DENIES N/V OR DYSPNEA. REPORTS MILD PAIN IN KNEES & STATES RELIEF FROM TYLENOL. TELE AFIB W/HR 60'S. ON 2L O2 W/SPO2 >90%, E/U RESPIRATIONS. JOHN IS PATENT, HAD 200ML OF DARK TEA COLORED URINE. NOTIFIED @06 OF CRITICAL INR @5.86 INCREASED FROM YESTERDAYS INR, NOTIFIED CHARGE NURSE & PHARMACY, NO CHANGE IN PTS CONDITION. REPOSITIONED PRN. CALL LIGHT IN REACH.
--- NOTE | 2019-09-28 15:24 | NUR ---
Spiritual care visit conducted. Patient is sitting up in bed and eating lunch. Patient shares about her life beginning at an early age up to current times. Details and names started out more clear for patient and got a little hazy as she got to more recent years. Patient did say that she fears having to be away from her friends at [employer]. Patient shared about some aweful events and people from her younger years. I explore patient's scientology beliefs which led to some new realizations for patient. I listen empathically, conducted a life review, highlighted patient's ability to survive, adapt and overcome and provided spiritual guidance and prayer. Patient responds well and displays evidence of an elevated mood. Patient voices gratitude for the visit.
--- NOTE | 2019-09-28 17:56 | NUR ---
PT HAS HAD NO ACUTE CHANGES THIS SHIFT. SLEPT MOST OF THE DAY. APPEARS CONFUSED AT TIMES, OFTEN FORGETTING SHE HAS A LOPEZ. PT HAS REMAINED IN BED . CALL LIGHT WITHIN REACH.
[2019-09-28 21:03] LABS: Albumin, Blood 2.8 g/dL (3.4-5.0); Anion Gap 5 mmol/L (6-16); Blood Urea Nitrogen 139 mg/dL (8-24); Bun/Creatinine Ratio 26.3 (12.0-20.0); CO2, Blood 25 mmol/L (21-32); Calcium, Blood 8.5 mg/dL (8.5-10.1); Chloride, Blood 102 mmol/L (98-108); Creatinine, Blood 5.28 mg/dL (0.40-1.00); Glomerular Filtration Rate 8 (60-); Glucose, Blood 112 mg/dL (70-99); Phosphorus, Blood 8.6 mg/dL (2.5-4.9); Potassium, Blood 6.1 mmol/L (3.5-5.5); Sodium, Blood 132 mmol/L (136-145)
--- NOTE | 2019-09-29 00:33 | NUR ---
Critical lab values called to Dr. Soto, K+ of 6.1 and Phos 8.6. New orders received and read back. Pt nurse aware of Lab values. Meds given as directed.
--- NOTE | 2019-09-29 00:56 | NUR ---
CRITICAL K & PHOS *LATE ENTRY* AROUND 2099 I WAS NOTIFIED BY LAB OF A CRITICAL K @6.1 & PHOS @8.6. INFORMED CHARGE NURSE ARMANDO WILSON & SHE CALLED DR GOFF. [facility] PT.
--- NOTE | 2019-09-29 01:01 | NUR ---
PHYSICIAN COMMUNICATION *LATE ENTRY* AROUND 2129, DR GOFF CALLED PTS ROOM TO DISCUSS STARTING DIALYSIS, PT WAS IN AGREEMENT, STATED SHE UNDERSTOOD WHAT DR. GOFF WAS TALKING ABOUT. DR. GOFF THEN INSTRUCTED PT TO BE NPO & TO CONSULT DR PARKER FOR PERMACATH PLACEMENT IN THE MORNING SO PT CAN HAVE DIALYSIS TOMORROW. WCTM PT.
--- NOTE | 2019-09-29 01:24 | NUR ---
HELD LEONA BEVERLY *LATE ENTRY* CBG AROUND 1999 WAS 112, HELD 20U [place] SINCE PT HAS NOT BEEN EATING MUCH & IS TO BE NPO FOR POSSIBLE PROCEDURE TOMORROW. INFORMED DR. BARRERA @5430 & HE STATED THAT WAS OKAY. TM.
[2019-09-29 05:39] LABS: Hematocrit 32.1 % (33.0-51.0)
[2019-09-29 06:02] LABS: Prothrombin Time Results 59.7 Sec (9.7-11.5)
[2019-09-29 06:08] LABS: Magnesium, Blood 2.5 mg/dL (1.6-2.4)
[2019-09-29 06:16] LABS: Albumin, Blood 2.7 g/dL (3.4-5.0); Anion Gap 9 mmol/L (6-16); Blood Urea Nitrogen 138 mg/dL (8-24); Bun/Creatinine Ratio 24.4 (12.0-20.0); CO2, Blood 26 mmol/L (21-32); Calcium, Blood 8.6 mg/dL (8.5-10.1); Chloride, Blood 102 mmol/L (98-108); Creatinine, Blood 5.66 mg/dL (0.40-1.00); Glomerular Filtration Rate 8 (60-); Glucose, Blood 82 mg/dL (70-99); Sodium, Blood 137 mmol/L (136-145)
[2019-09-29 06:20] LABS: International Normalized Ratio 6.19; Phosphorus, Blood 8.6 mg/dL (2.5-4.9); Potassium, Blood 6.4 mmol/L (3.5-5.5)
--- NOTE | 2019-09-29 07:28 | NUR ---
SHIFT SUMMARY AOX3, FORGETFUL @TIMES. HAS BEEN VERY DROWSY T/O NIGHT, WAKES TO ANSWER QUESTIONS BUT THEN FALLS ASLEEP. FOLLOWS DIRECTIONS. DENIES PAIN OR NAUSEA. REPORTS DYSPNEA. ON 2L VIA NC, E/U RESPIRATIONS, SPO2 @93%. PT TOOK OFF NC & DESAT TO 82% ON RA. 24 HR URINE STARTED THIS AM @0530. PT HAS BEEN NPO, EXCEPT A COUPLE SIPS OF WATER W/MORNING PO MEDS, PER SHELL FOR POSSIBLE PERMACATH PLACEMENT THIS AM BY [facility]. TELE IN PLACE RUNNING NSR W/1ST DEGREE HB, BBB, PAC'S HR 84. ONLY HAD 50ML DARK URINE OUT OF LOPEZ, EVEN FLUSHED LOPEZ TO MAKE SURE IT WAS NOT CLOGGED & IT HAD SLIGHT DRAINAGE AFTERWARDS. CRITICAL LABS: K AT 6.4- PHOS @8.6 & INR @6.19, DR GOFF INFORMED & HE PUT IN NEW ORDERS FOR BICARB, INSULIN & D50. DR GOFF STATED ONCE MEDS WERE GIVEN TO ORDER REPEAT LABS THEN CALL HIM BACK W/RESULTS-THIS WAS PASSED ONTO DAY SHIFT RN. CALL LIGHT IN REACH.
[2019-09-29 10:06] LABS: Potassium, Blood 6.4 mmol/L (3.5-5.5)
[2019-09-29 10:07] LABS: Phosphorus, Blood 8.3 mg/dL (2.5-4.9)
--- NOTE | 2019-09-29 12:21 | NUR ---
PT WAS ALMOST ABLE TO HAVE A BOWEL MOVEMENT, THE BM WAS COMPACTED INSIDE THE PT. BEDPAN WAS ON PT FOR 10 MINUTES
--- NOTE | 2019-09-29 18:10 | NUR ---
PT HAS BEEN LATHARGIC ALL SHIFT AND UNABLE TO ANSWER QUESTIONS BEYOND YES WHICH SHE STATED FOR ANY QUESTION ASKED. SHE HAS HAD SPASTIC MOVEMENTS AND WILL GROAN OR GRUNT. PATIENT TO HAVE PERMACATH PLACED. PT SLEPT ALL SHIFT. PT HAS HAD LOW URINE OUTPUT. LARGE BM THIS SHIFT.
--- NOTE | 2019-09-29 19:37 | NUR ---
pat out of room at dialysis.
--- NOTE | 2019-09-29 21:36 | NUR ---
2109: PATIENT RETURNED FROM DIALYSIS. CHANGED LINENS REPOSITIONED; SHIFT ASSESSMENT COMPLETED. ICE ADDED TO 24 HR URINE BUCKET. PT AO X1, BED LOW AND LOCKED AND ALARMED. CALL BOSWELL WITHIN REACH. TOILET AND LAUNDRY SOAP SUPERVISOR ASSISTING TO EAT.
[2019-09-30] LABS: PCO2 Arterial 61.1 mmHg (35-45); PO2 Arterial 73.4 mmHg (80-100)
--- NOTE | 2019-09-30 00:12 | NUR ---
2335: PT FOUND HAVING REMOVED HER O2 AND HAVING DESATURATED AND CYANOTIC WAS CALLING OUT FOR HELP; GASPING FOR AIR. A RAPID RESPONSE WAS CALLED. 2357: ABGS WERE DRAWN. PT STABILIZED QUICKLY AND DR WAS CALLED. ORDERS PER EMAR.
[2019-09-30 00:33] LABS: Albumin, Blood 2.6 g/dL (3.4-5.0); Anion Gap 11 mmol/L (6-16); Blood Urea Nitrogen 101 mg/dL (8-24); Bun/Creatinine Ratio 21.9 (12.0-20.0); CO2, Blood 24 mmol/L (21-32); Calcium, Blood 8.1 mg/dL (8.5-10.1); Chloride, Blood 99 mmol/L (98-108); Creatinine, Blood 4.62 mg/dL (0.40-1.00); Glomerular Filtration Rate 10 (60-); Glucose, Blood 158 mg/dL (70-99); Phosphorus, Blood 7.3 mg/dL (2.5-4.9); Potassium, Blood 5.3 mmol/L (3.5-5.5); Sodium, Blood 134 mmol/L (136-145)
--- NOTE | 2019-09-30 05:19 | NUR ---
END OF SHIFT: PT WAS OFF THE FLOOR DURING SHIFT CHANGE AND RETURNED FROM DIALYSIS AT 2109: SHE RECEIVED MEDS PER EMAR AND SHE HAD A LINEN CHANGE. SHE WAS REPOSITIONED FOR COMFORT AND WAS RESTING QUIETLY. BUT AT 2335 SHE WAS FOUND HAVING PULLED OFF HER O2 AND DESATURATINGM GASPING FOR AIR. THE RN WHO FOUND HER CALLED A RAPID RESPONSE. SHE WAS STABLIZED AND PUT ON BPAP MSERIES ON THE MEDICAL FLOOR. SHE AGAIN RESTED FOR A WHILE BUT THIS MORNING SHE IS BECOMING AGITATED AGAIN, PULLING AT HER MASK, SHE HAS REMOVED IT SEVERAL TIMES. WILL CALL THE ON-CALL HOSPITALIST TO REPORT THIS.
[2019-09-30 05:23] LABS: Hematocrit 31.7 % (33.0-51.0); Hemoglobin 8.8 g/dL (11.5-16.0)
[2019-09-30 05:32] LABS: Prothrombin Time Results 42.5 Sec (9.7-11.5)
[2019-09-30 05:38] LABS: Albumin, Blood 2.6 g/dL (3.4-5.0); Anion Gap 11 mmol/L (6-16); Blood Urea Nitrogen 105 mg/dL (8-24); Bun/Creatinine Ratio 21.3 (12.0-20.0); CO2, Blood 25 mmol/L (21-32); Chloride, Blood 99 mmol/L (98-108); Creatinine, Blood 4.94 mg/dL (0.40-1.00); Glomerular Filtration Rate 9 (60-); Glucose, Blood 157 mg/dL (70-99); Magnesium, Blood 2.3 mg/dL (1.6-2.4); Phosphorus, Blood 7.8 mg/dL (2.5-4.9); Potassium, Blood 5.3 mmol/L (3.5-5.5); Sodium, Blood 135 mmol/L (136-145)
[2019-09-30 05:53] LABS: International Normalized Ratio 4.31
[2019-09-30 06:59] LABS: Protein, Urine Quantitative 1489.3 mg/dL (0.0-11.9)
--- NOTE | 2019-09-30 12:28 | NUR ---
SPOKE WITH DR. GOODMAN ABOUT CH INR VALUE FROM 0502 THIS MORNING. MONIQUERAN HAD BEEN HELD BY PHARMACY
--- NOTE | 2019-09-30 18:54 | NUR ---
SHIFT SUMMARY- PT IS ALERT, WITH INTERMITENT CONFUSION. PT TO DYALISIS THIS MORNING. PT EATING AND DRINKING WELL. PT IS INCONTINENT OF STOOL AND HAD ONE LARGE BM THIS AFTERNOON. REMOVED LOPEZ PER PHYSICIANS ORDERS. PT HAD MINIMAL URINE OUTPUT THIS SHIFT. PT REQUIRES ASSISTANCE AT MEALS. THIS EVENING DRUING DINNER SHE ASPERATED ON SOME FOOD AND BEGAN COUGHING, THE FOOD CAME OUT OF HER NOSE. DR. SADLER NOTIFIED. WILL CONTINUE TO MONITOR
--- NOTE | 2019-09-30 19:35 | NUR ---
PATIENT SITTING UP IN BED TONIGHT, DENIES PAIN, SATURATING WELL ON 3L O2. PT IS STILL VERY EDEMATOUS B/L ARMS AND LEGS. SHE IS MORE ALERT AND ORIENTED TONIGHT AOX3. PT IS CALM AND COOPERATIVE WITH CARE. SHIFT ASSESSMENT COMPLETED. 3 RAILS UP AND BED ALARMED FOR SAFETY. WILL CONTINUE TO MONITOR.
[2019-10-01 04:58] LABS: Hematocrit 32.3 % (33.0-51.0); Hemoglobin 9.2 g/dL (11.5-16.0)
[2019-10-01 05:41] LABS: Albumin, Blood 2.6 g/dL (3.4-5.0); Anion Gap 10 mmol/L (6-16); Blood Urea Nitrogen 81 mg/dL (8-24); Bun/Creatinine Ratio 19.2 (12.0-20.0); CO2, Blood 27 mmol/L (21-32); Calcium, Blood 8.3 mg/dL (8.5-10.1); Chloride, Blood 99 mmol/L (98-108); Creatinine, Blood 4.22 mg/dL (0.40-1.00); Glomerular Filtration Rate 11 (60-); Glucose, Blood 164 mg/dL (70-99); Magnesium, Blood 2.2 mg/dL (1.6-2.4); Phosphorus, Blood 6.3 mg/dL (2.5-4.9); Sodium, Blood 136 mmol/L (136-145)
[2019-10-01 06:11] LABS: HBSAG SCREEN Negative (Negative); HEP A AB, IGM Negative (Negative); HEP B CORE AB, IGM Negative (Negative); HEP C VIRUS AB <0.1 (0.0-0.9)
[2019-10-01 06:39] LABS: International Normalized Ratio 3.07; Prothrombin Time Results 30.8 Sec (9.7-11.5)
[2019-10-01 07:11] LABS: ANTIGLOMERULAR BM AB 2 units (0-20)
[2019-10-01 11:02] LABS: Antinuclear Antibody Screen Positive (Negative)
[2019-10-01 14:11] LABS: ANA DIRECT Negative (Negative); ANTIMYELOPEROXIDASE (MPO) ABS <9.0 U/mL (0.0-9.0); ANTIPROTEINASE 3 (PR-3) ABS <3.5 U/mL (0.0-3.5); ATYPICAL PANCA <1:20 titer (Neg:<1:20); CYTOPLASMIC (C-ANCA) <1:20 titer (Neg:<1:20); PERINUCLEAR (P-ANCA) <1:20 titer (Neg:<1:20)
[2019-10-01 15:11] LABS: A/G RATIO 1.3 (0.7-1.7); ALBUMIN 3.1 g/dL (2.9-4.4); ALPHA-1-GLOBULIN 0.3 g/dL (0.0-0.4); ALPHA-2-GLOBULIN 0.5 g/dL (0.4-1.0); BETA GLOBULIN 0.9 g/dL (0.7-1.3); GAMMA GLOBULIN 0.7 g/dL (0.4-1.8); GLOBULIN, TOTAL 2.4 g/dL (2.2-3.9); IMMUNOGLOBULIN A, QN, SERUM 650 mg/dL (64-422); IMMUNOGLOBULIN G, QN, SERUM 690 mg/dL (700-1600); IMMUNOGLOBULIN M, QN, SERUM 40 mg/dL (26-217); M-SPIKE Not Observed g/dL (Not Observed); PROTEIN, TOTAL, SERUM 5.5 g/dL (6.0-8.5)
--- NOTE | 2019-10-01 16:51 | NUR ---
SHIFT SUMMARY- PT IS PLESANT AND COOPERATIVE. SHE HAD A POOR APPETITE THIS MORNING AND AFTERNOON. PT WAS CONFUSED THIS MORNING AND DID NOT KNOW WHERE SHE WAS. SHE SLEPT FOR MUCH OF THIS SHIFT AND WAS DID NOT STAY AWAKE FOR LONG PERIODS OF TIME. SHE RECIEVED DYALISIS THIS EVENING.
[2019-10-02 06:29] LABS: Hematocrit 31.1 % (33.0-51.0); Hemoglobin 8.9 g/dL (11.5-16.0)
[2019-10-02 06:38] LABS: International Normalized Ratio 3.02; Prothrombin Time Results 30.4 Sec (9.7-11.5)
[2019-10-02 06:43] LABS: Albumin, Blood 2.6 g/dL (3.4-5.0); Anion Gap 8 mmol/L (6-16); Blood Urea Nitrogen 66 mg/dL (8-24); Bun/Creatinine Ratio 15.2 (12.0-20.0); CO2, Blood 31 mmol/L (21-32); Calcium, Blood 8.7 mg/dL (8.5-10.1); Chloride, Blood 100 mmol/L (98-108); Creatinine, Blood 4.33 mg/dL (0.40-1.00); Glomerular Filtration Rate 10 (60-); Glucose, Blood 90 mg/dL (70-99); Magnesium, Blood 2.2 mg/dL (1.6-2.4); Phosphorus, Blood 5.6 mg/dL (2.5-4.9); Potassium, Blood 4.3 mmol/L (3.5-5.5); Sodium, Blood 139 mmol/L (136-145)
--- NOTE | 2019-10-02 06:47 | NUR ---
PHYSICIAN COMMUNICATION CONTACTED DR LYLES AT 0641 TO INFORM HIM THAT THE PATIENT'S LANTUS HAD BE HELD DUE TO HER HAVING A BLOOD SUGAR OF 89. ALSO LET HIM KNOW THAT SHE HAD RECEIVED 20 UNITS OF LANTUS LAST NIGHT.
--- NOTE | 2019-10-02 07:30 | NUR ---
SHIFT SUMMARY PATIENT FAIRLY LETHARGIC OVERNIGHT. DIFFICULT TO AROUSE FROM SLEEPING TO ADMINISTER MEDS TO HER. PATIENT HAD NO URINE OUTPUT. 0600 LANTUS HELD DUE TO BLOOD SUGAR OF 89. PATIENT CURRENTLY ON 3 LITERS OF O2 VIA NC. IV IN LEFT UPPER ARM INFILTRATED, NEW IV PLACED BY ALTHEA VITALE IN THE RIGHT FORARM. IV IS PATENT AND FLUSHED. BED IN LOWEST POSITION WITH WHEELS LOCKED. CALL LIGHT WITHIN REACH. REPORT GIVEN TO ONCKANWAL CORNELIUS.
--- NOTE | 2019-10-02 08:00 | NUR ---
PT. HAS A 20 GUAGE IV IN HER RIGHT FA S.L.'D IV NOT DOCUMENTED .
--- NOTE | 2019-10-02 18:00 | NUR ---
PT. TO DIALYSIS VIA BED, MEDS GIVEN BEFORE SHE LEFT. PT. WAS ON 4-5 LITERS 02 VIA NC. PT. WAS TO BE DISCHARGED TODAY BUT DR. GOFF WANTED HER TO GET DIALYSIS OVER THE WEEKEND. PT. HAS BEEN ON THE BI-PAP MOST OF THE DAY R/T HER SLEEPING AND THE SATS DROPPING INTO THE 70'S. PT. SLEPT UNTIL ALMOST NOON TODAY THEN ATE HER LUNCH. PT. STILL IN DIALYSIS AT THIS TIME.
--- NOTE | 2019-10-03 04:53 | NUR ---
SHIFT SUMMARY PATIENT LETHARGIC OVERNIGHT, EASILY AROUSABLE TO SOUND AND LIGHT TOUCH. PATIENT WORE BIPAP LONG TOLERATED OVERNIGHT AND NASAL CANULA THE REST OF THE SHIFT WITH 4 LITERS O2. IV PATENT AND FLUSHED. BED IN LOWEST POSITION WITH WHEELS LOCKED AND ALARM ON. CALL LIGHT WITHIN REACH. REPORT GIVEN TO ONCOMING RN.
[2019-10-03 05:58] LABS: Hematocrit 31.9 % (33.0-51.0); Hemoglobin 8.8 g/dL (11.5-16.0)
[2019-10-03 06:08] LABS: International Normalized Ratio 3.4; Prothrombin Time Results 33.9 Sec (9.7-11.5)
[2019-10-03 06:12] LABS: Albumin, Blood 2.5 g/dL (3.4-5.0); Anion Gap 4 mmol/L (6-16); Blood Urea Nitrogen 63 mg/dL (8-24); Bun/Creatinine Ratio 14.6 (12.0-20.0); CO2, Blood 31 mmol/L (21-32); Calcium, Blood 8.8 mg/dL (8.5-10.1); Chloride, Blood 99 mmol/L (98-108); Creatinine, Blood 4.32 mg/dL (0.40-1.00); Glomerular Filtration Rate 10 (60-); Glucose, Blood 122 mg/dL (70-99); Magnesium, Blood 2.2 mg/dL (1.6-2.4); Phosphorus, Blood 5.7 mg/dL (2.5-4.9); Potassium, Blood 4.2 mmol/L (3.5-5.5); Sodium, Blood 134 mmol/L (136-145)
--- NOTE | 2019-10-04 01:13 | NUR ---
PHYSICIAN COMMUNICATION CONTACTED THE SOFT IRON INSPECTOR PHYSICIAN, HARRY LEON, AT 0030 TO INFORM HER THAT THE PATIENT WAS HAVING PAIN IN HER LOWER LEGS, STARTING JUST ABOVE THE KNEES AND RADIATING TO HER ANKLES THAT WAS DESCRIBED A THROBBING PAIN. INFORMED HER THAT THE REPOSITIONING, MOVEMENT OF THE EXTREMITIES, AND TYLENOL WERE ALL INEFFECTIVE WITH HER PAIN. THIS NURSE LET HARRY KNOW THAT THE PATIENT HAD RECEIVED DIALYSIS YESTERDAY AND REVIEWED HER MOST RECENT ELECTROLYTE LEVELS. HARRY ASKED IF THE PATIENT WAS DIABETIC AND THIS NURSE EXPLAINED YES BUT THAT THE PATIENT DENIED ANY FEELING OF BURNING, NUMBNESS, OR TINGLING IN HER LEGS. THIS NURSE ALSO INFORMED THE SOFT IRON INSPECTOR PHYSICIAN THAT THE PATIENT WAS WONDERING IF SHE COULD HAVE ANYTHING THAT COULD HELP HER SLEEP. HARRY LEON SAID THAT SHE WAS GOING TO ENTER ORDERS INTO THE EMAR FOR A ONE TIME DOSE OF ULTRAM FOR THE PATIENTS PAIN AND MELATONIN TO HELP HER SLEEP.
[2019-10-04 06:05] LABS: Hematocrit 32.1 % (33.0-51.0); Hemoglobin 9.2 g/dL (11.5-16.0)
--- NOTE | 2019-10-04 06:08 | NUR ---
SHIFT SUMMARY PATIENT ALERT AND ORIENTED OVERNIGHT. EXPERIENCED PAIN IN HER KNEES WHICH WAS MEDICATED ACCORDING TO THE EMAR AND WAS EFFECTIVE. PATIENT REFUSED TO WEAR THE BIPAP MOST OF THE NIGHT BUT O2 SATS REMAINED IN THE 90S. PATIENT CURRENTLY ON 4 LITERS O2 VIA NASAL CANULA. IV PATENT AND FLUSHED. BED IN THE LOWEST POSITION WITH WHEELS LOCKED. CALL LIGHT AND BELONGINGS WITHIN REACH. REPORT GIVEN TO ONCKANWAL CORNELIUS.
[2019-10-04 06:27] LABS: Albumin, Blood 2.5 g/dL (3.4-5.0); Anion Gap 7 mmol/L (6-16); Blood Urea Nitrogen 58 mg/dL (8-24); Bun/Creatinine Ratio 13.1 (12.0-20.0); CO2, Blood 31 mmol/L (21-32); Calcium, Blood 8.8 mg/dL (8.5-10.1); Chloride, Blood 100 mmol/L (98-108); Creatinine, Blood 4.44 mg/dL (0.40-1.00); Glomerular Filtration Rate 10 (60-); Glucose, Blood 108 mg/dL (70-99); Magnesium, Blood 2.1 mg/dL (1.6-2.4); Phosphorus, Blood 5.3 mg/dL (2.5-4.9); Potassium, Blood 4.6 mmol/L (3.5-5.5); Sodium, Blood 138 mmol/L (136-145)
[2019-10-04 06:28] LABS: International Normalized Ratio 2.84; Prothrombin Time Results 28.6 Sec (9.7-11.5)
[2019-10-04 13:07] LABS: M-SPIKE, % Not Observed % (Not Observed); PROTEIN,TOTAL,URINE 1560.1 mg/dL (Not Estab.)
[2019-10-04 13:54] LABS: ANA Pattern Homogenous
--- NOTE | 2019-10-04 14:33 | NUR ---
PT DISCHARGED FROM UNIT. LEFT WITH TRANSPORT VIA WHEEL CHAIR. IV REMOVED. REPORT GIVEN TO NURSE AT [facility]. PERSONAL BELONGINGS RETURNED. TELEMETRY REMOVED.
== END 2019-10-04 13:39 | DRG 673 ==
LOC: ER 07:43 → MEDS 11:16 → ERHOLD 11:16 → MEDS 14:41
PROVIDERS: Emergency Medicine; Internal Medicine; Internal Medicine Nephrology; Nurse Practitioner Acute Care; Pharmacist; ADMIT Family Medicine
PROC: 05HM33Z Insertion of Infusion Device into Right Internal Jugular Vein, Percutaneous Approach (ICD-10-PCS; principal; 2019-09-27)
PROC: 0JH63XZ Insertion of Tunneled Vascular Access Device into Chest Subcutaneous Tissue and Fascia, Percutaneous Approach (ICD-10-PCS; 2019-09-27)
PROC: B513YZA Fluoroscopy of Right Jugular Veins using Other Contrast, Guidance (ICD-10-PCS; 2019-09-27)
PROC: 5A1D70Z Performance of Urinary Filtration, Intermittent, Less than 6 Hours Per Day (ICD-10-PCS; 2019-09-28)
PROC: 5A1D70Z Performance of Urinary Filtration, Intermittent, Less than 6 Hours Per Day (ICD-10-PCS; 2019-09-29)
PROC: 5A1D70Z Performance of Urinary Filtration, Intermittent, Less than 6 Hours Per Day (ICD-10-PCS; 2019-09-30)
DX: N17.9 Acute kidney failure, unspecified (principal); G93.41 Metabolic encephalopathy; D68.9 Coagulation defect, unspecified; I12.0 Hypertensive chronic kidney disease with stage 5 chronic kidney disease or end stage renal disease; Z68.43 Body mass index [BMI] 50.0-59.9, adult; E87.1 Hypo-osmolality and hyponatremia; E11.22 Type 2 diabetes mellitus with diabetic chronic kidney disease; N18.6 End stage renal disease; Z99.2 Dependence on renal dialysis; D63.1 Anemia in chronic kidney disease; E03.9 Hypothyroidism, unspecified; E11.40 Type 2 diabetes mellitus with diabetic neuropathy, unspecified; E11.59 Type 2 diabetes mellitus with other circulatory complications; E11.65 Type 2 diabetes mellitus with hyperglycemia; E66.01 Morbid (severe) obesity due to excess calories; E83.39 Other disorders of phosphorus metabolism; E86.0 Dehydration; E87.5 Hyperkalemia; G47.33 Obstructive sleep apnea (adult) (pediatric); I48.91 Unspecified atrial fibrillation; J44.9 Chronic obstructive pulmonary disease, unspecified; K21.9 Gastro-esophageal reflux disease without esophagitis; W19.XXXA Unspecified fall, initial encounter; Z87.891 Personal history of nicotine dependence; Z91.14 Patient's other noncompliance with medication regimen; Z95.2 Presence of prosthetic heart valve; Z79.4 Long term (current) use of insulin; E87.70 Fluid overload, unspecified; E88.09 Other disorders of plasma-protein metabolism, not elsewhere classified
CPT/HCPCS: 36415; 36430; 36558; 36600; 51702; 51798; 70450; 71045; 76937; 80048; 80053; 80069; 80074; 81001; 81050; 82550; 82784; 82803; 82947; 83036; 83516; 83520; 83735; 83880; 84100; 84132; 84156; 84165; 84166; 84443; 84550; 85014; 85018; 85025; 85610; 86038; 86039; 86256; 86317; 86334; 86335; 86850; 86900; 86901; 86923; 87081; 87086; 93005; 93010; 94640; 94660; 94762; 96361; 96365; 97110; 97116; 97162; 97166; 97530; 97535; 99152; 99153; 99285-25; A9270; A9270-GY; C1750; C1769; J0610; J0881; J1630; J1644; J1815; J1940; J2916; J3010; J7030; J7040; P9016; P9059

== ENCOUNTER 2019-10-14 22:01 | Emergency (ER) | payer OTHER ==
[~2019-10-14] VITALS: Ht 162.6 cm; Wt 113.4 kg
[~2019-10-14 22:01] MED LIST changes: +Anti-Diarrheal2 MG PO; +LEVSOD112 PO; +TYLENOL325 M1 PO; +WARF2.5 PO
[2019-10-14 22:56] LABS: BASOPHILS ABSOLUTE AUTO 0.04 K/mm3 (0.00-0.23); BASOPHILS PERCENT AUTO 1 % (0-2); EOSINOPHILS PERCENT AUTO 3 % (0-6); Hematocrit 32.4 % (33.0-51.0); Hemoglobin 9.2 g/dL (11.5-16.0); IMMATURE GRAN ABSOLUTE AUTO 0.02 K/mm3 (0.00-0.10); IMMATURE GRAN PERCENT AUTO 1 % (0-1); LYMPHOCYTES ABSOLUTE AUTO 0.75 K/mm3 (0.84-5.20); LYMPHOCYTES PERCENT AUTO 22 % (21-46); MONOCYTES PERCENT AUTO 12 % (4-13); Mean Corpuscular HGB 24.4 pg (26.0-34.0); Mean Corpuscular HGB Conc 28.4 g/dL (31.5-36.5); Mean Corpuscular Volume 86 fL (80-100); NEUTROPHILS ABSOLUTE AUTO 2.12 K/mm3 (1.96-9.15); NEUTROPHILS PERCENT AUTO 62 % (41-73); Platelet Count 73 K/mm3 (150-400); RDW Coefficient Variation 18.2 % (11.7-14.2); RDW Standard Deviation 57.5 fL (35.1-46.3); Red Blood Cell Count 3.77 M/mm3 (3.80-5.20); White Blood Cell Count 3.43 K/mm3 (4.00-11.30)
[2019-10-14] MEDS ORDERED: FERRIC CITRATE210 MG PO (22:59)
[2019-10-14] MEDS ORDERED: ACET120S PR (23:00)
[2019-10-14] MEDS ORDERED: BISA10S PR (23:00)
[2019-10-14] MEDS ORDERED: Fleet Bisa10 MG/30 M RC (23:01)
[2019-10-14 23:08] LABS: Albumin, Blood 2.8 g/dL (3.4-5.0); Albumin/Globulin Ratio 0.8 (0.8-1.8); Bilirubin, Total 0.6 mg/dL (0.1-1.0); Bun/Creatinine Ratio 11.3 (12.0-20.0); Calcium, Blood 8.7 mg/dL (8.5-10.1); Creatinine, Blood 3.8 mg/dL (0.40-1.00); Globulin, Blood 3.4 g/dL (2.2-4.0); Potassium, Blood 4.8 mmol/L (3.5-5.5); Total Protein, Blood 6.2 g/dL (6.4-8.2)
[2019-10-15] MEDS ORDERED: Bactrim Ds Tab1 EACH PO (00:02)
== END 2019-10-15 00:32 | disposition home or self-care (01) ==
LOC: ER 22:01
PROVIDERS: Emergency Medicine
DX: L03.116 Cellulitis of left lower limb (principal); L03.115 Cellulitis of right lower limb; B95.62 Methicillin resistant Staphylococcus aureus infection as the cause of diseases classified elsewhere; Z88.0 Allergy status to penicillin; Z88.1 Allergy status to other antibiotic agents; Z88.8 Allergy status to other drugs, medicaments and biological substances; Z88.7 Allergy status to serum and vaccine; Z79.899 Other long term (current) drug therapy; Z79.4 Long term (current) use of insulin; Z79.01 Long term (current) use of anticoagulants; E11.40 Type 2 diabetes mellitus with diabetic neuropathy, unspecified; I48.91 Unspecified atrial fibrillation; E03.9 Hypothyroidism, unspecified; I11.0 Hypertensive heart disease with heart failure; I50.9 Heart failure, unspecified; D64.9 Anemia, unspecified; N18.9 Chronic kidney disease, unspecified; G47.30 Sleep apnea, unspecified
CPT/HCPCS: 36415; 80053; 85025; 99283; A9270-GY

== ENCOUNTER 2019-10-19 00:17 | Day surgery (SDC) | payer OTHER ==
[~2019-10-19 00:17] MED LIST changes: +ACET120S PR; +FERRIC CITRATE210 MG PO; +Fleet Bisa10 MG/30 M RC
== END 2019-10-19 22:50 | disposition home or self-care (01) ==
LOC: WOUND
DX: I13.2 Hypertensive heart and chronic kidney disease with heart failure and with stage 5 chronic kidney disease, or end stage renal disease (principal); E11.22 Type 2 diabetes mellitus with diabetic chronic kidney disease; N18.6 End stage renal disease; D63.1 Anemia in chronic kidney disease; N25.81 Secondary hyperparathyroidism of renal origin; I50.9 Heart failure, unspecified; J44.9 Chronic obstructive pulmonary disease, unspecified; Z99.2 Dependence on renal dialysis; Z79.4 Long term (current) use of insulin; Z79.899 Other long term (current) drug therapy; E87.5 Hyperkalemia
CPT/HCPCS: G0463

== ENCOUNTER 2019-10-21 00:27 | Day surgery (SDC) | payer OTHER | END 2019-10-21 22:53 | disposition home or self-care (01) | LOC: WOUND 00:27 | DX: E11.622 Type 2 diabetes mellitus with other skin ulcer (principal); L97.822 Non-pressure chronic ulcer of other part of left lower leg with fat layer exposed; I87.2 Venous insufficiency (chronic) (peripheral); G47.33 Obstructive sleep apnea (adult) (pediatric); J44.9 Chronic obstructive pulmonary disease, unspecified; E03.9 Hypothyroidism, unspecified; E78.1 Pure hyperglyceridemia; M19.90 Unspecified osteoarthritis, unspecified site; I11.0 Hypertensive heart disease with heart failure; I50.9 Heart failure, unspecified ==

== ENCOUNTER 2019-10-28 00:52 | Day surgery (SDC) | payer OTHER | END 2019-10-28 22:45 | disposition home or self-care (01) | LOC: WOUND 00:52 | DX: E11.622 Type 2 diabetes mellitus with other skin ulcer (principal); L97.822 Non-pressure chronic ulcer of other part of left lower leg with fat layer exposed; I87.2 Venous insufficiency (chronic) (peripheral); Z79.4 Long term (current) use of insulin ==

== ENCOUNTER 2019-10-30 21:54 | Emergency (ER) | payer OTHER ==
[~2019-10-30] VITALS: Ht 162.6 cm; Wt 113.4 kg
[2019-10-30] MEDS ORDERED: Doxycycline Mo100 M1 PO (22:17)
[2019-10-30 23:21] LABS: International Normalized Ratio 1.3; Prothrombin Time Results 13.7 Sec (9.7-11.5)
[2019-10-30] MEDS ORDERED: Vibramycin100 MG PO (23:57)
== END 2019-10-31 00:22 | disposition home or self-care (01) ==
LOC: ER 21:54
PROVIDERS: Emergency Medicine
DX: S92.501A Displaced unspecified fracture of right lesser toe(s), initial encounter for closed fracture (principal); S01.512A Laceration without foreign body of oral cavity, initial encounter; E11.40 Type 2 diabetes mellitus with diabetic neuropathy, unspecified; R79.1 Abnormal coagulation profile; I13.0 Hypertensive heart and chronic kidney disease with heart failure and stage 1 through stage 4 chronic kidney disease, or unspecified chronic kidney disease; N18.9 Chronic kidney disease, unspecified; I50.9 Heart failure, unspecified; E11.22 Type 2 diabetes mellitus with diabetic chronic kidney disease; I48.91 Unspecified atrial fibrillation; E03.9 Hypothyroidism, unspecified; K21.9 Gastro-esophageal reflux disease without esophagitis; Z88.0 Allergy status to penicillin; Z88.7 Allergy status to serum and vaccine; Z88.1 Allergy status to other antibiotic agents; Z88.8 Allergy status to other drugs, medicaments and biological substances; Z79.899 Other long term (current) drug therapy; Z79.4 Long term (current) use of insulin; W05.0XXA Fall from non-moving wheelchair, initial encounter
CPT/HCPCS: 12001; 36415; 73620; 85610; 99284-25

== ENCOUNTER 2019-11-02 00:17 | Day surgery (SDC) | payer OTHER | END 2019-11-02 22:46 | disposition home or self-care (01) | LOC: WOUND 00:17 | DX: L97.811 Non-pressure chronic ulcer of other part of right lower leg limited to breakdown of skin (principal); I87.2 Venous insufficiency (chronic) (peripheral); E11.9 Type 2 diabetes mellitus without complications; J44.9 Chronic obstructive pulmonary disease, unspecified; G47.33 Obstructive sleep apnea (adult) (pediatric); I11.0 Hypertensive heart disease with heart failure; I50.9 Heart failure, unspecified; E78.1 Pure hyperglyceridemia; E03.9 Hypothyroidism, unspecified; M19.90 Unspecified osteoarthritis, unspecified site; I48.91 Unspecified atrial fibrillation ==

== ENCOUNTER 2019-12-16 10:57 | Emergency (ER) | payer OTHER ==
[~2019-12-16] VITALS: Ht 160 cm; Wt 122.5 kg
[~2019-12-16 10:57] MED LIST changes: -LORA.5 PO; -MIDO5 PO
[2019-12-16 11:56] LABS: BASOPHILS ABSOLUTE AUTO 0.05 K/mm3 (0.00-0.23); BASOPHILS PERCENT AUTO 1 % (0-2); EOSINOPHILS ABSOLUTE AUTO 0.14 K/mm3 (0.00-0.68); EOSINOPHILS PERCENT AUTO 4 % (0-6); Hematocrit 40.6 % (33.0-51.0); Hemoglobin 11.7 g/dL (11.5-16.0); IMMATURE GRAN ABSOLUTE AUTO 0.01 K/mm3 (0.00-0.10); IMMATURE GRAN PERCENT AUTO 0 % (0-1); LYMPHOCYTES ABSOLUTE AUTO 1.45 K/mm3 (0.84-5.20); LYMPHOCYTES PERCENT AUTO 37 % (21-46); MONOCYTES ABSOLUTE AUTO 0.44 K/mm3 (0.16-1.47); MONOCYTES PERCENT AUTO 11 % (4-13); Mean Corpuscular HGB 25.8 pg (26.0-34.0); Mean Corpuscular HGB Conc 28.8 g/dL (31.5-36.5); Mean Corpuscular Volume 89 fL (80-100); NEUTROPHILS ABSOLUTE AUTO 1.82 K/mm3 (1.96-9.15); NEUTROPHILS PERCENT AUTO 46 % (41-73); Platelet Count 78 K/mm3 (150-400); RDW Coefficient Variation 20.2 % (11.7-14.2); RDW Standard Deviation 65.9 fL (35.1-46.3); Red Blood Cell Count 4.54 M/mm3 (3.80-5.20); White Blood Cell Count 3.91 K/mm3 (4.00-11.30)
[2019-12-16 12:20] LABS: Albumin/Globulin Ratio 0.8 (0.8-1.8); Bilirubin, Total 0.9 mg/dL (0.1-1.0); Bun/Creatinine Ratio 6.7 (12.0-20.0); Calcium, Blood 9.3 mg/dL (8.5-10.1); Creatinine, Blood 3.14 mg/dL (0.40-1.00); Globulin, Blood 3.7 g/dL (2.2-4.0); Potassium, Blood 3.8 mmol/L (3.5-5.5); Total Protein, Blood 6.7 g/dL (6.4-8.2)
[2019-12-16 12:28] LABS: International Normalized Ratio 1.29; Prothrombin Time Results 13.6 Sec (9.7-11.5)
[2019-12-16] MEDS ORDERED: LORA.5 PO (13:22)
[2019-12-16] MEDS ORDERED: MIDO5 PO ×2 (13:27→13:30)
[2019-12-16] MEDS ORDERED: Ropinirole HCl0.5 MG PO (13:29)
[2019-12-16] MEDS ORDERED: FERRIC CITRATE210 MG PO (13:30)
== END 2019-12-16 16:50 | disposition home or self-care (01) ==
LOC: ER 10:57
PROVIDERS: Emergency Medicine
DX: S92.351A Displaced fracture of fifth metatarsal bone, right foot, initial encounter for closed fracture (principal); S92.321A Displaced fracture of second metatarsal bone, right foot, initial encounter for closed fracture; S92.331A Displaced fracture of third metatarsal bone, right foot, initial encounter for closed fracture; E11.69 Type 2 diabetes mellitus with other specified complication; M86.671 Other chronic osteomyelitis, right ankle and foot; I13.0 Hypertensive heart and chronic kidney disease with heart failure and stage 1 through stage 4 chronic kidney disease, or unspecified chronic kidney disease; E11.22 Type 2 diabetes mellitus with diabetic chronic kidney disease; I50.9 Heart failure, unspecified; N18.9 Chronic kidney disease, unspecified; D63.1 Anemia in chronic kidney disease; E11.40 Type 2 diabetes mellitus with diabetic neuropathy, unspecified; K21.9 Gastro-esophageal reflux disease without esophagitis; I48.91 Unspecified atrial fibrillation; E03.9 Hypothyroidism, unspecified; Z99.2 Dependence on renal dialysis; Z88.0 Allergy status to penicillin; Z88.7 Allergy status to serum and vaccine; Z88.1 Allergy status to other antibiotic agents; Z88.8 Allergy status to other drugs, medicaments and biological substances; Z79.899 Other long term (current) drug therapy; Z79.51 Long term (current) use of inhaled steroids; Z79.4 Long term (current) use of insulin; Z79.01 Long term (current) use of anticoagulants; X58.XXXA Exposure to other specified factors, initial encounter
CPT/HCPCS: 36415; 73620; 80053; 85025; 85610; 85730; 99285-25

== ENCOUNTER → 2019-12-16 | Outpatient (CLI) | payer OTHER ==
[~2019-12-16] MED LIST changes: +LORA.5 PO; +MIDO5 PO; +Ropinirole HCl0.5 MG PO; -WARF2.5 PO; +WARF3 PO
[2019-12-16 13:46] LABS: International Normalized Ratio 1.21; Prothrombin Time Results 12.8 Sec (9.7-11.5)
== END | disposition home or self-care (01) ==
LOC: EDSTATUS 10:17 → LAB UVN 12:43
PROVIDERS: Internal Medicine Hematology & Oncology
DX: I48.20 Chronic atrial fibrillation, unspecified (principal)
CPT/HCPCS: 85610

== ENCOUNTER → 2019-12-23 | Outpatient (CLI) | payer OTHER ==
[~2019-12-23] MED LIST changes: +LORA.5 PO; +MIDO5 PO
== END | disposition home or self-care (01) ==
LOC: LAB SHORT 15:39 → LAB 15:39
DX: E11.621 Type 2 diabetes mellitus with foot ulcer (principal); L97.311 Non-pressure chronic ulcer of right ankle limited to breakdown of skin
CPT/HCPCS: 87070; 87075; 87077; 87186; 87205

== ENCOUNTER → 2019-12-28 | Outpatient (CLI) | payer OTHER ==
[~2019-12-28] MED LIST changes: +ALPR.25 PO
[2019-12-28 04:56] LABS: International Normalized Ratio 1.34; Prothrombin Time Results 14.1 Sec (9.7-11.5)
== END | disposition home or self-care (01) ==
LOC: LAB UVN 04:38 → EDSTATUS 10:59
PROVIDERS: Internal Medicine Hematology & Oncology
DX: I48.20 Chronic atrial fibrillation, unspecified (principal); I50.9 Heart failure, unspecified
CPT/HCPCS: 85610

== ENCOUNTER → 2020-01-10 | Outpatient (CLI) | payer OTHER ==
[~2020-01-10] MED LIST changes: +AURYXIA210 MG PO; +BASAGLAR K100 UNIT/1 SC; +FLEET ENEMA133 ML PR; +Feverall650 MG PR; +HUMALOG KW100 UNIT/1 SC; -HUMALOG KW200 UNIT/1 SC; +PROM25 PO; +PROM25S PR; -WARF3 PO; +WARF4 PO
== END | disposition home or self-care (01) ==
LOC: PLD 12:54 → LAB SHORT 12:54
DX: E11.40 Type 2 diabetes mellitus with diabetic neuropathy, unspecified (principal); E11.621 Type 2 diabetes mellitus with foot ulcer; L97.519 Non-pressure chronic ulcer of other part of right foot with unspecified severity; L97.529 Non-pressure chronic ulcer of other part of left foot with unspecified severity; E11.69 Type 2 diabetes mellitus with other specified complication; M86.179 Other acute osteomyelitis, unspecified ankle and foot; E11.59 Type 2 diabetes mellitus with other circulatory complications; I70.219 Atherosclerosis of native arteries of extremities with intermittent claudication, unspecified extremity; M79.673 Pain in unspecified foot
CPT/HCPCS: 88305; 88311

== ENCOUNTER 2020-01-11 22:43 | Inpatient (IN) | payer OTHER ==
[~2020-01-11] VITALS: Ht 162.6 cm; Wt 99.9 kg
[~2020-01-11 22:43] MED LIST changes: -ALPR.25 PO; -FLEET ENEMA133 ML PR; -Feverall650 MG PR; -PROM25 PO; -PROM25S PR
[2020-01-11 22:52] LABS: PCO2 Arterial 45.5 mmHg (35-45); PO2 Arterial 66.5 mmHg (80-100); pH Blood Arterial 7.41 (7.35-7.45)
[2020-01-11 23:22] LABS: BASOPHILS ABSOLUTE AUTO 0.04 K/mm3 (0.00-0.23); BASOPHILS PERCENT AUTO 1 % (0-2); EOSINOPHILS PERCENT AUTO 2 % (0-6); Hematocrit 38.3 % (33.0-51.0); Hemoglobin 11.7 g/dL (11.5-16.0); IMMATURE GRAN ABSOLUTE AUTO 0.01 K/mm3 (0.00-0.10); IMMATURE GRAN PERCENT AUTO 0 % (0-1); LYMPHOCYTES ABSOLUTE AUTO 1.09 K/mm3 (0.84-5.20); LYMPHOCYTES PERCENT AUTO 22 % (21-46); MONOCYTES ABSOLUTE AUTO 0.52 K/mm3 (0.16-1.47); MONOCYTES PERCENT AUTO 11 % (4-13); Mean Corpuscular HGB 25.6 pg (26.0-34.0); Mean Corpuscular HGB Conc 30.5 g/dL (31.5-36.5); Mean Corpuscular Volume 84 fL (80-100); NEUTROPHILS ABSOLUTE AUTO 3.13 K/mm3 (1.96-9.15); NEUTROPHILS PERCENT AUTO 64 % (41-73); RDW Coefficient Variation 18.5 % (11.7-14.2); RDW Standard Deviation 55.6 fL (35.1-46.3); Red Blood Cell Count 4.57 M/mm3 (3.80-5.20); White Blood Cell Count 4.89 K/mm3 (4.00-11.30)
[2020-01-11 23:26] LABS: Platelet Count 47 K/mm3 (150-400)
[2020-01-11 23:37] LABS: Troponin I 0.086 ng/mL (0.000-0.040)
[2020-01-11 23:40] LABS: Albumin, Blood 3.2 g/dL (3.4-5.0); Bilirubin, Total 0.8 mg/dL (0.1-1.0); Bun/Creatinine Ratio 18.4 (12.0-20.0); Calcium, Blood 8.8 mg/dL (8.5-10.1); Creatinine, Blood 6.2 mg/dL (0.40-1.00); Globulin, Blood 3.3 g/dL (2.2-4.0); Potassium, Blood 6.2 mmol/L (3.5-5.5); Total Protein, Blood 6.5 g/dL (6.4-8.2)
--- NOTE | 2020-01-12 00:40 | NUR ---
URGENT HEMODIALYSIS 1:1 NON-ROUTINE HOURS ORDERED BY DR GOFF FOR PATIENT ADMITTED TO PCU VIA ER WITH C/O HYPERKALEMIA, ALTERED MENTAL STATUS AND FLUID OVERLOAD.
[2020-01-12 01:47] LABS: International Normalized Ratio 1.24; Prothrombin Time Results 13.1 Sec (9.7-11.5)
[2020-01-12 02:14] LABS: BASOPHILS ABSOLUTE AUTO 0.04 K/mm3 (0.00-0.23); BASOPHILS PERCENT AUTO 1 % (0-2); EOSINOPHILS ABSOLUTE AUTO 0.08 K/mm3 (0.00-0.68); EOSINOPHILS PERCENT AUTO 2 % (0-6); Hematocrit 37.8 % (33.0-51.0); Hemoglobin 11.8 g/dL (11.5-16.0); IMMATURE GRAN ABSOLUTE AUTO 0.02 K/mm3 (0.00-0.10); IMMATURE GRAN PERCENT AUTO 0 % (0-1); LYMPHOCYTES ABSOLUTE AUTO 0.59 K/mm3 (0.84-5.20); LYMPHOCYTES PERCENT AUTO 11 % (21-46); MONOCYTES ABSOLUTE AUTO 0.68 K/mm3 (0.16-1.47); MONOCYTES PERCENT AUTO 13 % (4-13); Mean Corpuscular HGB 26.2 pg (26.0-34.0); Mean Corpuscular HGB Conc 31.2 g/dL (31.5-36.5); Mean Corpuscular Volume 84 fL (80-100); NEUTROPHILS ABSOLUTE AUTO 4.02 K/mm3 (1.96-9.15); NEUTROPHILS PERCENT AUTO 74 % (41-73); RDW Coefficient Variation 18.3 % (11.7-14.2); RDW Standard Deviation 55.4 fL (35.1-46.3); White Blood Cell Count 5.43 K/mm3 (4.00-11.30)
[2020-01-12 02:18] LABS: Platelet Count 46 K/mm3 (150-400)
[2020-01-12 02:28] LABS: Magnesium, Blood 2.1 mg/dL (1.6-2.4)
--- NOTE | 2020-01-12 02:31 | NUR ---
0035 PATIENT ARRIVED TO [facility] VIA [facility] FROM ER. PATIENT RESTLESS AND AGGITATED; HITTING, KICKING AND PINCHING. PATIENT DOES NOT OPEN HER EYES OR FOLLOW ANY COMMANDS EVEN THOUGH SHE IS IN A STATE OF CONSTANT RESTLESS MOVEMENT. PATIENT SLIDE TRANSFER TO BED FROM [facility] WITH MULTIPLE ASSIST. UNABLE TO COMPLETE ADMISSION DUE TO PATIENTS ALTERED MENTAL STATUS, INABILITY TO FOLLOW COMMANDS AND NONVERBAL.
[2020-01-12 02:36] LABS: Albumin, Blood 3.3 g/dL (3.4-5.0); Anion Gap 7 mmol/L (6-16); Blood Urea Nitrogen 78 mg/dL (8-24); Bun/Creatinine Ratio 17.9 (12.0-20.0); CO2, Blood 31 mmol/L (21-32); Calcium, Blood 8.7 mg/dL (8.5-10.1); Chloride, Blood 99 mmol/L (98-108); Creatinine, Blood 4.35 mg/dL (0.40-1.00); Glomerular Filtration Rate 10 (60-); Glucose, Blood 111 mg/dL (70-99); Sodium, Blood 137 mmol/L (136-145)
[2020-01-12 02:37] LABS: Potassium, Blood 4.2 mmol/L (3.5-5.5)
[2020-01-12] MEDS ORDERED: ALPR.25 PO (02:50)
--- NOTE | 2020-01-12 05:51 | NUR ---
SHIFT SUMMARY: PATIENT RECIEVED DIALYSIS, SOME IMPROVEMENT IN MENTAL STATUS; NOW OPENS EYES SPONTANEOUSLY AND MAKES EYE CONTACT, CAN ANSWER YES AND NO QUESTIONS INTERMITTENTLY. RESTRAINTS PLACED AT APPROX 0230 PATIENT CONTINUALLY THRASHING, TRYING TO GET OOB AND TAKING OFF EQUIPMENT AND IV'S, MD ORDER RECIEVED. BANDAGE ON PATIENTS RIGHT LEG CHANGED USING XEROFORM AND KERLEX WAS PREVIOUSLY DONE, SAME APPLIED TO VASCULAR BLISTERS ON LEFT LEG, PICTURES IN CHART. PATIENT WILL BE MOVED TO ROOM 10 FOR CLOSER OBSERVATION, BED ALARM ON WITH BED LOW AND LOCKED.
--- NOTE | 2020-01-12 06:30 | NUR ---
PATIENT UNABLE TO TOLERATE PO COUMADIN, MD KAHN NOTIFIED, ORDERS RECIEVED TO HOLD COUMADIN UNTIL PATIENT CAN TOLERATE PO AND AFTER CT CONFIRMS NO BLEED. PATIENT UNABLE TO STAY STILL, VERY CONFUSED, MD KAHN NOTIFIED, ORDERED TO WAIT UNTIL PATIENTS MENTATION IMPROVES LATER IN THE DAY.
[2020-01-12 07:05] LABS: Calcium, Ionized (POC) 1.11 mmol/L (1.10-1.46); Chloride (POC) 94 mmol/L (98-108); Creatinine (POC) 6.2 mg/dL (0.6-1.0); Glucose (ISTAT POC) 130 mg/dL (70-99); Hemoglobin (POC) 12.9 g/dL (12.0-16.0); Potassium (POC) 6.1 mmol/L (3.5-5.5); Sodium (POC) 130 mmol/L (135-148); Total CO2 (POC) 28 mmol/L (21-32)
--- NOTE | 2020-01-12 07:33 | NUR ---
AM ASSESSMENT: Pt pulling on restraints with arms, kicking legs and rubbing her feet on the bed. Pt appears uncomfortable. Moaning. Opens eyes to her name being said and looks at people, but does not respond other then moaning. Permacath to R chest wall with dressing intact. Plan for dialysis today. Dressings to BLE intact. 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 Sutures look intact with xeraform dressing and kerlex wrap. Cap refil < 3 sec but pulses in feet were not able to be palpated. Murmur noted, HR irregular. LS diminished. Will monitor. Bed alarm on.
--- NOTE | 2020-01-12 09:15 | NUR ---
Pt taken to dialysis via bed.
--- NOTE | 2020-01-12 11:12 | NUR ---
Received call from career services director Shira. Shira reports Pt's daughter reports Pt's wishes are to be DNR. Code Status has been changed to reflect wishes. Pt's family would benefit from discussion regarding completing new POLST. Pt currently receiving dialysis. Pt is confused and appears significantly agitated as evidenced by constant attempts of climbing out of bed and constant movement of her lower extremities. Spoke with hvac residential service technician Zoraida who reports providing care for Pt at dialysis center. Zoraida reports Pt has discussed her wishes on several occasions of not wanting to continue dialysis. Called and spoke with Pt's daughter Reina. Confirmed Pt's wishes to be DNR with no intubations. Completed new POLST over the phone reflecting Pt's wishes. Educated on life sustaining measures and treatment options. Bethany Reed RN witnesses conversation via speaker phone to confirm wishes. Engaged in therapeutic discussion regarding report of Pt no longer wanting dialysis. Reina reports Pt has had brief jenny discussions reporting she is nearing the end. Discussed hospice as an option. Reina reports intention to have conversation with Pt at a later time regarding her wishes to stop dialysis. Instructed Reina to call Palliative Care for any questions or concerns. Reina expresses appreciation of call. Spoke with Pt's bedside RN, discussed case and new POLST. New POLST will need to be signed by hospitalist. Palliative Care will remain available as needed.
--- NOTE | 2020-01-12 12:15 | NUR ---
UPDATE: Pt back to room from dialysis at around 1130. Still very agitated and anxious in appearance. Wrist restraints intact. Physician called for anxiety medication prior to imaging exams. Pt was given Ativan prior to Head CT and abd ultrasound. Pt left via gurney with transport for head CT. Will await return.
--- NOTE | 2020-01-12 18:02 | NUR ---
shift summary: Pt laying in bed. VSS this shift. Pt had dialysis this AM. Pt has remained confused and does not respond to questions or follow directions. Pt has become more alert however. Pt has been moaning and kicking her legs throughout the shift. Has remained in soft wrist restraints with all side rails up for safety. IV clinimix running per orders. Head CT and ABD Ultrasound done this shift. Pt was treated for appearance of pain with tylenol and was treated with requip for what appeared to be restless legs. No other changes. Will report to night RN.
--- NOTE | 2020-01-12 21:07 | NUR ---
2000 pt very confused and unable to follow and redirections; pt attempting climb OOB, pulling at telemetry/oxygen frequently with nursing in room to reposition and reapply bilateral wrist restraints; pt yelling and screaming out loudly.
--- NOTE | 2020-01-13 04:20 | NUR ---
SHIFT SUMMARY: 84 Y/O MORBID OBESE FEMALE HAD VERY RESTLESS NIGHT ENTIRE SHIFT; PATIENT ALERT AND ORIENTED X 1 AND UNABLE TO FOLLOW AND REDIRECTIONS FROM NURSING STAFF; PT YELLING AND SCREAMING ALL NOC WHILE THROWING LEGS ONTO SIDE RAILS AND ATTEMPTING TO PULL AT LINES/TELEMETRY/O2; PT MAINTAINED BILATERAL WRIST RESTRIANTS FOR SAFETY; HALDOL 5MG IVP X 1 GIVEN WITH MINIMAL AFFECTS NOTED; PTS BILATERAL LOWER EXTREMITIES DRESSING WERE REINFORCED WITH ELSY WRAP DRESSINGS (NO DRAINAGE ON KERLIX WRAPS TO BOTH SITES NOTED; PT INCONTINENT BOWEL/BLADDER; CLINIMAX INFUSING AT 75ML/HR; RIGHT UPPER CHEST PERMACATH PORT DRESSING DRY AND INTACT; CONTACT ISOLATION MAINTAINED FOR MRSA; BED ALARM APPLIED WITH BED LOW POSITION AND CALL LIGHT AT SIDE.
[2020-01-13 07:29] LABS: BASOPHILS ABSOLUTE AUTO 0.08 K/mm3 (0.00-0.23); BASOPHILS PERCENT AUTO 1 % (0-2); EOSINOPHILS ABSOLUTE AUTO 0.05 K/mm3 (0.00-0.68); EOSINOPHILS PERCENT AUTO 1 % (0-6); Hematocrit 41.4 % (33.0-51.0); Hemoglobin 12.7 g/dL (11.5-16.0); IMMATURE GRAN ABSOLUTE AUTO 0.02 K/mm3 (0.00-0.10); IMMATURE GRAN PERCENT AUTO 0 % (0-1); LYMPHOCYTES ABSOLUTE AUTO 1.39 K/mm3 (0.84-5.20); LYMPHOCYTES PERCENT AUTO 17 % (21-46); MONOCYTES ABSOLUTE AUTO 1.04 K/mm3 (0.16-1.47); MONOCYTES PERCENT AUTO 13 % (4-13); Mean Corpuscular HGB 26.2 pg (26.0-34.0); Mean Corpuscular HGB Conc 30.7 g/dL (31.5-36.5); Mean Corpuscular Volume 86 fL (80-100); NEUTROPHILS ABSOLUTE AUTO 5.61 K/mm3 (1.96-9.15); NEUTROPHILS PERCENT AUTO 69 % (41-73); Platelet Count 62 K/mm3 (150-400); RDW Coefficient Variation 18.6 % (11.7-14.2); RDW Standard Deviation 56.4 fL (35.1-46.3); Red Blood Cell Count 4.84 M/mm3 (3.80-5.20); White Blood Cell Count 8.19 K/mm3 (4.00-11.30)
--- NOTE | 2020-01-13 07:35 | NUR ---
ASSUMED CARE: PT CONSTANTLY MOANS, BILATERAL WRIST RESTRAINTS, CONFUSED. DIALYSIS NURSE PLANS TO WORK ON HER IN THE ROOM AFTER LUNCH. GRAIN ELEVATOR AGENT AT BEDSIDE AT THIS TIME.
[2020-01-13 07:50] LABS: Albumin, Blood 3.4 g/dL (3.4-5.0); Anion Gap 11 mmol/L (6-16); Blood Urea Nitrogen 71 mg/dL (8-24); Bun/Creatinine Ratio 15.8 (12.0-20.0); CO2, Blood 27 mmol/L (21-32); Calcium, Blood 9.9 mg/dL (8.5-10.1); Chloride, Blood 97 mmol/L (98-108); Creatinine, Blood 4.49 mg/dL (0.40-1.00); Glomerular Filtration Rate 10 (60-); Glucose, Blood 148 mg/dL (70-99); Magnesium, Blood 2.2 mg/dL (1.6-2.4); Phosphorus, Blood 6.5 mg/dL (2.5-4.9); Potassium, Blood 5.1 mmol/L (3.5-5.5); Sodium, Blood 135 mmol/L (136-145)
--- NOTE | 2020-01-13 09:51 | NUR ---
DR BARRERA CAME TO SEE PT AND THIS RN REQUESTED PAIN MEDICATIONS. PT STATED ONCE THAT SHE WAS IN PAIN BUT ONLY ONE WORD ANSWERS IF SHE ANSWERS WITH WORDS AT ALL. MAJORITY OF COMMUNICATION IS THROUGH MOANS. SPEECH THERAPY ASSISTED WITH REPOSITIONING BUT STATED PT WAS TOO CONFUSED FOR EVALUATION. MEDICATED FOR PAIN, PT MOANING LESS BUT STILL WRESTLESS IN BED. FREQUENT REPOSITIONING REQUIRED.
--- NOTE | 2020-01-13 14:21 | NUR ---
PT HAS BEEN OUT OF WRIST RESTRAINTS SINCE 1030 AM. APPEARS LESS AGITATED WITHOUT THEM BECAUSE SHE IS ABLE TO ROLL FROM SIDE TO SIDE. SATTING LOW 90S ON RA. DIALYSIS NURSE AT BEDSIDE AT THIS TIME. NO ACUTE NEEDS OR CONCERNS.
--- NOTE | 2020-01-13 15:30 | NUR ---
SPOKE WITH NURSE AT [facility] ABOUT PT'S BASELINE. NURSE STATED THAT PT IS NORMALLY ALERT AND ORIENTED X2, CAN ANSWER QUESTIONS AND CARRY A CONVERSATION BUT MAY BE CONFUSED AND NEED REDIRECTING IN CONVERSATION. NURSE STATES THE ONLY TIME SHE WAS MOANING AND YELLING OUT WAS WHEN SHE HAD A BAD DREAM. STATES PT IS BED BOUND AND WOULD REQUIRE 2 ASSIST TO GET INTO WHEEL CHAIR. ALSO STATES THAT ATIVAN MAKES PT VERY LETHARGIC TO THE POINT OF SLEEPING FOR 24 HOURS BUT HAS BEEN GIVEN WHEN EXTREMELY ANXIOUS BEFORE DIALYSIS. STATES PT'S BP RUNS LOW ON DIALYSIS DAYS. DIALYSIS NURSE AWARE AND STILL AT BEDSIDE WITH PT.
--- NOTE | 2020-01-13 18:39 | NUR ---
SHIFT SUMMARY: PT'S SPEECH MORE CLEAR THIS AFTERNOON. SHE IS ABLE TO ANSWER YES/NO QUESTIONS MORE APPROPRIATELY AND SOME COMPLETE SENTENCES. HOWEVER, SHE STILL YELLS OUT AND MOANS FREQUENTLY. JOSE HOPE RN STATED PT'S BASELINE IS MORE ORIENTED. OUT OF RESTRAINTS DUE TO BEING MORE CALM WHEN ABLE TO MOVE SIDE TO SIDE
--- NOTE | 2020-01-13 21:49 | NUR ---
PATIENT RESTING IN BED ON 3.5 L O2 NC. PATIENT PULLS O2 OFF AT TIMES. RT IN AND REPORTS CPAP ORDER FOR PRN ONLY. AXO TO SELF. WILL CONTINUE TO MONITOR.
--- NOTE | 2020-01-13 23:00 | NUR ---
BED ALARM EXIT ATTEMPTS X TEN. PATIENT NOT ABLE TO REORIENT AT THIS TIME. PATIENT YELLING AND SCREAMING. NOT COOPERATIVE WITH CARE PULLING AT LINES AND CORDS. BED ALARM ACTIVATED. WILL CONTINUE TO MONITOR.
--- NOTE | 2020-01-14 00:08 | NUR ---
PATIENT CONTINUES TO CALL OUT YELLING. PATIENT HAVING MORE MULTIPLE BED EXIT ATTEMPTS ACTIVATING BED ALARM. CBG Q6: 127. ON 4L O2 NC. PULLS OFF O2 NC AND CONTINUE PULSE OXIMETRY PROBE. WILL CONTINUE TO MONITOR.
--- NOTE | 2020-01-14 04:18 | NUR ---
SHIFT SUMMARY PATIENT HAD NO ACUTE CHANGES OBSERVED. AXOX TO SELF MOANING AND YELLING T/O SHIFT. PATIENT NOT ABLE TO ORIENTED AND FOLLOW DIRECTIONS. BED EXITS ATTEMPTS OVER FIFTEEN TIMES ACTIVATING BED ALARM. TOOK MEDICATION CRUSHED IN . PIV REMAINS INTACT. IV CLINIMIX INFUSING AT 75 mL/HR. ON 4L O2 NC. PATIENT PULLS O2 OFF AND PULLS PULSE OXIMETRY OFF DESTATING INTO THE 70-80'S. SWINGS LEGS OVER THE SIDE RAIL T/O SHIFT. PERMA CATH [facility] C/D/I. CONTACT PRECAUTIONS. CALL LIGHT IN REACH. BED IN LOWEST POSITION. WILL CONTINUE TO MONITOR UNTIL DAY SHIFT NURSE ASSUMES CARE.
[2020-01-14 05:14] LABS: Hematocrit 41.8 % (33.0-51.0); Hemoglobin 12.7 g/dL (11.5-16.0)
[2020-01-14 05:31] LABS: Albumin, Blood 3.2 g/dL (3.4-5.0); Anion Gap 10 mmol/L (6-16); Blood Urea Nitrogen 55 mg/dL (8-24); Bun/Creatinine Ratio 14.6 (12.0-20.0); CO2, Blood 27 mmol/L (21-32); Calcium, Blood 9.6 mg/dL (8.5-10.1); Chloride, Blood 96 mmol/L (98-108); Creatinine, Blood 3.77 mg/dL (0.40-1.00); Glomerular Filtration Rate 12 (60-); Glucose, Blood 142 mg/dL (70-99); Magnesium, Blood 2.2 mg/dL (1.6-2.4); Phosphorus, Blood 6.1 mg/dL (2.5-4.9); Potassium, Blood 4.5 mmol/L (3.5-5.5); Sodium, Blood 133 mmol/L (136-145)
--- NOTE | 2020-01-14 07:51 | NUR ---
The pt pulled out her Powerglide on noc shift. I made 2 attempts to start a peripheral IV, without success. The pt is answering questions most of the time when spoken to, but is often agitated and crying out "help me" when she is alone in the room. States that she has pain "all over".
--- NOTE | 2020-01-14 08:14 | NUR ---
ASSUMED CARE AT 0700, LAYING FLAT ON RIGHT SIDE. A/A/OX1, REPORT FROM ADRYAN OH. MOVING AND WRESTLESS IN BED. KICKING FEET AND LEGS UP OVER BED RAILS. PER PREVIOUS RN WAS SIMILAR ALL DURING NIGHT. IV PULLED OUT BY PT PRIOR TO SHIFT CHANGE. DOUGHNUT MACHINE OPERATOR HELPER IN PT ROOM TO ATTEMPT IV. 2 ATTEMPTS WITH NO SUCCESS, WILL SPEAK WITH PROVIDER REGARDING NEED FOR CONTINUATION OF IV THERAPY. ANSWERS YES OR NO QUESTIONS AT THIS TIME. ATTENDS IN PLACE AND DRY. PERMICATH TO RIGHT CHEST. MULTIPLE BRUSISES AND EXCORATIONS TO ARMS AND LEGS IN MULTIPLE STAGES OF HEALING. LOWER LEGS WRAPPED WITH ELSY WRAP, KERLEX AND NON ADHEARENT ON LOWER LEG RAW AREAS BILATERALLY. RIGHT 5TH TOE AMPUTATION. LEGS WARM AND DRY BILATERALLY CAP REFILL ,3. REDRESSED LOWER LEGS, WILL CONTINUE TO MONITOR.
--- NOTE | 2020-01-14 09:52 | NUR ---
TAKEN TO DIALYSIS AT THIS TIME, AM MEDS TO BE GIVEN WHEN PT RETURNS.
--- NOTE | 2020-01-14 15:30 | NUR ---
pT TRANSFERRED TO ROOM FROM U 1530 PT CALLING OUT. CONFUSED. CALLED FOR RT TO BRING CPAP AND CONT BIOX. PT IN BED. BED IN LOW POSITION,C ALL LITE IN REACH, BED ALARN ON FOR SAFETY
--- NOTE | 2020-01-14 18:19 | NUR ---
REPORT FROM RT. DERRICK STATES PT HAS BEEN TEARING OFF CPAP. WOULD NEED RESTRAINTS, THEREFORE WOULD REQUIRE ICU FOR CONSTANT MONITORING.
--- NOTE | 2020-01-14 18:40 | NUR ---
PT CONFUSED, PULLING O2 LINE REGULARLY, KICKING OFF CONT BIOX. MOVED TO FOOT. CONSTANTLY REMINDINGPT TO KEEP O2 ON. DROPS TO MID 70'S WHEN OFF. GAVE SEROQUIL. SEEMS TO BE RELAXING SOME SINCE. ALERT TO SELF SOME WHAT. BED IN LOW POSITION, CALL LITE IN REACH, BED ALARM ON FOR SAFETY
--- NOTE | 2020-01-14 20:10 | NUR ---
1929 REPORT RECEIVED FROM ADRYAN [place]; PT ALERT AND ORIENTED X 1; PT UNABLE TO FOLLOW ANY SIMPLE VERBAL COMMANDS AND REQUIRES FREQUENT REORIENTATION BY STAFF; PT REMOVING O2, GOWN AND TURNING BACK AND FORTH IN BED; BED ALARM APPLIED.
--- NOTE | 2020-01-15 04:07 | NUR ---
SHIFT SUMMARY: 84 Y/O OBESE FEMALE RESTED WELL LAST 1/2 SHIFT (PT WAS VERY RESTLESS FOR FIRST 1/2 WITH PATIENT SWINGING LEGS OVER SIDE OF BED AND TURNING BACK AND FORTH NUMEROUS TIMES IN BED; PT WEARING O2 AT 3L/M PER NASAL CANNULA WITH SATS AVERAGING 92%; PT ALERT AND ORIENTED X 1, UNABLE TO FOLLOW ANY SIMPLE VERBAL COMMANDS; PT LIKES TO NOT WEAR GOWN DURING SHIFT AND COVERS SELF WITH TOP SHEET ONLY; PTS BILATERAL LOWER LEG ELSY WRAP DRESSINGS ARE DRY AND INTACT; PT HAS SCATTERED ECCHYMOTIC BRUISING THROUGHOUT BILATERAL UPPER ARMS NOTED; BED ALARM APPLIED WITH CALL LIGHT AT SIDE.
--- NOTE | 2020-01-15 07:25 | NUR ---
Remote monitoring Patient placed on remote monitoring for safety. This was verified with Andra in remote monitoring. Nursing On Site Services Specialist Dontae burger.
[2020-01-15 07:36] LABS: Anion Gap 7 mmol/L (6-16); Blood Urea Nitrogen 48 mg/dL (8-24); Bun/Creatinine Ratio 12.5 (12.0-20.0); CO2, Blood 32 mmol/L (21-32); Calcium, Blood 9.5 mg/dL (8.5-10.1); Chloride, Blood 97 mmol/L (98-108); Creatinine, Blood 3.84 mg/dL (0.40-1.00); Glomerular Filtration Rate 12 (60-); Glucose, Blood 94 mg/dL (70-99); Magnesium, Blood 2.4 mg/dL (1.6-2.4); Phosphorus, Blood 6.1 mg/dL (2.5-4.9); Potassium, Blood 4.1 mmol/L (3.5-5.5); Sodium, Blood 136 mmol/L (136-145)
--- NOTE | 2020-01-15 09:07 | NUR ---
Patient is obtunded, open eyes to loud verbal stimuli but drifts back to sleep. Very drowsy, and L sided facial droop noted. Dr. Tra allen, will put orders in.
[2020-01-15 09:38] LABS: PCO2 Arterial 55.5 mmHg (35-45); PO2 Arterial 85.4 mmHg (80-100); pH Blood Arterial 7.36 (7.35-7.45)
--- NOTE | 2020-01-15 12:01 | NUR ---
Blood Sugar Checks Patient no longer receiving Clinimix. Per Dr. Dutta, DAYANARA and insulin d/c.
--- NOTE | 2020-01-15 17:24 | NUR ---
Shift Summary A/Ox1, has been lethargic this morning and remains so, mentation seems to be clearing up but very slowly. Open eyes to verbal stimuli and has been swinging legs out of bed, but not talking much yet. Morning meds have been held d/t lethargy. Remains on 2L O2 via NC saturating >99%. Dressings in BLE have been changed and wrapped in ELSY bandage. No other acute changes, will continue to monitor.
[2020-01-15] MEDS ORDERED: Feverall650 MG PR (23:59)
[2020-01-16] MEDS ORDERED: FLEET ENEMA133 ML PR (00:02)
[2020-01-16] MEDS ORDERED: BISA10S PR (00:02)
[2020-01-16] MEDS ORDERED: LOPE2C PO (00:04)
[2020-01-16] MEDS ORDERED: PROM25S PR (00:06)
[2020-01-16] MEDS ORDERED: PROM25 PO (00:07)
--- NOTE | 2020-01-16 04:50 | NUR ---
SHIFT SUMMARY PT REMAINED LETHARGIC FOR FIRST PART OF SHIFT. PT WOULD WAKE BUT WOULD FALL BACK ASLEEP QUICKLY. EVENING MEDS HELD DUE TO THIS. SLOWLY THROUGHOUT THE NIGHT PT BECAME MORE ALERT. AT APPROX 0200 PT WAS ALERT AND WAS REQUESTING SOMETHING TO DRINK. SAT PT UP IN BED AND PT DID WELL DRINKING ONE GLASS OF NECTAR THICK WATER AND ONE OF NECTAR THICK APPLE JUICE. PT REQUESTED SOME FOOD. PUREED PEACHES AND YOGURT PROVIDED. PT ATE BOTH. PT ONCE AWAKE WAS COMPLAINING OF PAIN "EVERYWHERE". MEDICATED X 1 WITH TYLENOL. PT TOLERATED WELL CRUSHED IN APPLESAUCE. PT COMPLAINING OF NOSTRILS BEING PLUGGED. TISSUE AND Q TIP USED TO CLEAN OUT NOSTRILS. LOTS OF DRY MUCUS. HUMIDITY PLACED TO O2. PT REMAINED ON 2 L WITH O2 SATS IN THE HIGH 90'S. VITAL SIGNS STABLE. WILL CONTINUE TO MONITOR AND REPORT TO DAY RN.
[2020-01-16 05:24] LABS: Hematocrit 39.1 % (33.0-51.0); Hemoglobin 11.9 g/dL (11.5-16.0)
[2020-01-16 05:40] LABS: Anion Gap 7 mmol/L (6-16); Blood Urea Nitrogen 60 mg/dL (8-24); Bun/Creatinine Ratio 12.6 (12.0-20.0); CO2, Blood 32 mmol/L (21-32); Calcium, Blood 9.1 mg/dL (8.5-10.1); Chloride, Blood 97 mmol/L (98-108); Creatinine, Blood 4.75 mg/dL (0.40-1.00); Glomerular Filtration Rate 9 (60-); Glucose, Blood 154 mg/dL (70-99); Magnesium, Blood 2.3 mg/dL (1.6-2.4); Phosphorus, Blood 7.1 mg/dL (2.5-4.9); Potassium, Blood 4.2 mmol/L (3.5-5.5); Sodium, Blood 136 mmol/L (136-145)
--- NOTE | 2020-01-16 08:44 | NUR ---
PT IS FEEDING HERSELF TODAY.
--- NOTE | 2020-01-16 16:56 | NUR ---
PT IS A/OX3, PLEASANT AND COOPERATIVE, THE PT IS BEDREST AT THIS TIME, THE PT HAS BEEN MUCH MORE AWAKE AND ALERT COMPARED TO YESTERDAY, THE PT HAS AHD A GOOD APPETITE, PT HAS HAD SOME COUGHING WITH SIPS, SPEECH THERAPIST REEVALUATED AND CHANGED THE FEEDING PLAN, PT HAD DIALYSIS TODAY AND TOLERATED IT WELL, THE PT BLE WOUNDS WERE REDRESSED AND THE PT TOLERATED IT WELL, PT APPEARS TO BE BREATHING EASILY ON O2 @ 2L/MIN, CALL LIGHT IN REACH, BED ALARM ON, CONTINUOUS BIOX ON
--- NOTE | 2020-01-17 05:23 | NUR ---
SHIFT SUMMARY: VSS. AFEB. AAO TO SELF AND SURROUINDINGS. GENERALLY CONFUSED ABOUT HER SITUATION. SPEAKING IN COMPLETE SENTENCES. CALLS OUT RATHER THAN USES CALL BUTTON. MOANS INTERMITTENTLY W/ NO CLEAR REASON. TYL GIVEN X 1 FOR BLE PAIN W/ NO CHANGE IN MOANING. PT HAS REMAINED AWAKE FOR THE MAJORITY OF THE NIGHT. MOOD IS CALM AND REDIRECTABLE. MOVING AROUND IN BED, SITTING UP FREQUENTLY PERSEVERATING ON HER FEET, THE BANDAGES ON HER LEGS, AND WORRIED ABOUT FEET GETTING CLOSE TO THE FOOT OF THE BED. REPEATEDLY REMOVES NC. FOUND TO BE OFF EACH TIME STAFF ENTER ROOM. 02 SATS RANGING FROM 87-94% ON RA. ENCOURAGED PT TO WEAR NC. NO VOID TONIGHT. OLIGURIC. PERMACATH ON R UPPER CHEST W/DRESSING CDI AND NO ERYTHEMA. NO ACUTE CHANGES TONIGHT. BED LOW, CALL BUTTON IN REACH. BED ALARM ON.
[2020-01-17 05:39] LABS: Hematocrit 39.2 % (33.0-51.0); Hemoglobin 11.7 g/dL (11.5-16.0)
[2020-01-17 06:02] LABS: Albumin, Blood 3.3 g/dL (3.4-5.0); Anion Gap 5 mmol/L (6-16); Blood Urea Nitrogen 40 mg/dL (8-24); Bun/Creatinine Ratio 10.4 (12.0-20.0); CO2, Blood 32 mmol/L (21-32); Calcium, Blood 8.8 mg/dL (8.5-10.1); Chloride, Blood 102 mmol/L (98-108); Creatinine, Blood 3.84 mg/dL (0.40-1.00); Glomerular Filtration Rate 12 (60-); Glucose, Blood 122 mg/dL (70-99); Magnesium, Blood 2.2 mg/dL (1.6-2.4); Phosphorus, Blood 4.6 mg/dL (2.5-4.9); Sodium, Blood 139 mmol/L (136-145)
[2020-01-17] MEDS ORDERED: GABA100 PO (17:58)
--- NOTE | 2020-01-17 17:58 | NUR ---
PATIENT DISCHARGE AT 17:50
[2020-01-17] MEDS ORDERED: SERT50 PO (18:03)
== END 2020-01-17 17:50 | DRG 291 ==
LOC: ER 22:43 → PCU 22:44 → MEDS 01-14 15:23
PROVIDERS: Emergency Medicine; Internal Medicine; Internal Medicine Nephrology; Nurse Practitioner Acute Care; ADMIT Family Medicine
DX: I13.2 Hypertensive heart and chronic kidney disease with heart failure and with stage 5 chronic kidney disease, or end stage renal disease (principal); G92 Toxic encephalopathy; N18.6 End stage renal disease; I48.20 Chronic atrial fibrillation, unspecified; N25.81 Secondary hyperparathyroidism of renal origin; Z68.41 Body mass index [BMI] 40.0-44.9, adult; E87.1 Hypo-osmolality and hyponatremia; J96.12 Chronic respiratory failure with hypercapnia; I50.42 Chronic combined systolic (congestive) and diastolic (congestive) heart failure; Z95.2 Presence of prosthetic heart valve; Z79.4 Long term (current) use of insulin; K21.9 Gastro-esophageal reflux disease without esophagitis; E03.9 Hypothyroidism, unspecified; E11.40 Type 2 diabetes mellitus with diabetic neuropathy, unspecified; G47.33 Obstructive sleep apnea (adult) (pediatric); E11.22 Type 2 diabetes mellitus with diabetic chronic kidney disease; Z79.01 Long term (current) use of anticoagulants; M10.9 Gout, unspecified; I34.0 Nonrheumatic mitral (valve) insufficiency; E87.5 Hyperkalemia; E88.09 Other disorders of plasma-protein metabolism, not elsewhere classified; G25.81 Restless legs syndrome; E87.70 Fluid overload, unspecified; E66.01 Morbid (severe) obesity due to excess calories; D69.6 Thrombocytopenia, unspecified; Z66 Do not resuscitate; R16.1 Splenomegaly, not elsewhere classified; E83.39 Other disorders of phosphorus metabolism; Z99.2 Dependence on renal dialysis; Z89.422 Acquired absence of other left toe(s)
CPT/HCPCS: 36415; 36600; 70450; 71045; 76705; 80047; 80053; 80069; 82140; 82330; 82803; 82947; 83735; 84132; 84443; 84484; 85014; 85018; 85025; 85610; 92526; 92610; 93005; 93010; 93306; 94760; 94762; 96374; 99285-25; A9270; A9270-GY; G0378; J1630; J1815; J2060; J3010

== ENCOUNTER 2020-02-07 08:23 | Emergency (ER) | payer OTHER ==
[~2020-02-07] VITALS: Ht 162.6 cm; Wt 90.7 kg
[~2020-02-07 08:23] MED LIST changes: +ALPR.25 PO; +FLEET ENEMA133 ML PR; +Feverall650 MG PR; +PROM25 PO; +PROM25S PR
[2020-02-07] MEDS ORDERED: HUMALOG JU100 UNIT/2 SQ (10:00)
[2020-02-07 11:05] LABS: BASOPHILS ABSOLUTE AUTO 0.03 K/mm3 (0.00-0.23); BASOPHILS PERCENT AUTO 1 % (0-2); EOSINOPHILS ABSOLUTE AUTO 0.18 K/mm3 (0.00-0.68); EOSINOPHILS PERCENT AUTO 4 % (0-6); Hematocrit 36.7 % (33.0-51.0); Hemoglobin 11.3 g/dL (11.5-16.0); IMMATURE GRAN ABSOLUTE AUTO 0.02 K/mm3 (0.00-0.10); IMMATURE GRAN PERCENT AUTO 1 % (0-1); LYMPHOCYTES ABSOLUTE AUTO 0.97 K/mm3 (0.84-5.20); LYMPHOCYTES PERCENT AUTO 23 % (21-46); MONOCYTES ABSOLUTE AUTO 0.39 K/mm3 (0.16-1.47); MONOCYTES PERCENT AUTO 9 % (4-13); Mean Corpuscular HGB Conc 30.8 g/dL (31.5-36.5); Mean Corpuscular Volume 88 fL (80-100); NEUTROPHILS ABSOLUTE AUTO 2.59 K/mm3 (1.96-9.15); NEUTROPHILS PERCENT AUTO 62 % (41-73); Platelet Count 78 K/mm3 (150-400); RDW Coefficient Variation 19.4 % (11.7-14.2); RDW Standard Deviation 61.7 fL (35.1-46.3); Red Blood Cell Count 4.19 M/mm3 (3.80-5.20); White Blood Cell Count 4.18 K/mm3 (4.00-11.30)
[2020-02-07 11:18] LABS: International Normalized Ratio 1.57; Prothrombin Time Results 16.4 Sec (9.7-11.5)
== END 2020-02-07 12:17 | disposition home or self-care (01) ==
LOC: ER 08:23
PROVIDERS: Physician Assistant
DX: S01.81XA Laceration without foreign body of other part of head, initial encounter (principal); Z88.0 Allergy status to penicillin; Z88.7 Allergy status to serum and vaccine; Z88.1 Allergy status to other antibiotic agents; Z88.8 Allergy status to other drugs, medicaments and biological substances; Z79.899 Other long term (current) drug therapy; E11.40 Type 2 diabetes mellitus with diabetic neuropathy, unspecified; I48.91 Unspecified atrial fibrillation; E03.9 Hypothyroidism, unspecified; I13.0 Hypertensive heart and chronic kidney disease with heart failure and stage 1 through stage 4 chronic kidney disease, or unspecified chronic kidney disease; N18.9 Chronic kidney disease, unspecified; I50.9 Heart failure, unspecified; E11.22 Type 2 diabetes mellitus with diabetic chronic kidney disease; G47.30 Sleep apnea, unspecified; W05.0XXA Fall from non-moving wheelchair, initial encounter
CPT/HCPCS: 12014; 70450; 72125; 85025; 85610; 99284-25

== ENCOUNTER 2020-02-17 08:57 | Inpatient (IN) | payer OTHER ==
[~2020-02-17] VITALS: Ht 177.8 cm; Wt 106.8 kg
[~2020-02-17 08:57] MED LIST changes: +HUMALOG JU100 UNIT/2 SQ
[2020-02-17] MEDS ORDERED: GABA400 PO (09:28)
[2020-02-17] MEDS ORDERED: LEVSOD112 PO (09:29)
[2020-02-17] MEDS ORDERED: PANT40 PO (09:29)
[2020-02-17] MEDS ORDERED: SERT50 PO (09:30)
[2020-02-17] MEDS ORDERED: WARF4 PO (09:31)
[2020-02-17] MEDS ORDERED: ROPI1 PO (09:31)
[2020-02-17 09:32] LABS: BASOPHILS ABSOLUTE AUTO 0.05 K/mm3 (0.00-0.23); BASOPHILS PERCENT AUTO 1 % (0-2); EOSINOPHILS ABSOLUTE AUTO 0.16 K/mm3 (0.00-0.68); EOSINOPHILS PERCENT AUTO 3 % (0-6); Hematocrit 36.2 % (33.0-51.0); Hemoglobin 11.2 g/dL (11.5-16.0); IMMATURE GRAN ABSOLUTE AUTO 0.02 K/mm3 (0.00-0.10); IMMATURE GRAN PERCENT AUTO 0 % (0-1); LYMPHOCYTES ABSOLUTE AUTO 0.87 K/mm3 (0.84-5.20); LYMPHOCYTES PERCENT AUTO 19 % (21-46); MONOCYTES ABSOLUTE AUTO 0.57 K/mm3 (0.16-1.47); MONOCYTES PERCENT AUTO 12 % (4-13); Mean Corpuscular HGB Conc 30.9 g/dL (31.5-36.5); Mean Corpuscular Volume 87 fL (80-100); NEUTROPHILS ABSOLUTE AUTO 3.03 K/mm3 (1.96-9.15); NEUTROPHILS PERCENT AUTO 65 % (41-73); Platelet Count 89 K/mm3 (150-400); RDW Coefficient Variation 19.7 % (11.7-14.2); Red Blood Cell Count 4.15 M/mm3 (3.80-5.20)
[2020-02-17] MEDS ORDERED: HYDR1TAB94 PO (09:32)
[2020-02-17] MEDS ORDERED: ALBU90OI INH (09:32)
[2020-02-17 09:48] LABS: Albumin, Blood 2.9 g/dL (3.4-5.0); Albumin/Globulin Ratio 0.9 (0.8-1.8); Bilirubin, Total 1.2 mg/dL (0.1-1.0); Bun/Creatinine Ratio 13.9 (12.0-20.0); Calcium, Blood 9.2 mg/dL (8.5-10.1); Creatinine, Blood 6.32 mg/dL (0.40-1.00); Globulin, Blood 3.4 g/dL (2.2-4.0); Total Protein, Blood 6.3 g/dL (6.4-8.2)
[2020-02-17 09:53] LABS: Potassium, Blood 6.2 mmol/L (3.5-5.5)
--- NOTE | 2020-02-17 11:08 | NUR ---
HEMODIALYSIS ORDERED AND WILL COMMENSE WHEN PATIENT TRANSFERED TO FLOOR.
--- NOTE | 2020-02-17 12:02 | NUR ---
Report was received from ADRYAN Umana. Anticipate arrival of the pt to PCU 15 shortly. PCU 15 is just finishing up being cleaned.
--- NOTE | 2020-02-17 14:42 | NUR ---
Pt initially non verbal and no reponse. multiple face and chest bruises and hematoma to head. pt eyes crusted over. Rt in to give breathing treatment. pt eyes cruster. washe dpt face and slowly aroused her she was able after ahwile with some stimulus to respond. Notified her daughter genevieve that she was back in hospital. Daughter was tearfull on phone. Stated she has been telling her she is tired and wants to go. Pt daughter colaborated with doctor they are going to try two days a week. Physician in to see pt she is more verbal. Did assessment. she has a headache and aches all over her main complaint is nausea. Reassured her that she was safe and back in the hospital and her family knows she is here. Advised her vladimir form dialysis was here and we would get a little dislysis to help her. She became tearful and said she did not want it. Advised her I would have vladimir talk to her and that it may help. Pt moved to pcu on dialysis. Cries out but some tolerance. updated daugter on room number. Will speak with daughter about when to stop pt very frail and distraught. Will have dr donis and pt family talk. Suggest hospice as suffering is increasing ane pt declining and expressing stress at being on dialysis. polst on chart that is current from [facility]. pt dnr. pt npo has been hypoglycemic since more alert will request po inake.
--- NOTE | 2020-02-17 18:18 | NUR ---
SHIFT NOTE PT ARRIVED FROM ER THIS AFTERNOON WITH EXTENSIVE CONTUSIONS TO HER FACE. PT WITH AMS, PER DIALYSIS NURSE ALTHEA THIS LEVEL OF AMS HAS BEEN TYPICAL FOR THE PT IN RECENT VISITS. PT MOANING OUT "OH GOD" FLAILING AROUND IN BED. PT HAS RECEIVED DIALYSIS THIS AFTERNOON AFTER ARRIVING. PT HAS HAD 2 DOSES ON D50 WITH NO RISE IN BLOOD SUGAR. DR VILLA CALLED AND ORDER IS PLACED FOR D5 WHICH IS INFUSING AT THIS TIME. PCT HAVE CHANGED PTS ATTENDS AT THE TIME OF THIS NOTE. PT WITH ROUNDED ABD, THAT IS TENDER TO PALPATION, WITH HYPOACTIVE BOWEL TONES. DID ATTEMPT A BEDSIDE SWALLOW STUDY BUT PT IS NOT ABLE TO STAY AWAKE OR ALERT FOR 15 MINUTES, DR VILLA IS MADE AWARE OF THIS. KARTHIK FROM PALLIATIVE CARE HAS BEEN IN TO SEE HER
--- NOTE | 2020-02-17 23:59 | NUR ---
PT CALLING OUT IN ROOM. ALTERED MENTAL STATUS. PT CALLING OUT "OH GOD". PT ASKED WHAT WAS WRONG, PT UNABLE TO STATE PROBLEM. ASKED PT IF SHE WAS HOT OR COLD. PT REPORTED NO. ASKED PT IF IN PAIN, PT REPORTEED NO. PT ASKING FOR FOOD. PT EDUCATED THAT SHE WAS NPO. PT STARTED CALLING OUT "ANOTHER ONE WHO WONT LET ME FEED". PT REMINDED SHE HAD FALLEN AND HIT HEAD, AND THAT SHE HAD BEEN UNRESPONSIVE EARLIER SO DOCTOR MADE HER NPO. PT NOW CALLING OUT "DONT LET YOUR MOTHER HIT YOU". PT ORIENTED TO SELF AND PLACE. ABLE TO STATE SHE IS IN HOSPITAL, CANNOT STATE DATE OR TIME. UNABLE TO RECALL EVENT.
[2020-02-18 04:09] LABS: BASOPHILS ABSOLUTE AUTO 0.08 K/mm3 (0.00-0.23); BASOPHILS PERCENT AUTO 1 % (0-2); EOSINOPHILS ABSOLUTE AUTO 0.25 K/mm3 (0.00-0.68); EOSINOPHILS PERCENT AUTO 5 % (0-6); Hemoglobin 11.5 g/dL (11.5-16.0); IMMATURE GRAN ABSOLUTE AUTO 0.02 K/mm3 (0.00-0.10); IMMATURE GRAN PERCENT AUTO 0 % (0-1); LYMPHOCYTES ABSOLUTE AUTO 1.32 K/mm3 (0.84-5.20); LYMPHOCYTES PERCENT AUTO 24 % (21-46); MONOCYTES PERCENT AUTO 14 % (4-13); Mean Corpuscular HGB 26.4 pg (26.0-34.0); Mean Corpuscular HGB Conc 30.3 g/dL (31.5-36.5); Mean Corpuscular Volume 87 fL (80-100); NEUTROPHILS ABSOLUTE AUTO 3.14 K/mm3 (1.96-9.15); NEUTROPHILS PERCENT AUTO 56 % (41-73); Platelet Count 100 K/mm3 (150-400); RDW Coefficient Variation 19.9 % (11.7-14.2); RDW Standard Deviation 63.3 fL (35.1-46.3); Red Blood Cell Count 4.36 M/mm3 (3.80-5.20); White Blood Cell Count 5.61 K/mm3 (4.00-11.30)
[2020-02-18 04:26] LABS: Prothrombin Time Results 46.1 Sec (9.7-11.5)
[2020-02-18 04:28] LABS: Albumin, Blood 2.9 g/dL (3.4-5.0); Albumin/Globulin Ratio 0.9 (0.8-1.8); Bilirubin, Total 1.4 mg/dL (0.1-1.0); Bun/Creatinine Ratio 12.3 (12.0-20.0); Calcium, Blood 9.5 mg/dL (8.5-10.1); Creatinine, Blood 5.38 mg/dL (0.40-1.00); Globulin, Blood 3.4 g/dL (2.2-4.0); Magnesium, Blood 2.2 mg/dL (1.6-2.4); Phosphorus, Blood 5.4 mg/dL (2.5-4.9); Total Protein, Blood 6.3 g/dL (6.4-8.2)
[2020-02-18 04:31] LABS: International Normalized Ratio 4.7
--- NOTE | 2020-02-18 05:39 | NUR ---
SHIFT SUMMARY PT RESTING IN ROOM CALLING OUT OCCASIONALLY. PT HAS BEEN RESTLESS T/O NIGHT. CALLING OUT AND TALKING TO SELF. PT IS ALERT ONLY TO SELF. RESP EVEN UNLABORED ON RA W/ SATS >92%. PT HAS BRUSING T/O HEAD AND FACE D/T FALL. IV REMOVED FROM LW D/T POSSIBLE INFILTRATION. ARM RED AND WARM TO TOUCH. IVF INFUSING IN PIV IN RAC AT THIS TIME. PT INCONTINENT OF STOOL AND URINE. DOES NOT FOLLOW DIRECTIONS WELL. BED ALARM ON.
--- NOTE | 2020-02-18 09:10 | NUR ---
PT TO DIALYSIS. DR VILLA HAS BEEN CALLED ABOUT BLOOD SUGAR, NEW TELEPHONEORDERS ARE PLACED
--- NOTE | 2020-02-18 11:52 | NUR ---
PT IS NOW BACK FROM DIALYSIS
--- NOTE | 2020-02-18 16:25 | NUR ---
SHIFT NOTE PT WAS MOVED FROM PCU 15 TO PCU 10 SHE HAS BECOME MORE CONFUSED AND CALLING OUT, PT ATTEMPTS TO CLIMB OUT OF BED, IS KICKING LEGS AGAINST THE BED RAILS. AT THE BEGINING OF THE SHIFT IT IS NOTED THAT PT'S TOES AND BLEEDING FROM KICKING THE RAILS WITH HER FEET, SO SZ PADS OARE PLACED ON RAILING TO PREVENT INJURY FROM KICKING RAILS. PT HAS BEEN MEDICATED FOR PAIN T/O THE SHIFT WHICH HAS NOT SEEMED TO HAVE IMPROVED PAIN OR INCREASE COMFORT. VSS T/O THE SHIFT. PT PARANOID STS THAT STAFF IS KIDNAPPING HER TO KEEP HER AWAY FROM THE DR SEEING HER. HAS HAD DIALYSIS TODAY WHICH DID NOT SEEM TO IMPROVE HER AMS. PT HAS HAD NUMEROUS ATTEND CHANGES T/O THE DAY. PT REAMINS SCREAMING OUT "OH GOD" "HELP ME UP" AT THE TIME OF THIS NOTE
--- NOTE | 2020-02-18 16:34 | NUR ---
PT ATE AT VERY SMALL AMT OF PUREE DIET BEFORE REFUSING FOOD IT WAS "TOO SWEET"
--- NOTE | 2020-02-18 19:41 | NUR ---
pt tolerating dialysis. goal is to get her home see if she can do the twice a week dialysis if not will revisit hospice.
[2020-02-19 03:44] LABS: BASOPHILS ABSOLUTE AUTO 0.07 K/mm3 (0.00-0.23); BASOPHILS PERCENT AUTO 1 % (0-2); EOSINOPHILS ABSOLUTE AUTO 0.26 K/mm3 (0.00-0.68); EOSINOPHILS PERCENT AUTO 4 % (0-6); Hematocrit 38.9 % (33.0-51.0); Hemoglobin 11.7 g/dL (11.5-16.0); IMMATURE GRAN ABSOLUTE AUTO 0.01 K/mm3 (0.00-0.10); IMMATURE GRAN PERCENT AUTO 0 % (0-1); LYMPHOCYTES ABSOLUTE AUTO 1.68 K/mm3 (0.84-5.20); LYMPHOCYTES PERCENT AUTO 26 % (21-46); MONOCYTES ABSOLUTE AUTO 0.95 K/mm3 (0.16-1.47); MONOCYTES PERCENT AUTO 14 % (4-13); Mean Corpuscular HGB 26.5 pg (26.0-34.0); Mean Corpuscular HGB Conc 30.1 g/dL (31.5-36.5); Mean Corpuscular Volume 88 fL (80-100); NEUTROPHILS ABSOLUTE AUTO 3.61 K/mm3 (1.96-9.15); NEUTROPHILS PERCENT AUTO 55 % (41-73); Platelet Count 104 K/mm3 (150-400); RDW Coefficient Variation 19.9 % (11.7-14.2); Red Blood Cell Count 4.42 M/mm3 (3.80-5.20); White Blood Cell Count 6.58 K/mm3 (4.00-11.30)
[2020-02-19 04:01] LABS: Anion Gap 7 mmol/L (6-16); Blood Urea Nitrogen 48 mg/dL (8-24); Bun/Creatinine Ratio 10.2 (12.0-20.0); CO2, Blood 32 mmol/L (21-32); Calcium, Blood 9.8 mg/dL (8.5-10.1); Chloride, Blood 99 mmol/L (98-108); Glomerular Filtration Rate 9 (60-); Glucose, Blood 135 mg/dL (70-99); Magnesium, Blood 2.1 mg/dL (1.6-2.4); Phosphorus, Blood 5.1 mg/dL (2.5-4.9); Potassium, Blood 4.6 mmol/L (3.5-5.5); Sodium, Blood 138 mmol/L (136-145)
[2020-02-19 04:03] LABS: Prothrombin Time Results 47.9 Sec (9.7-11.5)
[2020-02-19 04:05] LABS: International Normalized Ratio 4.9
--- NOTE | 2020-02-19 05:10 | NUR ---
SHIFT SUMMARY PT RESTING COMFORTABLY IN ROOM AT THIS TIME. PT HAS BEEN RESTLESS AND AGGITATED T/O NIGHT CALLING OUT AND YELLING IN ROOM. PT LOST IV ACCESS AND MULTIPLE ATTEMPTS WERE MADE FOR NEW ACCESS. PT WAS PLACED IN RESTRAINTS FOR A TIME TO KEEP IV ACCESS SECURE. PT BECAME MUCH MORE AGGITATED IN RESTRAINTS. DEXTROSE 5% WAS INFUSING, PER HOSPITALIST OK TO STOP DEXTROSE TO ALLOW PT OUT OF RESTRAINTS TO REDUCE AGGITATION. PT WAS MEDICATED FOR AGGITATION TWICE, NO IMPROVEMENT. RESP EVEN UNLABORED ON RA W/ SATS >92%. PT DENIED PAIN WHEN ASKED, PT YELLS NEEDS, THEN CHANGES MIND QUICKLY. CALL LLIGHT IN REACH. BED ALAMR ON, SEIZURE PADS IN PLACE TO PREVENT PT FROM INJURING FEET KICKING RAILS.
--- NOTE | 2020-02-19 08:45 | NUR ---
PT FALLING ASLEEP WILL NOT STAY AWAKE FOR SAFE FOOD OR MEDCIATION ADMINISTARTION
--- NOTE | 2020-02-19 15:55 | NUR ---
SHIFT NOTE PT HAS BEEN SLEEPING T/O MOST OF THE DAY, AWAKENS BRIEFLY TO VERBAL SIMULI, HAS NOT BEEN ABLE TO INGEST ORAL INTAKE SHE CAN NOT STAY AWAKE. ORAL CARE PERFORMED, BED BATH PERFORMED TODAY, ATTENDS CHANGED NUMEROUS TIMES WITH NO URINE OUTPUT OR STOOL, LINENS CHANGED TODAY. D5 WAS REORDRED BY JOHANNA WHICH IS UNFISING WELL AT THIS TIME. QING GUNN WAS UPDATED ON PT STATUS TODAY. VSS.
[2020-02-20 04:54] LABS: BASOPHILS ABSOLUTE AUTO 0.07 K/mm3 (0.00-0.23); BASOPHILS PERCENT AUTO 1 % (0-2); EOSINOPHILS ABSOLUTE AUTO 0.35 K/mm3 (0.00-0.68); EOSINOPHILS PERCENT AUTO 5 % (0-6); Hematocrit 41.1 % (33.0-51.0); Hemoglobin 12.4 g/dL (11.5-16.0); IMMATURE GRAN ABSOLUTE AUTO 0.04 K/mm3 (0.00-0.10); IMMATURE GRAN PERCENT AUTO 1 % (0-1); LYMPHOCYTES PERCENT AUTO 26 % (21-46); MONOCYTES ABSOLUTE AUTO 0.88 K/mm3 (0.16-1.47); MONOCYTES PERCENT AUTO 12 % (4-13); Mean Corpuscular HGB 26.7 pg (26.0-34.0); Mean Corpuscular HGB Conc 30.2 g/dL (31.5-36.5); Mean Corpuscular Volume 89 fL (80-100); NEUTROPHILS ABSOLUTE AUTO 4.34 K/mm3 (1.96-9.15); NEUTROPHILS PERCENT AUTO 57 % (41-73); Platelet Count 96 K/mm3 (150-400); RDW Coefficient Variation 20.2 % (11.7-14.2); RDW Standard Deviation 65.1 fL (35.1-46.3); Red Blood Cell Count 4.64 M/mm3 (3.80-5.20); White Blood Cell Count 7.68 K/mm3 (4.00-11.30)
[2020-02-20 05:14] LABS: Anion Gap 8 mmol/L (6-16); Blood Urea Nitrogen 51 mg/dL (8-24); Bun/Creatinine Ratio 9.1 (12.0-20.0); CO2, Blood 29 mmol/L (21-32); Calcium, Blood 10.2 mg/dL (8.5-10.1); Chloride, Blood 99 mmol/L (98-108); Glomerular Filtration Rate 8 (60-); Glucose, Blood 118 mg/dL (70-99); Magnesium, Blood 2.2 mg/dL (1.6-2.4); Phosphorus, Blood 5.6 mg/dL (2.5-4.9); Sodium, Blood 136 mmol/L (136-145)
[2020-02-20 05:26] LABS: Prothrombin Time Results 40.3 Sec (9.7-11.5)
[2020-02-20 05:28] LABS: International Normalized Ratio 4.08
--- NOTE | 2020-02-20 05:51 | NUR ---
SHIFT SUMMARY PT SLEEPING IN ROOM COMFORTABLY AT THIS TIME. NO ACUYTE CHANGES IN STATUS T/O NIGHT. PT SLEPT IN SHORT PERIODS. PT REMAINED MORE LETHARGIC DURING NIGHT WAS REPORTED DURING DAY SHIFT. PT WAS MEDICATED FOR AGITATION ONCE DURING NIGHT. RESP EVEN UNLABIORED ON RA W/ SATS >92%. PT UNABLE TO ANSWER BEYOND YES OR NO QUESTIONS. PT RESTLESS IN BED AND REQUIRES FREQUENT REDIRECTION. CALL LIGHT IN REACH. BED ALARM ON FOR SAFETY.
--- NOTE | 2020-02-20 09:49 | NUR ---
pt to dialysis at approximately 0900
--- NOTE | 2020-02-20 14:02 | NUR ---
PT WAS IN OUT OF ROOM FOR DIALYSIS AT THE TIME HER CBG WAS TO BE TAKEN (1100). DONE WHEN PT CAME BACK.
--- NOTE | 2020-02-20 17:30 | NUR ---
SUMMARY NO ACUTE CHANGES T/O SHIFT. CBG STABLE. REC'D DIALYSIS THIS AM. SOMNOLENT T/O SHIFT UNTIL THIS AFTERNOON. CALLED OUT FOR A BRIEF TIME, ASKED TO BE REPOSITIONED AND THEN RETURNED TO SLEEP. IV TO LUE INFILTRATED. POWERGLIDE STARTED TO RUE. INFUSING W/O DIFFICULTY.
--- NOTE | 2020-02-20 23:49 | NUR ---
UPDATE PT MORE ALERT THIS SHIFT, HOWEVER CALLS OUT AND REMAINS CONFUSED; MED STATUS NO TELE; VSS; O2 SATS >93 ON RA; FABIAN POWER GLIDE INFUSING APPROPRIATELY; SEIZURE PADS REMAIN ON BED FOR SAFETY; PT INCONTINENT; ATTENDS IN PLACE; PO THICKENED FLUIDS ENCOURAGED; YOGURT & APPLESAUCE TOLERATED WELL; REPORT GIVEN TO ADRYAN MYERS FOR TRANSFER; TRANSFER PT TO MEDICAL FLOOR ROOM 344 WITH ALL BELONGINGS.
--- NOTE | 2020-02-21 06:02 | NUR ---
SHIFT SUMMARY/PCU XFER PT WAS PCU CARMELITA THIS SHIFT (2324), REPORT REC FROM ADRYAN SWIFT; PT HAS HAD NO ACUTE CHANGES SINCE ASSUMING CARE, HAS BEEN A&O W/SOME PERIODS OF CONFUSION, PT HAS ONLY SLEPT A FEW "CATNAPS" THIS SHIFT, HAS WATCHED TV MOST OF SHIFT, PT IS INCON, YELLS OUT INTO THE LISA INSTEAD OF USING CALL LIGHT, NO C/O ANY KIND, SITTING UP IN BED WATCHING TV AT THIS TIME, BED ALARM ACTIVE, WILL CONT TO MONITOR UNTIL REPORT GIVEN TO DAY RN.
[2020-02-21 06:41] LABS: BASOPHILS ABSOLUTE AUTO 0.07 K/mm3 (0.00-0.23); BASOPHILS PERCENT AUTO 1 % (0-2); EOSINOPHILS ABSOLUTE AUTO 0.52 K/mm3 (0.00-0.68); EOSINOPHILS PERCENT AUTO 6 % (0-6); Hematocrit 39.8 % (33.0-51.0); Hemoglobin 12.2 g/dL (11.5-16.0); IMMATURE GRAN ABSOLUTE AUTO 0.03 K/mm3 (0.00-0.10); IMMATURE GRAN PERCENT AUTO 0 % (0-1); LYMPHOCYTES ABSOLUTE AUTO 1.46 K/mm3 (0.84-5.20); LYMPHOCYTES PERCENT AUTO 16 % (21-46); MONOCYTES ABSOLUTE AUTO 0.85 K/mm3 (0.16-1.47); MONOCYTES PERCENT AUTO 9 % (4-13); Mean Corpuscular HGB 27.2 pg (26.0-34.0); Mean Corpuscular HGB Conc 30.7 g/dL (31.5-36.5); Mean Corpuscular Volume 89 fL (80-100); NEUTROPHILS ABSOLUTE AUTO 6.42 K/mm3 (1.96-9.15); NEUTROPHILS PERCENT AUTO 69 % (41-73); Platelet Count 116 K/mm3 (150-400); RDW Coefficient Variation 19.9 % (11.7-14.2); RDW Standard Deviation 63.8 fL (35.1-46.3); Red Blood Cell Count 4.49 M/mm3 (3.80-5.20); White Blood Cell Count 9.35 K/mm3 (4.00-11.30)
[2020-02-21 06:51] LABS: Albumin, Blood 2.8 g/dL (3.4-5.0); Anion Gap 8 mmol/L (6-16); Blood Urea Nitrogen 35 mg/dL (8-24); Bun/Creatinine Ratio 7.9 (12.0-20.0); CO2, Blood 32 mmol/L (21-32); Calcium, Blood 9.3 mg/dL (8.5-10.1); Chloride, Blood 96 mmol/L (98-108); Creatinine, Blood 4.45 mg/dL (0.40-1.00); Glomerular Filtration Rate 10 (60-); Glucose, Blood 153 mg/dL (70-99); International Normalized Ratio 2.77; Magnesium, Blood 1.9 mg/dL (1.6-2.4); Sodium, Blood 136 mmol/L (136-145)
--- NOTE | 2020-02-21 17:22 | NUR ---
PT AOX2 AND CONFUSED. PT WILL TALK AND SOMETIMES MAKES SENSE. PT HAS SIDE RAILS UP WITH PADS AND THIS SEEMS TO BE KEEPING HER IN BED AT THIS TIME. PT DOES NOT USE CALL LIGHT AND WILL CALL OUT. PT SEEMS TO BE DOING WELL AT THIS TIME BED ALARM IN PLACE. WILL CONTINUE TO MONITOR.
--- NOTE | 2020-02-22 04:29 | NUR ---
SHIFT SUMMARY PT HAS HAD NO ACUTE CHANGES THIS SHIFT, NO C/O ANY KIND, PT HAS BEEN CONFUSED & BECOMES ANGRY WHEN ATTEMPTING TO REORIENT HER, ATIVAN ADMIN X1 FOR AGITATION, PT THEN SLEPT T/O MOST OF THE NIGHT WAKING 2X FOR BRIEF CHANGE & REPOSITION. PT SLEEPING AT THIS TIME, BED ALARM ACTIVE, PT CONTINUING TO CALL OUT RATHER THAN USE THE CALL LIGHT, WILL CONT TO MONITOR UNTIL REPORT GIVEN TO DAY RN.
[2020-02-22 05:38] LABS: Hematocrit 36.8 % (33.0-51.0); Hemoglobin 11.3 g/dL (11.5-16.0)
[2020-02-22 05:52] LABS: International Normalized Ratio 1.91; Prothrombin Time Results 19.7 Sec (9.7-11.5)
[2020-02-22 05:57] LABS: Albumin, Blood 2.8 g/dL (3.4-5.0); Anion Gap 8 mmol/L (6-16); Blood Urea Nitrogen 39 mg/dL (8-24); Bun/Creatinine Ratio 7.7 (12.0-20.0); CO2, Blood 31 mmol/L (21-32); Calcium, Blood 9.3 mg/dL (8.5-10.1); Chloride, Blood 94 mmol/L (98-108); Creatinine, Blood 5.04 mg/dL (0.40-1.00); Glomerular Filtration Rate 9 (60-); Glucose, Blood 124 mg/dL (70-99); Magnesium, Blood 1.9 mg/dL (1.6-2.4); Phosphorus, Blood 4.3 mg/dL (2.5-4.9); Potassium, Blood 3.9 mmol/L (3.5-5.5); Sodium, Blood 133 mmol/L (136-145)
[2020-02-22] MEDS ORDERED: ACET325 PO (12:17)
[2020-02-22] MEDS ORDERED: LACT10SY PO (12:18)
[2020-02-22] MEDS ORDERED: VISBIOME PROBIOTIC (12:20)
[2020-02-22] MEDS ORDERED: PROBIOTIC1 EAC7 PO (12:22)
[2020-02-22] MEDS ORDERED: LEVFLO500 (12:23)
--- NOTE | 2020-02-22 14:56 | NUR ---
DISCHARGE PATIENT DISCHARGED BACK TO [facility]. PATIENT TRASPORTED VIA WHEELCHAIR TRANSPORT. DISCHARGE PACKET WITH LOGGING SPECIALIST. POWERGLIDE REMOVED WITHOUT ISSUE. BELONGINGS WITH PATIENT. REPORT CALLED TO FACILITY NURSE IESHA.
[2020-02-23 09:10] LABS: HBSAG SCREEN Negative (Negative); HEP A AB, IGM Negative (Negative); HEP B CORE AB, IGM Negative (Negative); HEP C VIRUS AB <0.1 (0.0-0.9)
== END 2020-02-22 14:53 | disposition home or self-care (01) | DRG 88 ==
LOC: ER 08:57 → MEDS 10:58 → PCU 10:58 → MEDS 02-20 23:43
PROVIDERS: Internal Medicine Nephrology; Physician Assistant; ADMIT Family Medicine
PROC: 5A1D70Z Performance of Urinary Filtration, Intermittent, Less than 6 Hours Per Day (ICD-10-PCS; principal; 2020-02-17)
PROC: 5A1D70Z Performance of Urinary Filtration, Intermittent, Less than 6 Hours Per Day (ICD-10-PCS; 2020-02-18)
PROC: 5A1D70Z Performance of Urinary Filtration, Intermittent, Less than 6 Hours Per Day (ICD-10-PCS; 2020-02-20)
DX: S06.0X9A Concussion with loss of consciousness of unspecified duration, initial encounter (principal); G92 Toxic encephalopathy; N18.6 End stage renal disease; I13.2 Hypertensive heart and chronic kidney disease with heart failure and with stage 5 chronic kidney disease, or end stage renal disease; I48.20 Chronic atrial fibrillation, unspecified; E87.1 Hypo-osmolality and hyponatremia; Z20.828 Contact with and (suspected) exposure to other viral communicable diseases; E87.5 Hyperkalemia; E11.22 Type 2 diabetes mellitus with diabetic chronic kidney disease; I50.9 Heart failure, unspecified; F03.90 Unspecified dementia, unspecified severity, without behavioral disturbance, psychotic disturbance, mood disturbance, and anxiety; E11.40 Type 2 diabetes mellitus with diabetic neuropathy, unspecified; M10.9 Gout, unspecified; K21.9 Gastro-esophageal reflux disease without esophagitis; E03.9 Hypothyroidism, unspecified; D63.1 Anemia in chronic kidney disease; G47.30 Sleep apnea, unspecified; E78.5 Hyperlipidemia, unspecified; M19.90 Unspecified osteoarthritis, unspecified site; I87.2 Venous insufficiency (chronic) (peripheral); R40.2351 Coma scale, best motor response, localizes pain, in the field [EMT or ambulance]; R40.2121 Coma scale, eyes open, to pain, in the field [EMT or ambulance]; R40.2221 Coma scale, best verbal response, incomprehensible words, in the field [EMT or ambulance]; J44.9 Chronic obstructive pulmonary disease, unspecified; R79.1 Abnormal coagulation profile; T45.515A Adverse effect of anticoagulants, initial encounter; D69.6 Thrombocytopenia, unspecified; G25.81 Restless legs syndrome; E87.70 Fluid overload, unspecified; E83.52 Hypercalcemia; E83.39 Other disorders of phosphorus metabolism; W18.30XA Fall on same level, unspecified, initial encounter; Y92.129 Unspecified place in nursing home as the place of occurrence of the external cause; Z66 Do not resuscitate; Z99.2 Dependence on renal dialysis; Z79.891 Long term (current) use of opiate analgesic; Z79.899 Other long term (current) drug therapy; Z99.81 Dependence on supplemental oxygen; Z95.2 Presence of prosthetic heart valve; Z88.0 Allergy status to penicillin; Z88.1 Allergy status to other antibiotic agents; Z88.7 Allergy status to serum and vaccine; Z88.8 Allergy status to other drugs, medicaments and biological substances
CPT/HCPCS: 36415; 70450; 71045; 80053; 80069; 80074; 82140; 82947; 83735; 84100; 84484; 85014; 85018; 85025; 85610; 86317; 92610; 93005; 93010; 94644; 96365; 96375; 99285-25; A9270; A9270-GY; C1751; J0610; J1630; J1815; J1956; J2060; J3010; J7030; J7070; J7799; U0002